=== PATIENT | male | born 1950 | race Caucasian/White ===

== ENCOUNTER 2017-08-25 09:53 | Outpatient (CLI) | payer MEDICARE, SELFPAY | END 2017-08-25 16:29 | disposition home or self-care (01) | LOC: ACC 09:56 | PROVIDERS: Family Provider Emergency Medicine; PCP Emergency Medicine; Visit Provider Emergency Medicine | DX: Z79.01 Long term (current) use of anticoagulants (principal); Z51.81 Encounter for therapeutic drug level monitoring; I48.91 Unspecified atrial fibrillation | CPT/HCPCS: 85610 ==

== ENCOUNTER 2017-09-25 10:46 | Outpatient (CLI) | payer MEDICARE, SELFPAY ==
[2017-09-25 13:14] LABS: PHA INR Fingerstick 2.2 (0.9-1.1)
== END 2017-09-25 13:15 | disposition home or self-care (01) ==
LOC: ACC 10:48
PROVIDERS: PCP Emergency Medicine; Visit Provider Emergency Medicine
DX: Z79.01 Long term (current) use of anticoagulants (principal); Z51.81 Encounter for therapeutic drug level monitoring; I48.91 Unspecified atrial fibrillation
CPT/HCPCS: 85610; 99211; G0463

== ENCOUNTER → 2017-10-22 10:45 | Outpatient (REF) | payer MEDICARE, SELFPAY ==
[2017-10-22 13:36] LABS: Amphetamine/Metha Screen,Urine Negative ng/mL (<1000); Barbiturates Screen,Urine Negative ng/mL (<200); Benzodiazepines Screen,Urine Positive ng/mL (200); Cannabinoid Screen,Urine Positive ng/mL (<50); Cocaine Screen,Urine Negative ng/g (<300); Methadone Screen,Urine Negative ng/mL (<300); Opiate Screen,Urine Positive ng/mL (<300); Phencyclidine Screen,Urine Negative ng/mL (<25)
== END ==
LOC: LAB 10:45
PROVIDERS: Visit Provider Emergency Medicine
DX: Z79.899 Other long term (current) drug therapy (principal)
CPT/HCPCS: 80305

== ENCOUNTER → 2018-01-22 16:14 | Outpatient (REF) | payer MEDICARE, SELFPAY ==
[2018-01-22 19:22] LABS: Amphetamine/Metha Screen,Urine Negative ng/mL (<1000); Barbiturates Screen,Urine Negative ng/mL (<200); Benzodiazepines Screen,Urine Positive ng/mL (<200); Cannabinoid Screen,Urine Positive ng/mL (<50); Cocaine Screen,Urine Negative ng/mL (<300); Methadone Screen,Urine Negative ng/mL (<300); Opiate Screen,Urine Positive ng/mL (<300); Phencyclidine Screen,Urine Negative ng/mL (<25)
== END ==
LOC: LAB 16:14
PROVIDERS: Visit Provider Emergency Medicine
DX: M51.16 Intervertebral disc disorders with radiculopathy, lumbar region (principal)
CPT/HCPCS: 80305

== ENCOUNTER → 2018-02-24 07:43 | Outpatient (REF) | payer MEDICARE, SELFPAY | LOC: LAB 07:43 | PROVIDERS: Visit Provider Emergency Medicine | DX: Z79.899 Other long term (current) drug therapy (principal) ==

== ENCOUNTER → 2018-04-21 07:37 | Outpatient (REF) | payer MEDICARE, SELFPAY ==
[2018-04-21 18:33] LABS: Basophils # 0.1 K/mm3 (0-0.2); Basophils % 0.8 % (0.1-2.0); Eosinophils # 0.8 K/mm3 (0.0-0.4); Eosinophils % 9.7 % (0.1-12.0); Hematocrit 48.3 % (42.0-52.0); Hemoglobin 15.6 g/dL (14.1-18.0); Lymphocytes # 2.9 K/mm3 (0.7-4.5); Lymphocytes % 33.8 K/mm3 (10-50); Mean Corpuscular HGB Conc 32.4 g/dL (31.8-35.4); Mean Corpuscular Hemoglobin 34.3 pg (27.0-31.2); Mean Corpuscular Volume 105.9 fl (80-94); Mean Platelet Volume 10.2 fl (7.4-10.4); Monocytes # 0.5 K/mm3 (0.1-1.0); Monocytes % 5.7 % (1.7-9.3); Neutrophils # 4.2 K/mm3 (1.8-7.8); Neutrophils % 49.9 % (37.0-80.0); Platelet Count 227 K/mm3 (142-424); Red Blood Count 4.56 M/mm3 (4.60-6.20); Red Cell Distribution Width 14.2 % (11.5-17.5); White Blood Count 8.5 K/mm3 (4.8-10.8)
[2018-04-21 18:45] LABS: Alanine Aminotransferase 21 U/L (12-78); Albumin Level 3.2 gm/dL (3.4-5.0); Alkaline Phosphatase 64 U/L (46-116); Anion Gap 11.9 mEq/L (5-15); Aspartate Amino Transferase 17 U/L (15-37); Bilirubin,Total 0.4 mg/dL (0.2-1.0); Blood Urea Nitrogen 4 mg/dL (7-18); Calcium 9.9 mg/dL (8.5-10.1); Carbon Dioxide 30 mmol/L (21.0-32.0); Chloride 101 mmol/L (98-107); Creatinine,Serum 0.81 mg/dL (0.70-1.30); Estimated Glomerular Filt Rate 95 ml/min (>60); Free T4 (Free Thyroxine) 1.12 ng/dl (0.76-1.46); GFR (African American) 115 ML/MIN (>60); Globulin 3.3 gm/dl (1.3-3.2); Glucose 65 mg/dL (74-106); Potassium 3.9 mmoL/L (3.5-5.1); Sodium 139 mmol/L (136-145); Thyroid Stimulating Hormone 1.42 uIU/ml (0.358-3.740); Total Protein,Serum 6.5 gm/dL (6.4-8.2)
[2018-04-23 15:41] LABS: Prostate Specific Ag 4.4 ng/mL (0.0-4.0)
[2018-04-23 15:42] LABS: PSA, Free 1.06 ng/mL
== END ==
LOC: LAB 07:37
PROVIDERS: Visit Provider Emergency Medicine
DX: I10 Essential (primary) hypertension (principal); N40.0 Benign prostatic hyperplasia without lower urinary tract symptoms; R53.83 Other fatigue
CPT/HCPCS: 80053; 84153; 84154; 84439; 84443; 85025

== ENCOUNTER 2018-05-21 12:15 | Outpatient (CLI) | payer MEDICARE, SELFPAY ==
[2018-05-21 14:27] LABS: PHA INR Fingerstick 1.2 (0.9-1.1)
== END 2018-05-21 14:29 | disposition home or self-care (01) ==
LOC: ACC 12:17
PROVIDERS: PCP Emergency Medicine; Visit Provider Emergency Medicine
DX: Z51.81 Encounter for therapeutic drug level monitoring (principal); Z79.01 Long term (current) use of anticoagulants
CPT/HCPCS: 85610; 99211; G0463

== ENCOUNTER 2018-05-29 12:45 | Outpatient (CLI) | payer MEDICARE, SELFPAY ==
[2018-05-29 13:47] LABS: PHA INR Fingerstick 1.3 (0.9-1.1)
== END 2018-05-29 13:57 | disposition home or self-care (01) ==
LOC: ACC 12:47
PROVIDERS: PCP Emergency Medicine; Visit Provider Emergency Medicine
DX: Z51.81 Encounter for therapeutic drug level monitoring (principal); Z79.01 Long term (current) use of anticoagulants; I48.91 Unspecified atrial fibrillation
CPT/HCPCS: 85610; 99211; G0463

== ENCOUNTER 2018-06-05 11:23 | Outpatient (CLI) | payer MEDICARE, SELFPAY ==
[2018-06-05 13:53] LABS: PHA INR Fingerstick 1.3 (0.9-1.1)
== END 2018-06-05 14:15 | disposition home or self-care (01) ==
LOC: ACC 11:24
PROVIDERS: PCP Emergency Medicine; Visit Provider Emergency Medicine
DX: Z51.81 Encounter for therapeutic drug level monitoring (principal); Z79.01 Long term (current) use of anticoagulants
CPT/HCPCS: 85610; 99211; G0463

== ENCOUNTER 2018-06-12 12:29 | Outpatient (CLI) | payer MEDICARE, SELFPAY ==
[2018-06-12 14:28] LABS: PHA INR Fingerstick 2.8 (0.9-1.1)
== END 2018-06-12 14:29 | disposition home or self-care (01) ==
LOC: ACC 12:30
PROVIDERS: PCP Emergency Medicine; Visit Provider Surgery
DX: I48.91 Unspecified atrial fibrillation (principal); Z51.81 Encounter for therapeutic drug level monitoring; Z79.01 Long term (current) use of anticoagulants
CPT/HCPCS: 85610; 99211; G0463

== ENCOUNTER 2018-06-24 13:31 | Outpatient (CLI) | payer MEDICARE, SELFPAY ==
[2018-06-24 14:41] LABS: PHA INR Fingerstick 1.9 (0.9-1.1)
== END 2018-06-24 14:43 | disposition home or self-care (01) ==
LOC: ACC 13:35
PROVIDERS: PCP Emergency Medicine; Visit Provider Emergency Medicine
DX: Z79.01 Long term (current) use of anticoagulants (principal)
CPT/HCPCS: 85610; 99211; G0463

== ENCOUNTER 2018-07-03 12:35 | Outpatient (CLI) | payer MEDICARE, SELFPAY ==
[2018-07-03 14:08] LABS: PHA INR Fingerstick 2.2 (0.9-1.1)
== END 2018-07-03 14:13 | disposition home or self-care (01) ==
LOC: ACC 12:37
PROVIDERS: PCP Emergency Medicine; Visit Provider Emergency Medicine
DX: Z51.81 Encounter for therapeutic drug level monitoring (principal); Z79.01 Long term (current) use of anticoagulants
CPT/HCPCS: 85610; 99211; G0463

== ENCOUNTER → 2018-09-18 14:34 | Outpatient (CLI) | payer MEDICARE, SELFPAY ==
[2018-09-18 18:18] LABS: Amphetamine/Metha Screen,Urine Negative ng/mL (<1000); Barbiturates Screen,Urine Negative ng/mL (<200); Benzodiazepines Screen,Urine Positive ng/mL (<200); Cannabinoid Screen,Urine Positive ng/mL (<50); Cocaine Screen,Urine Negative ng/mL (<300); Methadone Screen,Urine Negative ng/mL (<300); Opiate Screen,Urine Positive ng/mL (<300); Phencyclidine Screen,Urine Negative ng/mL (<25)
== END ==
PROVIDERS: Visit Provider Emergency Medicine
DX: M51.16 Intervertebral disc disorders with radiculopathy, lumbar region (principal)
CPT/HCPCS: 80305

== ENCOUNTER 2018-09-25 12:33 | Outpatient (CLI) | payer MEDICARE, SELFPAY ==
[2018-09-25 14:26] LABS: PHA INR Fingerstick 3.1 (0.9-1.1)
== END 2018-09-25 14:31 | disposition home or self-care (01) ==
LOC: ACC 12:34
PROVIDERS: PCP Emergency Medicine; Visit Provider Emergency Medicine
DX: Z51.81 Encounter for therapeutic drug level monitoring (principal); Z79.01 Long term (current) use of anticoagulants
CPT/HCPCS: 85610; 99211; G0463

== ENCOUNTER → 2018-10-01 08:27 | Outpatient (CLI) | payer MEDICARE, SELFPAY ==
--- NOTE | 2018-10-01 08:30 | US_ITS ---
US gallbladder HISTORY: Right upper quadrant pain ITS.REASON: ruq pain ORDERING PHYSICIAN: [facility] [place] MD PATIENT AGE: 68 years Comparison: None FINDINGS: PANCREAS: Unremarkable. No obvious mass or abnormal fluid collection. No ductal dilatation LIVER: No focal liver lesions demonstrated. Homogeneous echogenicity. No intrahepatic biliary ductal dilatation evident. Appropriate direction of blood flow within the portal vein. Portal vein is slightly prominent at 8 mm. RIGHT KIDNEY: Unremarkable. Normal size and echogenicity. No hydronephrosis. There is a 2.9 cm right renal cyst centrally and an exophytic 1 cm cyst superiorly GALLBLADDER: No gallstones, gallbladder wall thickening, pericholecystic fluid, or biliary dilatation. IMPRESSION: Negative gallbladder/right upper quadrant ultrasound 2.9 cm right renal cyst
== END ==
PROVIDERS: PCP Emergency Medicine; Visit Provider Emergency Medicine
DX: R10.11 Right upper quadrant pain (principal)
CPT/HCPCS: 76705

== ENCOUNTER 2018-10-19 10:54 | Outpatient (CLI) | payer MEDICARE, SELFPAY | END 2018-10-19 13:41 | disposition home or self-care (01) | LOC: ACC 10:57 | PROVIDERS: PCP Emergency Medicine; Visit Provider Emergency Medicine | DX: Z51.81 Encounter for therapeutic drug level monitoring (principal); Z79.01 Long term (current) use of anticoagulants; I48.91 Unspecified atrial fibrillation | CPT/HCPCS: 99211; G0463 ==

== ENCOUNTER 2018-11-18 10:46 | Outpatient (CLI) | payer MEDICARE, SELFPAY ==
[2018-11-18 14:25] LABS: PHA INR Fingerstick 2.8 (0.9-1.1)
== END 2018-11-18 14:27 | disposition home or self-care (01) ==
LOC: ACC 10:48
PROVIDERS: PCP Emergency Medicine; Visit Provider Emergency Medicine
DX: Z51.81 Encounter for therapeutic drug level monitoring (principal); Z79.01 Long term (current) use of anticoagulants; I48.91 Unspecified atrial fibrillation
CPT/HCPCS: 85610; 99211; G0463

== ENCOUNTER 2018-12-02 10:38 | Outpatient (CLI) | payer MEDICARE, SELFPAY ==
[2018-12-02 13:38] LABS: PHA INR Fingerstick 1.3 (0.9-1.1)
== END 2018-12-02 13:50 | disposition home or self-care (01) ==
LOC: ACC 10:40
PROVIDERS: PCP Emergency Medicine; Visit Provider Emergency Medicine
DX: Z51.81 Encounter for therapeutic drug level monitoring (principal); Z79.01 Long term (current) use of anticoagulants; I48.91 Unspecified atrial fibrillation
CPT/HCPCS: 85610; 99211; G0463

== ENCOUNTER 2018-12-09 13:01 | Outpatient (CLI) | payer MEDICARE, SELFPAY ==
[2018-12-09 13:44] LABS: PHA INR Fingerstick 1.9 (0.9-1.1)
== END 2018-12-09 13:53 | disposition home or self-care (01) ==
LOC: ACC 13:02
PROVIDERS: PCP Emergency Medicine; Visit Provider Emergency Medicine
DX: Z51.81 Encounter for therapeutic drug level monitoring (principal); Z79.01 Long term (current) use of anticoagulants; I48.91 Unspecified atrial fibrillation
CPT/HCPCS: 85610; 99211; G0463

== ENCOUNTER 2019-03-19 10:46 | Outpatient (CLI) | payer MEDICARE, SELFPAY ==
[2019-03-19 11:02] LABS: PHA INR Fingerstick 2.1 (0.9-1.1)
== END 2019-03-19 11:08 | disposition home or self-care (01) ==
PROVIDERS: PCP Emergency Medicine; Visit Provider Emergency Medicine
DX: Z79.01 Long term (current) use of anticoagulants (principal)
CPT/HCPCS: 85610; 99211; G0463

== ENCOUNTER → 2019-03-19 14:25 | Outpatient (CLI) | payer MEDICARE, SELFPAY ==
[2019-03-19 16:33] LABS: Amphetamine/Metha Screen,Urine Negative ng/mL (<1000); Barbiturates Screen,Urine Negative ng/mL (<200); Benzodiazepines Screen,Urine Positive ng/mL (<200); Cannabinoid Screen,Urine Positive ng/mL (<50); Cocaine Screen,Urine Negative ng/mL (<300); Methadone Screen,Urine Negative ng/mL (<300); Opiate Screen,Urine Positive ng/mL (<300); Phencyclidine Screen,Urine Negative ng/mL (<25)
== END ==
PROVIDERS: Visit Provider Emergency Medicine
DX: M51.16 Intervertebral disc disorders with radiculopathy, lumbar region (principal); Z51.81 Encounter for therapeutic drug level monitoring; Z79.01 Long term (current) use of anticoagulants; I48.91 Unspecified atrial fibrillation
CPT/HCPCS: 80305; 85610; 99211; G0463

== ENCOUNTER → 2019-03-30 13:27 | Outpatient (CLI) | payer MEDICARE, SELFPAY ==
[2019-03-30 13:32] LABS: MANUAL DIFFERENTIAL MANUAL DIFFERENTIAL (MANUAL DIFF)
[2019-03-30 13:40] LABS: Basophils % 0.5 % (0.1-2.0); Eosinophils # 0.6 K/mm3 (0.0-0.4); Eosinophils % 9.1 % (0.1-12.0); Hematocrit 48.2 % (42.0-52.0); Hemoglobin 15.5 g/dL (14.1-18.0); Mean Corpuscular HGB Conc 32.2 g/dL (31.8-35.4); Mean Corpuscular Hemoglobin 34.2 pg (27.0-31.2); Mean Corpuscular Volume 106.2 fl (80-94); Monocytes # 0.4 K/mm3 (0.1-1.0); Monocytes % 6.2 % (1.7-9.3); Neutrophils # 2.9 K/mm3 (1.8-7.8); Neutrophils % 41.2 % (37.0-80.0); Platelet Count 184 K/mm3 (142-424); Red Blood Count 4.54 M/mm3 (4.60-6.20)
[2019-03-30 14:29] LABS: Alanine Aminotransferase 15 U/L (12-78); Alkaline Phosphatase 44 U/L (46-116); Anion Gap 11.3 mEq/L (5-15); Aspartate Amino Transferase 16 U/L (15-37); Bilirubin,Total 0.5 mg/dL (0.2-1.0); Blood Urea Nitrogen 6 mg/dL (7-18); Calcium 9.3 mg/dL (8.5-10.1); Carbon Dioxide 29 mmol/L (21.0-32.0); Chloride 107 mmol/L (98-107); Chol/HDL Ratio 3.3 (1-3.5); Cholesterol 149 mg/dL (140-200); Creatinine,Serum 0.87 mg/dL (0.70-1.30); Estimated Glomerular Filt Rate 88 ml/min (>60); Free T4 (Free Thyroxine) 1.05 ng/dl (0.76-1.46); GFR (African American) 106 ML/MIN (>60); Glucose 90 mg/dL (74-106); HDL Cholesterol 45 mg/dL (27-67); LDL Cholesterol 83 mg/dL (0-130); Potassium 4.3 mmoL/L (3.5-5.1); Sodium 143 mmol/L (136-145); Thyroid Stimulating Hormone 2.94 uIU/ml (0.358-3.740); Triglycerides 107 mg/dL (30-200); VLDL Cholesterol 21 mg/dL (0-40)
[2019-03-30 16:44] LABS: Eosinophils % 12 % (0-3); Lymphocytes % 42 % (10-50); Monocytes % 8 % (2-9); Neutrophils % 38 % (42-76); Platelet Estimate Normal; RBC Morphology Normal; Total Cells Counted 100
[2019-04-01 06:13] LABS: Vitamin B12 1767 pg/mL (232-1245); Vitamin D 25 Hydroxy 35.7 ng/mL (30.0-100.0)
== END ==
PROVIDERS: Visit Provider Emergency Medicine
DX: R53.83 Other fatigue (principal); I48.91 Unspecified atrial fibrillation; E78.5 Hyperlipidemia, unspecified
CPT/HCPCS: 80053; 80061; 82607; 82652; 84439; 84443; 85007; 85014; 85018; 85048; 85049

== ENCOUNTER 2019-05-13 08:17 | Outpatient (CLI) | payer MEDICARE, SELFPAY ==
[2019-05-13 14:30] LABS: PHA INR Fingerstick 1.7 (0.9-1.1)
== END 2019-05-13 14:32 | disposition home or self-care (01) ==
LOC: ACC 08:18
PROVIDERS: PCP Emergency Medicine; Visit Provider Emergency Medicine
DX: Z51.81 Encounter for therapeutic drug level monitoring (principal); Z79.01 Long term (current) use of anticoagulants; I48.91 Unspecified atrial fibrillation
CPT/HCPCS: 85610; 99211; G0463

== ENCOUNTER 2019-06-03 11:34 | Outpatient (CLI) | payer MEDICARE, SELFPAY ==
[2019-06-04 09:39] LABS: PHA INR Fingerstick 2.4 (0.9-1.1)
== END 2019-06-04 09:43 | disposition home or self-care (01) ==
LOC: ACC 11:35
PROVIDERS: PCP Emergency Medicine; Visit Provider Emergency Medicine
DX: Z51.81 Encounter for therapeutic drug level monitoring (principal); Z79.01 Long term (current) use of anticoagulants; I48.91 Unspecified atrial fibrillation
CPT/HCPCS: 85610; 99211; G0463

== ENCOUNTER → 2019-08-19 14:17 | Outpatient (CLI) | payer MEDICARE, SELFPAY ==
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
--- NOTE | 2019-08-19 14:26 | XR_ITS ---
PROCEDURE: XR FOOT WT BEARING LT 3V CLINICAL INDICATION: pain COMPARISON: FTR3 FOOT-RT-3 VIEWS from 04/22/2013 FINDINGS: No fracture or dislocation. No lytic or blastic change. There is normal mineralization. The joint spaces are well-preserved. No significant degenerative/arthritic changes. No erosive changes evident. Other findings:There are degenerative changes at the ankle joint. IMPRESSION: No acute findings. Dictated by: Anurag Quintanilla MD 08/19/2019 15:10 Electronically signed by Anurag Quintanilla MD in [facility] 08/19/2019 15:10
[2019-08-19 14:36] LABS: Basophils # 0.1 K/mm3 (0-0.2); Basophils % 0.8 % (0.1-2.0); Eosinophils # 0.8 K/mm3 (0.0-0.4); Eosinophils % 10.9 % (0.1-12.0); Hematocrit 49.4 % (42.0-52.0); Hemoglobin 16.3 g/dL (14.1-18.0); Lymphocytes # 3.1 K/mm3 (0.7-4.5); Lymphocytes % 42.5 % (10-50); Mean Corpuscular HGB Conc 32.9 g/dL (31.8-35.4); Mean Corpuscular Hemoglobin 33.6 pg (27.0-31.2); Mean Corpuscular Volume 102.1 fl (80-94); Monocytes # 0.4 K/mm3 (0.1-1.0); Neutrophils % 40.7 % (37.0-80.0); Platelet Count 243 K/mm3 (142-424); Red Blood Count 4.84 M/mm3 (4.60-6.20); Red Cell Distribution Width 13.7 % (11.5-17.5); White Blood Count 7.4 K/mm3 (4.8-10.8)
[2019-08-19 15:11] LABS: Alanine Aminotransferase 24 U/L (12-78); Albumin Level 3.4 gm/dL (3.4-5.0); Albumin/Globulin Ratio 1.1 (1.1-1.8); Alkaline Phosphatase 51 U/L (46-116); Anion Gap 8.4 mEq/L (5-15); Aspartate Amino Transferase 19 U/L (15-37); Bilirubin,Total 0.5 mg/dL (0.2-1.0); Blood Urea Nitrogen 7 mg/dL (7-18); C-Reactive Protein 1.6 mg/dL (0.0-0.9); Calcium 9.8 mg/dL (8.5-10.1); Carbon Dioxide 31 mmol/L (21.0-32.0); Chloride 107 mmol/L (98-107); Creatinine,Serum 0.79 mg/dL (0.70-1.30); Estimated Glomerular Filt Rate 98 ml/min (>60); GFR (African American) 118 ML/MIN (>60); Globulin 3.2 gm/dl (1.3-3.2); Glucose 85 mg/dL (74-106); Potassium 4.4 mmoL/L (3.5-5.1); Sodium 142 mmol/L (136-145); Total Protein,Serum 6.6 gm/dL (6.4-8.2)
[2019-08-19 15:50] LABS: Erythrocyte Sedimentation Rate 17 mm/hr (0-20)
[2019-08-21 15:30] LABS: Vitamin D 25 Hydroxy 39.7 ng/mL (30.0-100.0)
== END ==
PROVIDERS: Visit Provider Podiatrist
DX: M79.672 Pain in left foot (principal); M79.671 Pain in right foot; E11.9 Type 2 diabetes mellitus without complications
CPT/HCPCS: 36415; 73630; 80053; 80323; 82652; 85025; 85651; 86140; 87070; 87077; 87186; 87205

== ENCOUNTER → 2019-08-25 08:17 | Outpatient (CLI) | payer MEDICARE, SELFPAY ==
--- NOTE | 2019-08-25 08:21 | US_ITS ---
APPROVED REPORT Exam Type: Lower Extremity Segmental Pressures Tableau Administrator: Lilia Robledo RVT Indications Rest Pain: Bilaterally PAD Current Smoker History of Smoking Pt has osteomyletitis rt toe,Pt has had bypass surgery on the right leg Pressures/Indices Right Indices Left Indices Brachial 118.00 mmHg Brachial 128.00 mmHg Low Thigh 150.00 mmHg 1.17 Low Thigh 153.00 mmHg 1.20 Calf 151.00 mmHg 1.18 Calf 140.00 mmHg 1.09 Ankle(PT) 140.00 mmHg 1.09 Ankle(PT) 157.00 mmHg 1.23 Ankle(DP) 164.00 mmHg 1.28 Ankle(DP) 148.00 mmHg 1.16 Digit 105.00 mmHg 0.82 Digit 91.00 mmHg 0.71 Findings RT TESSIE:1.09 LT TESSIE:1.23 RT TBI:0.82 LT TBI:1.23 Normal pulses bilateral Normal waveforms bilateral Conclusion No evidence significant arterial disease throughout the right and left lower extremities as evidenced by normal resting PVR waveforms and normal resting indices. Electronically signed by : Anurag Quintanilla MD 08/25/2019 18:23:28
--- NOTE | 2019-08-25 09:19 | MR_ITS ---
PROCEDURE: MR FOOT RT WO/W CON CLINICAL INDICATION: toe pain, wound, OM Wound of the great toe with pain swelling and drainage. Abnormal radiograph COMPARISON: XR FOOT WT BEARING LT 3V from 08/19/2019 XR FOOT WT BEARING RT 3V from 08/19/2019 TECHNIQUE: Routine multiplanar multi echo sequences are performed without and with gadolinium enhancement. FINDINGS: There is a lytic defect involving the proximal and medial aspect of the distal phalanx of the great toe corresponding to the radiographic abnormality. This shows increased T2 signal and demonstrates contrast enhancement. In addition, there is increased T2 signal involving the remaining aspect of the distal phalanx as well as the distal aspect of the proximal phalanx of the great toe. There is some mild enhancement along the distal and lateral aspect of the proximal phalanx of the great toe. There does appear to be a sinus tract from the lytic lesion to the skin surface medially with contrast enhancement along sinus tract and involving the cavity of the lytic lesion. These findings are consistent with osteomyelitis. Incidental note is made of a small amount of fluid in the ankle joint and along the posterior aspect of the distal tibia. Small focus of increased T2 signal involves the talar dome laterally suggesting an area of osteochondrosis. This measures approximately 7 mm. This does show some minimal contrast enhancement.. There is thickening of the nail bed of the great toe with contrast enhancement of the nail bed with cellulitis of the distal phalanx of the great toe. The ATFL is not identified and may be torn. The study was not tailored to the ankle however. IMPRESSION: The findings are compatible with osteomyelitis of the distal phalanx of the great toe with a sinus tract directed medially. There is also bone marrow edema of the distal aspect of the proximal phalanx of the great toe with some mild enhancement distally and laterally also suggesting osteomyelitis. Small area of suspected osteochondrosis of the talar dome laterally Dictated by: Anurag Quintanilla MD 08/26/2019 18:41 Electronically signed by Anurag Quintanilla MD in [facility] 08/26/2019 18:41
== END ==
PROVIDERS: PCP Emergency Medicine; Visit Provider Nurse Practitioner
DX: R09.89 Other specified symptoms and signs involving the circulatory and respiratory systems (principal); M86.9 Osteomyelitis, unspecified
CPT/HCPCS: 73720; 93923; A9576

== ENCOUNTER 2019-09-03 12:08 | Outpatient (CLI) | payer MEDICARE, SELFPAY ==
[2019-09-03 14:58] LABS: PHA INR Fingerstick 3.7 (0.9-1.1)
== END 2019-09-03 15:15 | disposition home or self-care (01) ==
LOC: ACC 12:10
PROVIDERS: PCP Emergency Medicine; Visit Provider Emergency Medicine
DX: Z51.81 Encounter for therapeutic drug level monitoring (principal); Z79.01 Long term (current) use of anticoagulants; I48.91 Unspecified atrial fibrillation
CPT/HCPCS: 85610; 99211; G0463

== ENCOUNTER 2019-09-06 14:03 | Outpatient (CLI) | payer MEDICARE, SELFPAY ==
[2019-09-06 15:46] LABS: PHA INR Fingerstick 1.5 (0.9-1.1)
== END 2019-09-06 15:45 | disposition home or self-care (01) ==
PROVIDERS: PCP Emergency Medicine; Visit Provider Emergency Medicine
DX: Z86.711 Personal history of pulmonary embolism (principal); Z51.81 Encounter for therapeutic drug level monitoring; Z79.01 Long term (current) use of anticoagulants; I48.91 Unspecified atrial fibrillation
CPT/HCPCS: 85610; 99211; G0463

== ENCOUNTER 2019-10-14 11:02 | Outpatient (CLI) | payer MEDICARE, SELFPAY ==
[2019-10-14 12:08] LABS: PHA INR Fingerstick 2.2 (0.9-1.1)
== END 2019-10-14 12:09 | disposition home or self-care (01) ==
LOC: ACC 11:03
PROVIDERS: PCP Emergency Medicine; Visit Provider Emergency Medicine
DX: Z51.81 Encounter for therapeutic drug level monitoring (principal); Z79.01 Long term (current) use of anticoagulants; I48.91 Unspecified atrial fibrillation
CPT/HCPCS: 85610; 99211; G0463

== ENCOUNTER 2019-11-09 13:06 | Outpatient (CLI) | payer MEDICARE, SELFPAY ==
[2019-11-09 15:05] LABS: PHA INR Fingerstick 1.5 (0.9-1.1)
== END 2019-11-09 15:08 | disposition home or self-care (01) ==
LOC: ACC 13:07
PROVIDERS: PCP Emergency Medicine; Visit Provider Emergency Medicine
DX: Z51.81 Encounter for therapeutic drug level monitoring (principal); Z79.01 Long term (current) use of anticoagulants
CPT/HCPCS: 85610; 99211; G0463

== ENCOUNTER → 2019-11-12 16:43 | Outpatient (CLI) | payer MEDICARE, SELFPAY ==
[2019-11-12 18:24] LABS: Amphetamine/Metha Screen,Urine Negative ng/ml (<1000)
[2019-11-12 18:26] LABS: Barbiturates Screen,Urine Negative ng/ml (<200); Benzodiazepines Screen,Urine Negative ng/ml (<200)
[2019-11-12 18:27] LABS: Cannabinoid Screen,Urine Positive ng/ml (<50)
[2019-11-12 18:28] LABS: Cocaine Screen,Urine Negative ng/ml (<300)
[2019-11-12 18:29] LABS: Methadone Screen,Urine Negative ng/ml (<300); Opiate Screen,Urine Positive ng/ml (<300)
[2019-11-12 18:30] LABS: Phencyclidine Screen,Urine Negative ng/ml (<25)
== END ==
PROVIDERS: Visit Provider Emergency Medicine
DX: M51.16 Intervertebral disc disorders with radiculopathy, lumbar region (principal)
CPT/HCPCS: 80305

== ENCOUNTER 2019-11-29 10:50 | Outpatient (CLI) | payer MEDICARE, SELFPAY ==
[2019-11-29 12:52] LABS: INR 5.89 (0.9-1.1); Prothrombin Time 56.3 seconds (9.4-11.8)
[2019-11-29 15:17] LABS: PHA INR Fingerstick 4.8 (0.9-1.1)
== END 2019-11-29 15:23 | disposition home or self-care (01) ==
PROVIDERS: PCP Emergency Medicine; Visit Provider Emergency Medicine
DX: Z51.81 Encounter for therapeutic drug level monitoring (principal); Z79.01 Long term (current) use of anticoagulants; I48.91 Unspecified atrial fibrillation
CPT/HCPCS: 36415; 85610; 99211; G0463

== ENCOUNTER → 2019-12-06 11:42 | Outpatient (CLI) | payer MEDICARE, SELFPAY ==
[2019-12-06 12:10] LABS: INR 1.06 (0.9-1.1)
== END ==
PROVIDERS: Visit Provider Emergency Medicine
DX: Z51.81 Encounter for therapeutic drug level monitoring (principal); Z79.01 Long term (current) use of anticoagulants
CPT/HCPCS: 36415; 85610

== ENCOUNTER 2019-12-13 10:57 | Outpatient (CLI) | payer MEDICARE, SELFPAY ==
[2019-12-13 12:02] LABS: PHA INR Fingerstick 2.9 (0.9-1.1)
== END 2019-12-13 12:03 | disposition home or self-care (01) ==
LOC: ACC 10:57
PROVIDERS: PCP Emergency Medicine; Visit Provider Emergency Medicine
DX: Z51.81 Encounter for therapeutic drug level monitoring (principal); Z79.01 Long term (current) use of anticoagulants; I48.91 Unspecified atrial fibrillation
CPT/HCPCS: 85610; 99211; G0463

== ENCOUNTER 2019-12-23 11:21 | Outpatient (CLI) | payer MEDICARE, SELFPAY ==
[2019-12-23 13:34] LABS: PHA INR Fingerstick 1.8 (0.9-1.1)
== END 2019-12-23 13:37 | disposition home or self-care (01) ==
LOC: ACC 11:23
PROVIDERS: PCP Emergency Medicine; Visit Provider Emergency Medicine
DX: Z51.81 Encounter for therapeutic drug level monitoring (principal); Z79.01 Long term (current) use of anticoagulants; I48.91 Unspecified atrial fibrillation
CPT/HCPCS: 85610; 99211; G0463

== ENCOUNTER 2019-12-30 11:37 | Outpatient (CLI) | payer MEDICARE, SELFPAY ==
[2019-12-30 14:28] LABS: PHA INR Fingerstick 1.7 (0.9-1.1)
== END 2019-12-30 14:30 | disposition home or self-care (01) ==
LOC: ACC 11:38
PROVIDERS: PCP Emergency Medicine; Visit Provider Emergency Medicine
DX: Z51.81 Encounter for therapeutic drug level monitoring (principal); Z79.01 Long term (current) use of anticoagulants; I48.91 Unspecified atrial fibrillation
CPT/HCPCS: 85610; 99211; G0463

== ENCOUNTER 2020-01-12 11:51 | Outpatient (CLI) | payer MEDICARE, SELFPAY | END 2020-01-12 14:39 | disposition home or self-care (01) | LOC: ACC 11:53 | PROVIDERS: PCP Emergency Medicine; Visit Provider Emergency Medicine | DX: Z79.01 Long term (current) use of anticoagulants (principal) | CPT/HCPCS: 85610; 99211; G0463 ==

== ENCOUNTER → 2020-01-12 12:19 | Outpatient (CLI) | payer MEDICARE, SELFPAY ==
[2020-01-13 14:10] LABS: Basophils % 0.4 % (0.1-2.0); Eosinophils # 0.3 K/mm3 (0.0-0.4); Eosinophils % 3.9 % (0.1-12.0); Hematocrit 44.1 % (42.0-52.0); Hemoglobin 14.6 g/dL (14.1-18.0); Lymphocytes # 2.8 K/mm3 (0.7-4.5); Lymphocytes % 42.2 % (10-50); Mean Corpuscular HGB Conc 33.1 g/dL (31.8-35.4); Mean Corpuscular Hemoglobin 35.3 pg (27.0-31.2); Mean Corpuscular Volume 106.6 fl (80-94); Monocytes # 0.4 K/mm3 (0.1-1.0); Monocytes % 6.4 % (1.7-9.3); Neutrophils # 3.1 K/mm3 (1.8-7.8); Neutrophils % 47.1 % (37.0-80.0); Platelet Count 181 K/mm3 (142-424); Red Blood Count 4.14 M/mm3 (4.60-6.20); Red Cell Distribution Width 14.8 % (11.5-17.5); White Blood Count 6.5 K/mm3 (4.8-10.8)
[2020-01-13 14:56] LABS: Chloride 107 mmol/L (98-107); Potassium 4.4 mmoL/L (3.5-5.1); Sodium 136 mmol/L (136-145)
[2020-01-13 14:58] LABS: Alanine Aminotransferase 11 U/L (12-78); Aspartate Amino Transferase 21 U/L (17-59); Blood Urea Nitrogen 6 mg/dl (9-20); Estimated Glomerular Filt Rate 112 ml/min (>60); GFR (African American) 136 ML/MIN (>60)
[2020-01-13 14:59] LABS: Albumin Level 2.9 g/dl (3.5-5.0); Albumin/Globulin Ratio 1.2 (1.1-1.8); Alkaline Phosphatase 45 U/L (38-126); Anion Gap 6.4 mEq/L (5-15); Bilirubin,Total 0.4 mg/dl (0.2-1.3); Calcium 9.3 mg/dl (8.4-10.2); Carbon Dioxide 27 mmol/L (22.0-30.0); Chol/HDL Ratio 4.7 (1-3.5); Cholesterol 154 mg/dl (140-200); Globulin 2.5 g/dL (1.3-3.2); Glucose 79 mg/dl (74-100); HDL Cholesterol 33 mg/dl (40-60); Total Protein,Serum 5.4 g/dl (6.3-8.2); Triglycerides 193 mg/dl (30-150); VLDL Cholesterol 39 mg/dL (0-40)
[2020-01-13 15:10] LABS: Direct LDL Cholesterol 95.45 mg/dL (100-129)
[2020-01-13 15:15] LABS: Free T4 (Free Thyroxine) 1.39 ng/dl (0.78-2.19)
[2020-01-13 15:30] LABS: Thyroid Stimulating Hormone 2.37 uIU/mL (0.465-4.68)
[2020-01-18 16:29] LABS: 1,25 Dihydroxy Vitamin D 38 pg/mL (.); 1,25-Dihydroxy, Vitamin D-2 <10 pg/mL (.); 1,25-Dihydroxy, Vitamin D-3 37 pg/mL (.)
== END ==
PROVIDERS: Visit Provider Emergency Medicine
DX: R53.83 Other fatigue (principal); M54.9 Dorsalgia, unspecified; K59.00 Constipation, unspecified; R20.8 Other disturbances of skin sensation; E03.9 Hypothyroidism, unspecified; Z51.81 Encounter for therapeutic drug level monitoring; Z79.01 Long term (current) use of anticoagulants
CPT/HCPCS: 80053; 80061; 82652; 84439; 84443; 85025; 85610; 99211; G0463

== ENCOUNTER → 2020-01-21 15:39 | Outpatient (CLI) | payer MEDICARE, SELFPAY ==
[2020-01-23 10:48] LABS: Folate 4.8 ng/mL (>3.0); Vitamin B12 >2000 pg/mL (232-1245)
== END ==
PROVIDERS: Physician Assistant; Visit Provider Emergency Medicine
DX: I10 Essential (primary) hypertension (principal)
CPT/HCPCS: 82607; 82746

== ENCOUNTER 2020-04-12 11:17 | Outpatient (CLI) | payer MEDICARE, SELFPAY ==
[2020-04-12 13:46] LABS: PHA INR Fingerstick 2.1 (0.9-1.1)
== END 2020-04-12 13:51 | disposition home or self-care (01) ==
LOC: ACC 11:18
PROVIDERS: PCP Emergency Medicine; Visit Provider Emergency Medicine
DX: Z51.81 Encounter for therapeutic drug level monitoring (principal); Z79.01 Long term (current) use of anticoagulants; I48.91 Unspecified atrial fibrillation
CPT/HCPCS: 85610; 99211; G0463

== ENCOUNTER 2020-06-12 10:52 | Outpatient (CLI) | payer MEDICARE, SELFPAY ==
[2020-06-12 13:19] LABS: PHA INR Fingerstick 2.1 (0.9-1.1)
== END 2020-06-12 13:22 | disposition home or self-care (01) ==
LOC: ACC 10:52
PROVIDERS: PCP Emergency Medicine; Visit Provider Emergency Medicine
DX: Z51.81 Encounter for therapeutic drug level monitoring (principal); Z79.01 Long term (current) use of anticoagulants; I48.91 Unspecified atrial fibrillation
CPT/HCPCS: 85610; 99211; G0463

== ENCOUNTER → 2020-08-10 13:53 | Outpatient (CLI) | payer MEDICARE, SELFPAY ==
[2020-08-10 14:05] LABS: Basophils # 0.1 K/mm3 (0-0.2); Basophils % 0.8 % (0.1-2.0); Eosinophils # 0.8 K/mm3 (0.0-0.4); Eosinophils % 10.7 % (0.1-12.0); Hematocrit 45.8 % (42.0-52.0); Hemoglobin 15.4 g/dL (14.1-18.0); Lymphocytes # 3.6 K/mm3 (0.7-4.5); Lymphocytes % 49.3 % (10-50); Mean Corpuscular HGB Conc 33.5 g/dL (31.8-35.4); Mean Corpuscular Hemoglobin 34.8 pg (27.0-31.2); Mean Corpuscular Volume 103.7 fl (80-94); Mean Platelet Volume 11.1 fl (7.4-10.4); Monocytes # 0.4 K/mm3 (0.1-1.0); Monocytes % 4.9 % (1.7-9.3); Neutrophils # 2.5 K/mm3 (1.8-7.8); Neutrophils % 34.4 % (37.0-80.0); Platelet Count 191 K/mm3 (142-424); Red Blood Count 4.42 M/mm3 (4.60-6.20); Red Cell Distribution Width 13.9 % (11.5-17.5); White Blood Count 7.4 K/mm3 (4.8-10.8)
[2020-08-10 14:09] LABS: Alanine Aminotransferase 12 U/L (12-78); Albumin Level 3.2 g/dl (3.5-5.0); Albumin/Globulin Ratio 1.3 (1.1-1.8); Alkaline Phosphatase 44 U/L (38-126); Anion Gap 8.8 mEq/L (5-15); Aspartate Amino Transferase 23 U/L (17-59); Bilirubin,Total 0.2 mg/dl (0.2-1.3); Blood Urea Nitrogen 6 mg/dl (9-20); Calcium 9.9 mg/dl (8.4-10.2); Carbon Dioxide 26 mmol/L (22.0-30.0); Chloride 108 mmol/L (98-107); Chol/HDL Ratio 4.5 (1-3.5); Cholesterol 153 mg/dl (140-200); Estimated Glomerular Filt Rate 96 ml/min (>60); GFR (African American) 116 ML/MIN (>60); Globulin 2.5 g/dL (1.3-3.2); Glucose 113 mg/dl (74-100); HDL Cholesterol 34 mg/dl (40-60); Potassium 3.8 mmoL/L (3.5-5.1); Sodium 139 mmol/L (136-145); Total Protein,Serum 5.7 g/dl (6.3-8.2); Triglycerides 325 mg/dl (30-150); VLDL Cholesterol 65 mg/dL (0-40)
[2020-08-10 14:19] LABS: Direct LDL Cholesterol 88.56 mg/dL (100-129)
[2020-08-10 14:25] LABS: 25-OH Vitamin D, Total 50.4 ng/mL (30-100)
[2020-08-10 14:28] LABS: T4 (Thyroxine) 8.9 ug/dl (5.53-11.0)
[2020-08-10 14:42] LABS: Prostate Specific Ag Screen 3.6 ng/ml (0.0-4.0)
== END ==
PROVIDERS: Visit Provider Emergency Medicine
DX: E78.5 Hyperlipidemia, unspecified (principal); R20.8 Other disturbances of skin sensation; E55.9 Vitamin D deficiency, unspecified; R53.83 Other fatigue; I10 Essential (primary) hypertension; Z12.5 Encounter for screening for malignant neoplasm of prostate
CPT/HCPCS: 80053; 80061; 82306; 84436; 84443; 85025; G0103

== ENCOUNTER 2020-08-11 11:12 | Outpatient (CLI) | payer MEDICARE, SELFPAY ==
[2020-08-11 16:16] LABS: PHA INR Fingerstick 1.9 (0.9-1.1)
== END 2020-08-11 16:24 | disposition home or self-care (01) ==
LOC: ACC 11:14
PROVIDERS: PCP Emergency Medicine; Visit Provider Emergency Medicine
DX: Z51.81 Encounter for therapeutic drug level monitoring (principal); Z79.01 Long term (current) use of anticoagulants; I48.91 Unspecified atrial fibrillation
CPT/HCPCS: 85610; 99211; G0463

== ENCOUNTER 2020-09-08 11:13 | Outpatient (CLI) | payer MEDICARE, SELFPAY ==
[2020-09-08 12:34] LABS: PHA INR Fingerstick 2.2 (0.9-1.1)
== END 2020-09-08 12:36 | disposition home or self-care (01) ==
LOC: ACC 11:17
PROVIDERS: PCP Emergency Medicine; Visit Provider Emergency Medicine
DX: Z51.81 Encounter for therapeutic drug level monitoring (principal); Z79.01 Long term (current) use of anticoagulants; I48.91 Unspecified atrial fibrillation
CPT/HCPCS: 85610; 99211; G0463

== ENCOUNTER → 2020-09-22 14:01 | Outpatient (CLI) | payer MEDICARE, SELFPAY ==
[2020-09-22 15:25] LABS: Coronavirus 19 IgG Antibody Negative (Negative); Coronavirus 19 IgM Antibody Negative (Negative)
== END ==
PROVIDERS: Visit Provider Emergency Medicine
DX: R05 Cough (principal); Z20.822 Contact with and (suspected) exposure to COVID-19
CPT/HCPCS: 86328

== ENCOUNTER → 2020-10-06 14:08 | Outpatient (CLI) | payer MEDICARE, SELFPAY ==
[2020-10-06 14:40] LABS: Amphetamine/Metha Screen,Urine Negative ng/ml (<1000); Benzodiazepines Screen,Urine Positive ng/ml (<200)
[2020-10-06 14:41] LABS: Barbiturates Screen,Urine Negative ng/ml (<200)
[2020-10-06 14:42] LABS: Cannabinoid Screen,Urine Positive ng/ml (<50); Cocaine Screen,Urine Negative ng/ml (<300)
[2020-10-06 14:43] LABS: Methadone Screen,Urine Negative ng/ml (<300)
[2020-10-06 14:44] LABS: Opiate Screen,Urine Positive ng/ml (<300); Phencyclidine Screen,Urine Negative ng/ml (<25)
== END ==
PROVIDERS: Visit Provider Emergency Medicine
DX: M51.16 Intervertebral disc disorders with radiculopathy, lumbar region
CPT/HCPCS: 80305

== ENCOUNTER 2020-10-20 10:39 | Outpatient (CLI) | payer MEDICARE, SELFPAY ==
[2020-10-20 11:36] LABS: PHA INR Fingerstick 2.4 (0.9-1.1)
== END 2020-10-20 11:46 | disposition home or self-care (01) ==
LOC: ACC 10:40
PROVIDERS: PCP Emergency Medicine; Visit Provider Emergency Medicine
DX: Z51.81 Encounter for therapeutic drug level monitoring (principal); Z79.01 Long term (current) use of anticoagulants; I48.91 Unspecified atrial fibrillation
CPT/HCPCS: 85610; 99211; G0463

== ENCOUNTER → 2020-10-23 11:15 | Outpatient (CLI) | payer MEDICARE, SELFPAY ==
--- NOTE | 2020-10-23 11:18 | XR_ITS ---
PROCEDURE: XR CHEST 2V CLINICAL HISTORY: cough Smoker COMPARISON: CR CXR1 CHEST-PORTABLE from 11/10/2012 CT CTAC CTA-CHEST from 11/10/2012 CR CXR CHEST(2 VIEWS-NOT PORTABLE) from 04/25/2015 CR CXR CHEST(2 VIEWS-NOT PORTABLE) from 01/16/2017 FINDINGS: The cardiomediastinal silhouette and pulmonary vascularity are within normal limits. COPD changes. Some linear area fibrotic changes noted in the right midlung. In the left perihilar region there are increased markings which may be related to an area of atelectasis and or infiltrate. Minimal nodularity noted in the right lower lung zone at the 6th rib anteriorly possibly due to nipple shadow. Follow-up may confirm. Degenerative changes thoracic spine IMPRESSION: COPD with left perihilar atelectasis and or infiltrate. Nonspecific nodular opacity right lower lung zone possibly due to nipple shadow and may be confirmed with follow-up to exclude developing nodule Dictated by: Anurag Quintanilla MD 10/23/2020 11:46 Anurag Quintanilla MD in [place] 10/23/2020 11:46
== END ==
PROVIDERS: PCP Emergency Medicine; Visit Provider Emergency Medicine
DX: R05 Cough (principal)
CPT/HCPCS: 71046

== ENCOUNTER → 2020-11-07 10:24 | Outpatient (CLI) | payer MEDICARE, SELFPAY ==
--- NOTE | 2020-11-07 10:35 | CT_ITS ---
PROCEDURE: CT CHEST WO CON CLINICAL INDICATION: abn cxr Follow-up pneumonia, injury with pain, right lower anterior rib pain COMPARISON: CT CTAC CTA-CHEST from 11/10/2012 CR XR CHEST 2V from 10/23/2020 TECHNIQUE: Axial images obtained with sagittal and coronal reformats. All CT scans at the facility use one or more dose reduction, viz: automated exposure control, ma/kV adjustment per patient size (including targeted exams where dose is matched to indication, i.e. head), or iterative reconstruction technique. FINDINGS: HEART AND MEDIASTINAL STRUCTURES: No mediastinal or hilar mass or adenopathy. Coronary artery calcifications. There is mild dilatation of the ascending aorta measuring up 4.1 cm. Previously the aorta measures 3.7 cm in AP dimension. LUNGS AND PLEURAL SPACES: COPD changes with scattered areas of scarring there is a nodule in the right apex measuring 12 by mm. There is evidence of old granulomatous disease. Patchy atelectasis or infiltrate is present in the right lower lobe and in the right upper lobe posteriorly as well as right upper lobe anteriorly. There is some honeycombing in the right and left upper lobe anteriorly in the subpleural region. 9 x 5 mm opacity is present in the left upper lobe associated with some atelectatic or fibrotic changes. Atelectasis or fibrosis is noted in the left upper lobe. Minimal atelectatic or fibrotic change left lower lobe. 5 mm nodular opacity right lower lobe. 4 mm nodule right lower lobe image 54 BONY STRUCTURES: Minimal cortical irregularity is noted involving the right 4th and 5th ribs anterior laterally and may be due to nondisplaced fractures. This is not readily apparent on the previous exam. UPPER ABDOMEN: There is a 2 cm hypodensity in the left hepatic dome suggesting a cyst. Multiple bilateral renal cysts are noted. ADDITIONAL FINDINGS: Gynecomastia IMPRESSION: 1. Nondisplaced fractures of the right 4th and 5th ribs. 2. COPD changes. Bilateral areas of atelectasis and/or fibrotic change noted with nodular opacities in the right upper and left upper lobe and right lower lobe which are nonspecific. Neoplasm is not excluded. Suggest 3 month follow-up to confirm short term stability. 3. Mild dilatation of the ascending aorta at 4 cm. Dictated by: Anurag Quintanilla MD 11/08/2020 07:25 Anurag Quintanilla MD in [place] 11/08/2020 07:25
== END ==
PROVIDERS: PCP Emergency Medicine; Visit Provider Emergency Medicine
DX: J44.9 Chronic obstructive pulmonary disease, unspecified (principal); R93.89 Abnormal findings on diagnostic imaging of other specified body structures
CPT/HCPCS: 71250

== ENCOUNTER 2020-12-06 11:06 | Outpatient (CLI) | payer MEDICARE, SELFPAY ==
[2020-12-06 12:05] LABS: PHA INR Fingerstick 3.8 (0.9-1.1)
== END 2020-12-06 12:07 | disposition home or self-care (01) ==
LOC: ACC 11:07
PROVIDERS: PCP Emergency Medicine; Visit Provider Emergency Medicine
DX: I48.91 Unspecified atrial fibrillation (principal); Z79.01 Long term (current) use of anticoagulants
CPT/HCPCS: 85610; 99211; G0463

== ENCOUNTER 2020-12-20 13:09 | Outpatient (CLI) | payer MEDICARE, SELFPAY ==
[2020-12-20 15:27] LABS: PHA INR Fingerstick 1.4 (0.9-1.1)
== END 2020-12-20 15:28 | disposition home or self-care (01) ==
LOC: ACC 13:10
PROVIDERS: PCP Emergency Medicine; Visit Provider Emergency Medicine
DX: Z51.81 Encounter for therapeutic drug level monitoring (principal); Z79.01 Long term (current) use of anticoagulants
CPT/HCPCS: 85610; 99211; G0463

== ENCOUNTER 2021-02-06 13:03 | Outpatient (CLI) | payer MEDICARE, SELFPAY ==
[2021-02-06 16:42] LABS: PHA INR Fingerstick 4.2 (0.9-1.1)
== END 2021-02-06 16:44 | disposition home or self-care (01) ==
LOC: ACC 13:04
PROVIDERS: PCP Emergency Medicine; Visit Provider Emergency Medicine
DX: Z79.01 Long term (current) use of anticoagulants (principal)
CPT/HCPCS: 85610; 99211; G0463

== ENCOUNTER → 2021-02-06 13:33 | Outpatient (CLI) | payer MEDICARE, SELFPAY ==
[2021-02-06 14:22] LABS: INR 4.96 (0.9-1.1)
== END ==
PROVIDERS: Visit Provider Emergency Medicine
DX: Z51.81 Encounter for therapeutic drug level monitoring (principal); Z79.01 Long term (current) use of anticoagulants
CPT/HCPCS: 36415; 85610; 99211; G0463

== ENCOUNTER 2021-02-14 13:01 | Outpatient (CLI) | payer MEDICARE, SELFPAY | END 2021-02-14 15:30 | disposition home or self-care (01) | LOC: ACC 13:03 | PROVIDERS: PCP Emergency Medicine; Visit Provider Emergency Medicine | DX: Z51.81 Encounter for therapeutic drug level monitoring (principal); Z79.01 Long term (current) use of anticoagulants; I48.91 Unspecified atrial fibrillation | CPT/HCPCS: 85610; 99211; G0463 ==

== ENCOUNTER → 2021-02-28 10:28 | Outpatient (CLI) | payer MEDICARE, SELFPAY ==
[2021-02-28 11:03] LABS: Prothrombin Time 11.1 seconds (10.1-12.5)
[2021-02-28 11:10] LABS: INR 0.94 (0.9-1.1)
== END ==
PROVIDERS: Visit Provider Emergency Medicine
DX: I48.91 Unspecified atrial fibrillation (principal); Z51.81 Encounter for therapeutic drug level monitoring; Z79.01 Long term (current) use of anticoagulants
CPT/HCPCS: 36415; 85610

== ENCOUNTER → 2021-04-16 10:54 | Outpatient (CLI) | payer MEDICARE, SELFPAY | PROVIDERS: PCP Emergency Medicine; Visit Provider Nurse Practitioner | DX: Z20.822 Contact with and (suspected) exposure to COVID-19 (principal) | CPT/HCPCS: C9803; U0003; U0005 ==

== ENCOUNTER → 2021-05-02 10:53 | Outpatient (CLI) | payer MEDICARE, SELFPAY ==
--- NOTE | 2021-05-02 10:53 | CT_ITS ---
PROCEDURE: CT CHEST WO CON CLINICAL INDICATION: 3 month f/u for Abnormal CT in October Follow-up pulmonary nodules COMPARISON: CT CT CHEST WO CON from 11/07/2020 TECHNIQUE: Axial images obtained with sagittal and coronal reformats. All CT scans at the facility use one or more dose reduction, viz: automated exposure control, ma/kV adjustment per patient size (including targeted exams where dose is matched to indication, i.e. head), or iterative reconstruction technique. FINDINGS: HEART AND MEDIASTINAL STRUCTURES: There are coronary artery calcifications. No mediastinal or hilar mass or adenopathy. LUNGS AND PLEURAL SPACES: COPD changes with scattered areas of scarring. Nodular opacities are once again noted in the apical segment of the right upper lobe. A 12 mm nodule previously described is not significantly changed. There are however new nodular opacities in the right upper lobe apical segment anteriorly with the largest nodule measuring 10 mm. In the anterior segment of the right upper lobe there are small nodular opacities with a tree-in-bud pattern not significantly changed. Scarring is present in the right upper lobe laterally. There are mild atelectatic changes along the right minor fissure. Small cluster of nodules are now present along the minor fissure medially in the inferior aspect of the right upper lobe measuring approximately 12 x 12 mm calcified nodules present in the right lower lobe. Increasing parenchymal opacification is present in the right lower lobe laterally. Multiple small nodules are present in the left upper lobe anteriorly some of which are slightly more prominent. Atelectatic changes are present in this region as well. No effusions. BONY STRUCTURES: There is a healing fracture involving the left 10th rib laterally. There is also a healing fracture involving the right 10th rib and right 9th rib laterally. UPPER ABDOMEN: There is a cystic lesion in the left hepatic dome and there is mild enlargement of both adrenal glands consistent with adenomatous involvement. Incompletely imaged right renal cysts. Suspected small lipoma in the proximal jejunum incompletely imaged series 3, image 95 at 13 mm. ADDITIONAL FINDINGS: No other significant abnormalities. IMPRESSION: There are numerous small bilateral pulmonary nodules some of which are more prominent and some of which are new compared to the previous exam as detailed above. There are also scattered areas of atelectatic change. Some of the nodules are in a tree in bud type pattern. These could be infectious or inflammatory. One cannot exclude the possibility of metastatic disease. Is there a known primary? PET CT may provide further evaluation for the larger nodules. Other nonacute findings as described above. Dictated by: Anurag Quintanilla MD 05/03/2021 10:59 Anurag Quintanilla MD in [place] 05/03/2021 10:59
== END ==
PROVIDERS: PCP Emergency Medicine; Visit Provider Emergency Medicine
DX: J44.9 Chronic obstructive pulmonary disease, unspecified (principal); R91.1 Solitary pulmonary nodule; R93.89 Abnormal findings on diagnostic imaging of other specified body structures
CPT/HCPCS: 71250

== ENCOUNTER → 2021-07-10 13:06 | Outpatient (CLI) | payer MEDICARE, SELFPAY ==
--- NOTE | 2021-07-10 13:06 | US_ITS ---
APPROVED REPORT Exam Type: Lower Extremity Segmental Pressures Rectifying Operator: Lilia Robledo RVT Indications Claudication: Rest Pain: Current Smoker PAIN LT THIGH,HX PRIOR FEM/POP BYPASS,RT GREAT TOE TURNS PURPLE AT TIMES Risk Factors Hypertension Hyperlipidemia Current Smoker Surgery/Intervention Bypass Graft 1 : Pressures/Indices Right Indices Left Indices Brachial 156.00 mmHg Brachial 157.00 mmHg Low Thigh 166.00 mmHg 1.06 Low Thigh 161.00 mmHg 1.03 Calf 171.00 mmHg 1.09 Calf 152.00 mmHg 0.97 Ankle(PT) 173.00 mmHg 1.10 Ankle(PT) 177.00 mmHg 1.13 Ankle(DP) 174.00 mmHg 1.11 Ankle(DP) 144.00 mmHg 0.92 Digit 61.00 mmHg 0.39 Digit 115.00 mmHg 0.73 Findings RT TESSIE:1.11 LT TESSIE:1.13 RT TBI:0.39 LT TBI:0.73 DAMPANED WAVEFORMS BILATERAL NORMAL PULSES BIALTERAL Conclusion RT TESSIE:1.11 LT TESSIE:1.13 RT TBI:0.39 LT TBI:0.73 DAMPANED WAVEFORMS BILATERAL NORMAL PULSES BIALTERAL Low right TBI suggesting small vessel disease Electronically signed by : Anurag Quintanilla MD 07/10/2021 16:10:13
== END ==
PROVIDERS: PCP Emergency Medicine; Visit Provider Emergency Medicine
DX: R09.89 Other specified symptoms and signs involving the circulatory and respiratory systems (principal)
CPT/HCPCS: 93923

== ENCOUNTER → 2021-10-08 10:14 | Outpatient (CLI) | payer MEDICARE, SELFPAY ==
--- NOTE | 2021-10-08 10:15 | MR_ITS ---
FINAL REPORT CLINICAL HISTORY: Back Pain. LT SIDED LBP AND GROIN PAIN. PAIN RADIATES DOWN TO LT KNEE [id number]. PRIOR HX BACK SURGERY X10YRS AGO. NO INJURY OR TRAUMA. NO PRIOR. FINDINGS: Multiplanar MR imaging of the lumbar spine was performed without contrast. There has been fusion at L5-S1. On the sagittal T2-weighted images, disc degeneration is seen at multiple levels. There are endplate changes at several levels. There is mild retrolisthesis of L4 on L5. A hemangioma is seen in the L2. There is no evidence of fracture. The conus has an unremarkable appearance. T12-L1: There is no significant canal stenosis or neuroforaminal narrowing. L1-2: There is an annular bulge present. There is facet arthropathy. There are vertebral osteophytes. There is no significant canal stenosis. There is mild right neuroforaminal narrowing. L2-3: There is an annular bulge present. There is facet arthropathy. There are vertebral osteophytes. There is a right foraminal disc protrusion. There is no significant canal stenosis. There is moderate right and mild left neuroforaminal narrowing. L3-4: There is an annular bulge present. There is facet arthropathy. There are vertebral osteophytes. There are bilateral foraminal disc protrusions. There is mild central canal stenosis with an AP diameter of the thecal sac of 7 mm. There is moderate right and severe left neuroforaminal narrowing. L4-5: There is an annular bulge present. There is facet arthropathy. There are vertebral osteophytes. There is mild central canal stenosis with an AP diameter of the thecal sac of 8 mm. There is severe bilateral neuroforaminal narrowing. L5-S1: There is fusion at this level. There is no significant canal stenosis. There is moderate bilateral neuroforaminal narrowing. IMPRESSION: Multilevel degenerative disc disease with areas of neuroforaminal narrowing and central canal stenosis. Disc protrusions at L2-3 and L3-4. Postoperative change at L5-S1. Reviewed, Interpreted and Dictated by Haris Jones III, MD Transcribed by Liz Dumas Authenticated by Haris Jones III, MD on 10/08/2021 12:10:35 PM [facility]
== END ==
PROVIDERS: PCP Emergency Medicine; Visit Provider Emergency Medicine
DX: M25.552 Pain in left hip (principal); M54.9 Dorsalgia, unspecified; M54.50 Low back pain, unspecified
CPT/HCPCS: 72148; 76376

== ENCOUNTER → 2022-03-15 18:17 | Outpatient (CLI) | payer MEDICARE, SELFPAY ==
[2022-03-15 17:54] LABS: Basophils # 0.1 K/mm3 (0-0.2); Basophils % 0.7 % (0.1-2.0); Eosinophils # 0.6 K/mm3 (0.0-0.4); Eosinophils % 8.4 % (0.1-12.0); Hematocrit 49.8 % (42.0-52.0); Hemoglobin 15.1 g/dL (14.1-18.0); Lymphocytes % 40.9 % (10-50); Mean Corpuscular HGB Conc 30.3 g/dL (31.8-35.4); Mean Platelet Volume 12.4 fl (7.4-10.4); Monocytes # 0.5 K/mm3 (0.1-1.0); Monocytes % 6.9 % (1.7-9.3); Neutrophils # 3.2 K/mm3 (1.8-7.8); Neutrophils % 43.1 % (37.0-80.0); Platelet Count 197 K/mm3 (142-424); Red Blood Count 4.45 M/mm3 (4.60-6.20); White Blood Count 7.3 K/mm3 (4.8-10.8)
[2022-03-15 19:19] LABS: Alanine Aminotransferase 16 U/L (12-78); Albumin Level 2.8 g/dl (3.5-5.0); Albumin/Globulin Ratio 1.2 (1.1-1.8); Alkaline Phosphatase 54 U/L (38-126); Anion Gap 4.8 mEq/L (5-15); Aspartate Amino Transferase 23 U/L (17-59); Bilirubin,Total 0.5 mg/dl (0.2-1.3); Blood Urea Nitrogen 8 mg/dl (9-20); Calcium 9.4 mg/dl (8.4-10.2); Carbon Dioxide 27 mmol/L (22.0-30.0); Chloride 110 mmol/L (98-107); Chol/HDL Ratio 3.3 (1-3.5); Cholesterol 119 mg/dl (140-200); Estimated Glomerular Filt Rate 111 ml/min (>60); GFR (African American) 135 ML/MIN (>60); Globulin 2.4 g/dL (1.3-3.2); Glucose 92 mg/dl (74-100); HDL Cholesterol 36 mg/dl (40-60); Potassium 3.8 mmoL/L (3.5-5.1); Sodium 138 mmol/L (136-145); Total Protein,Serum 5.2 g/dl (6.3-8.2); Triglycerides 107 mg/dl (30-150); VLDL Cholesterol 21 mg/dL (0-40)
[2022-03-15 19:37] LABS: Free T4 (Free Thyroxine) 1.58 ng/dl (0.78-2.19)
[2022-03-15 19:38] LABS: 25-OH Vitamin D, Total 38.6 ng/mL (30-100)
[2022-03-15 19:50] LABS: Prostate Specific Ag Screen 3.6 ng/ml (0.0-4.0); Thyroid Stimulating Hormone 2.92 uIU/mL (0.465-4.68)
[2022-03-20 19:00] LABS: Direct LDL Cholesterol 62 mg/dL (100-129)
== END ==
PROVIDERS: PCP Emergency Medicine; Visit Provider Emergency Medicine
DX: E55.9 Vitamin D deficiency, unspecified (principal); I10 Essential (primary) hypertension; R53.83 Other fatigue; K59.00 Constipation, unspecified; E03.9 Hypothyroidism, unspecified; Z12.5 Encounter for screening for malignant neoplasm of prostate
CPT/HCPCS: 80053; 80061; 82306; 84439; 84443; 85025; G0103

== ENCOUNTER → 2022-09-04 11:24 | Outpatient (CLI) | payer MEDICARE, SELFPAY ==
--- NOTE | 2022-09-04 11:31 | XR_ITS ---
FINAL REPORT CLINICAL HISTORY: C/o coughing w congestion & sniffles x 1 wk. Hx COPD. Smoker. COMPARISON: 10/23/2020 FINDINGS: Two views of the chest were obtained. The heart size and pulmonary vascularity are within normal limits. The mediastinum is normal. There is left mid lung opacities consistent with pneumonia. There is a 27 mm spiculated nodular opacity in the right lung base which is worrisome for neoplasm There is no pneumothorax. The bony thorax is intact. IMPRESSION: Left mid lung pneumonia. Spiculated nodular opacity in the right lung base, worrisome for neoplasm. Recommend chest CT with contrast. Reviewed, Interpreted and Dictated by Haris Jones III, MD Transcribed by Lili Blackburn Authenticated and . [facility]
== END ==
PROVIDERS: PCP Emergency Medicine; Visit Provider Emergency Medicine
DX: R05.9 Cough, unspecified (principal); R09.89 Other specified symptoms and signs involving the circulatory and respiratory systems
CPT/HCPCS: 71046

== ENCOUNTER 2022-11-18 00:27 | Emergency (ER) | payer MEDICARE, SELFPAY ==
[2022-11-18 00:29] VITALS: PULSE 63; RESP 16; TEMP 37; O2SAT 98; BMI 28.0
--- NOTE | 2022-11-18 00:35 | HMH.EDALLER ---
Discharge Plan Disposition Patient Disposition: Home, Self-Care Condition: Fair Prescriptions Prescriptions: New doxycycline monohydrate 100 mg capsule 100 mg PO BID 7 Days Qty: 14 0RF No Action sildenafil (pulm.hypertension) 20 mg tablet See Rx Instructions .ROUTE .COMPLEX Qty: 30 2RF Dose Instruction: TAKE ONE TABLET BY MOUTH daily DIRECTED Rx Instructions: TAKE ONE TABLET BY MOUTH daily DIRECTED Debrox 6.5 % drops 5 drp otic (ear) DAILY 4 Days Qty: 15 0RF alprazolam 1 mg tablet 1 mg PO BID Qty: 60 1RF gabapentin 400 mg capsule 400 mg PO TID Qty: 90 1RF hydrocodone-acetaminophen 7.5-325 mg tablet 1 tab PO QID PRN (Reason: pain) 30 Days Qty: 120 0RF cholecalciferol (vitamin D3) 2,000 unit capsule 2,000 unit PO DAILY metoprolol tartrate 25 mg tablet 25 mg PO DAILY Qty: 30 1RF Rx Instructions: Patient is to take 1 tablet for onset of A-fib and then every 8 hrs up to 24 hours or until heart converts to normal rhythm. sennosides-docusate sodium 8.6-50 mg capsule 1 tab-cap PO BID PRN (Reason: constipation) 90 Days Qty: 120 2RF simvastatin 40 mg tablet See Rx Instructions .ROUTE .COMPLEX Qty: 90 0RF Dose Instruction: TAKE 1 TABLET EVERY DAY Rx Instructions: TAKE 1 TABLET EVERY DAY lisinopril 20 mg tablet See Rx Instructions .ROUTE .COMPLEX Qty: 90 0RF Dose Instruction: TAKE 1 TABLET EVERY DAY Rx Instructions: TAKE 1 TABLET EVERY DAY Xarelto 20 mg tablet 20 mg PO DAILY Qty: 30 0RF Rx Instructions: must administer with evening meal sotalol 120 mg tablet 120 mg PO Q12H 90 Days Qty: 180 3RF Referrals Follow up/Referrals: [facility] [place] MD [Primary Care Provider] - See instructions Charles Mendez MD [Physician] - 7-14 days Clinical Impressions Clinical Impression: Incidental lung nodule, Allergic reaction caused by a drug Instructions Patient Instructions: Needle Biopsy of the Lung and Pleura, DI for Adverse Drug Reaction -- Allergic Discharge ED Provider: Dusty Colindres Allergic React/Insect Bite HPI General Chief complaint: Allergic Reaction Stated complaint: Possible allergic reaction,itching all over,vomiti Time Seen by Provider: 11/18/22 00:35 History of Present Illness HPI narrative: rash MD complaint: allergic reaction Onset (ago): hour(s) (2) Symptoms: facial swelling and tongue swelling Treatment prior to arrival: benadryl Allergies Allergy/AdvReac Type Severity Reaction Status Date / Time Penicillins Allergy Unknown Verified 09/10/22 09:07 Severity: mild Related Data Home Medications Medication Instructions Recorded Confirmed cholecalciferol (vitamin D3) 50 2,000 unit PO DAILY Supplement 12/22/17 09/10/22 mcg (2,000 unit) capsule Previous Rx's Medication Instructions Recorded sennosides 8.6 mg-docusate sodium 1 tab-cap PO BID PRN constipation 09/06/21 50 mg capsule 90 days #120 caps sildenafil (pulm.hypertension) 20 See Rx Instructions .Route 09/21/21 mg tablet .COMPLEX #30 tabs metoprolol tartrate 25 mg tablet 25 mg PO DAILY #30 tabs 03/22/22 lisinopril 20 mg tablet See Rx Instructions .Route 05/17/22 .COMPLEX #90 tabs simvastatin 40 mg tablet See Rx Instructions .Route 05/17/22 .COMPLEX #90 tabs carbamide peroxide 6.5 % ear drops 5 drp otic (ear) DAILY 4 days #15 07/22/22 (Debrox) mL rivaroxaban 20 mg tablet (Xarelto) 20 mg PO DAILY afib #30 tabs 08/01/22 sotalol 120 mg tablet 120 mg PO Q12H 90 days #180 tabs 08/30/22 alprazolam 1 mg tablet 1 mg PO BID nerves #60 tabs 09/10/22 gabapentin 400 mg capsule 400 mg PO TID #90 caps 09/10/22 hydrocodone 7.5 mg-acetaminophen 1 tab PO QID PRN pain 30 days #120 09/10/22 325 mg tablet tabs doxycycline monohydrate 100 mg 100 mg PO BID 7 days #14 caps 11/18/22 capsule PFSH PFS Disclaimer: The information contained in this section may have been updated after the patient was seen, as this
--- NOTE | 2022-11-18 00:41 | XR_ITS ---
PROCEDURE INFORMATION: Exam: XR Chest Exam date and time: 11/18/2022 12:48 AM Age: 72 years old Clinical indication: Cough and dyspnea; Additional info: Dyspnea, cough TECHNIQUE: Imaging protocol: Radiologic exam of the chest. Views: 2 views. COMPARISON: CR XR CHEST 2V 09/04/2022 11:45 AM FINDINGS: Lungs: Unchanged 2.7 cm spiculated nodule at the right lung base. No acute infiltrate or pulmonary edema. Pleural spaces: Unremarkable. No pleural effusion. No pneumothorax. Heart/Mediastinum: Unremarkable. No cardiomegaly. Bones/joints: No acute osseous abnormality. IMPRESSION: 1. No acute findings. 2. Unchanged 2.7 cm spiculated nodule at the right lung base.
--- NOTE | 2022-11-18 01:07 | CT_ITS ---
PROCEDURE INFORMATION: Exam: CTA Chest With Contrast Exam date and time: 11/18/2022 1:49 AM Age: 72 years old Clinical indication: Dyspnea TECHNIQUE: Imaging protocol: Computed tomographic angiography of the chest with contrast. 3D rendering (Not supervised by radiologist): MIP and/or 3D reconstructed images were created by the technologist. Radiation optimization: All CT scans at this facility use at least one of these dose optimization techniques: automated exposure control; mA and/or kV adjustment per patient size (includes targeted exams where dose is matched to clinical indication); or iterative reconstruction. Contrast material: ISOVUE; Contrast volume: 70 ml; Contrast route: INTRAVENOUS (IV); REPORTING DATA: Count of CT and Cardiac NM exams in prior 12 months: This patient has received 0 known CTs and 0 known cardiac nuclear medicine studies in the 12 months prior to the current study. COMPARISON: 1. CT CHEST WO CON 05/02/2021 10:59 AM 2. CR XR CHEST 2V 11/18/2022 12:48 AM 3. CR XR CHEST 2V 09/04/2022 11:45 AM FINDINGS: Pulmonary arteries: No pulmonary emboli are identified. Aorta: No aortic aneurysm or dissection. Lungs: A 2.5 x 3.6 cm irregular opacity in the right lower lobe, corresponding to the spiculated density seen on chest x-ray. Patchy areas of tree-in-bud inflammatory changes in both lungs, particularly the upper lobes. A few stable calcified granulomas, with largest measuring about 7 mm in the superior segment of the right lower lobe. Pleural spaces: Unremarkable. No pneumothorax. No pleural effusion. Heart: No cardiomegaly. No pericardial effusion. Coronary arteries: Moderate coronary artery calcifications. Lymph nodes: Mild subcarinal adenopathy, with a branch customer service representative node measuring up to 1.3 cm in short axis diameter. Kidneys and ureters: Multiple cysts in the right kidney, incompletely imaged; no routine follow-up recommended. Bones/joints: No acute osseous abnormality or evidence of osseous metastatic disease. Soft tissues: Unremarkable. IMPRESSION: 1. No pulmonary emboli are identified. 2. Mild subcarinal adenopathy, with a branch customer service representative node measuring up to 1.3 cm in short axis diameter. 3. A 2.5 x 3.6 cm irregular opacity in the right lower lobe, corresponding to the spiculated density seen on chest x-ray. There was some linear irregular opacity in this area back in 2020, but not the solid-appearing consolidation seen today. Primary diagnostic considerations include neoplasm versus infectious/inflammatory process. Recommend correlation with any outside workup, as this was reported on the prior chest radiograph from 09/04/2022. Consider three-month follow-up; consider PET scan and/or biopsy as clinically warranted. 4. Patchy areas of tree-in-bud inflammatory changes in both lungs, particularly the upper lobes. This is slightly increased from 2020. 5. A few stable calcified granulomas, with largest measuring about 7 mm in the superior segment of the right lower lobe. REFERENCES: Eugenio H, et al. Guidelines for Management of Incidental Pulmonary Nodules Detected on CT Images: From the Fleischner Society 2017. Radiology. 2017;284(1):228-243.
--- NOTE | 2022-11-18 01:07 | CT_ITS ---
PROCEDURE INFORMATION: Exam: CT Abdomen And Pelvis With Contrast Exam date and time: 11/18/2022 1:49 AM Age: 72 years old Clinical indication: Other: Malaise TECHNIQUE: Imaging protocol: Computed tomography of the abdomen and pelvis with contrast. Radiation optimization: All CT scans at this facility use at least one of these dose optimization techniques: automated exposure control; mA and/or kV adjustment per patient size (includes targeted exams where dose is matched to clinical indication); or iterative reconstruction. Contrast material: ISOVUE; Contrast volume: 70 ml; Contrast route: IV; REPORTING DATA: Count of CT and Cardiac NM exams in prior 12 months: This patient has received 0 known CTs and 0 known cardiac nuclear medicine studies in the 12 months prior to the current study. COMPARISON: 1. CT CHEST WO CON 05/02/2021 10:[address] ANGIO CHEST PE PROTOCOL 11/18/2022 1:49 AM FINDINGS: Liver: Stable 2 cm left hepatic cyst; no routine follow-up needed. Liver is otherwise unremarkable. Gallbladder and bile ducts: Normal gallbladder. No calcified stones. No ductal dilation. Pancreas: Normal pancreas. No ductal dilation. Spleen: Normal spleen. No splenomegaly. 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 Kidneys and ureters: No hydronephrosis or calculus. Multiple bilateral renal cysts; no routine follow-up recommended. Stomach and bowel: No acute bowel abnormality. No obstruction. No mucosal thickening. Appendix: Normal appendix. Intraperitoneal space: No free fluid or free air. Vasculature: Bilateral common iliac artery stents. No abdominal aortic aneurysm or dissection. Lymph nodes: No adenopathy. Urinary bladder: Normal urinary bladder. Reproductive: Enlarged prostate gland. Bones/joints: No acute osseous abnormality or evidence of osseous metastatic disease. Status post L5-S1 fusion. Soft tissues: Unremarkable. IMPRESSION: 1. No acute findings. 2. 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 3. Enlarged prostate gland.
[2022-11-18 01:20] LABS: Basophils % 0.1 % (0.1-2.0); Eosinophils # 0.2 K/mm3 (0.0-0.4); Eosinophils % 1.5 % (0.1-12.0); Hematocrit 52.6 % (42.0-52.0); Hemoglobin 17.5 g/dL (14.1-18.0); Lymphocytes # 2.5 K/mm3 (0.7-4.5); Lymphocytes % 23.4 % (10-50); Mean Corpuscular HGB Conc 33.2 g/dL (31.8-35.4); Mean Corpuscular Hemoglobin 33.6 pg (27.0-31.2); Mean Corpuscular Volume 101.3 fl (80-94); Monocytes # 0.2 K/mm3 (0.1-1.0); Monocytes % 2.1 % (1.7-9.3); Neutrophils # 7.8 K/mm3 (1.8-7.8); Neutrophils % 72.9 % (37.0-80.0); Platelet Count 215 K/mm3 (142-424); Red Cell Distribution Width 14.5 % (11.5-17.5); White Blood Count 10.6 K/mm3 (4.8-10.8)
[2022-11-18 01:24] LABS: Chloride 100 mmol/L (98-107)
[2022-11-18 01:25] LABS: Potassium 3.9 mmoL/L (3.5-5.1); Sodium 136 mmol/L (136-145)
[2022-11-18 01:28] LABS: Anion Gap 13.9 mEq/L (5-15); Blood Urea Nitrogen 8 mg/dl (9-20); Calcium 9.7 mg/dl (8.4-10.2); Carbon Dioxide 26 mmol/L (22.0-30.0); Creatinine Clearance Estimated 100 mL/min (50-200); Estimated Glomerular Filt Rate 95 ml/min (>60); GFR (African American) 115 ML/MIN (>60); Glucose 109 mg/dl (74-100)
[2022-11-18 03:19] VITALS: BP 126/70; PULSE 63; RESP 16; TEMP 36.6; O2SAT 98
== END 2022-11-18 03:24 | disposition home or self-care (01) ==
PROVIDERS: Emergency Provider Emergency Medicine; PCP Emergency Medicine
DX: L29.9 Pruritus, unspecified (principal); R11.10 Vomiting, unspecified; R22.0 Localized swelling, mass and lump, head; T88.7XXA Unspecified adverse effect of drug or medicament, initial encounter; F17.210 Nicotine dependence, cigarettes, uncomplicated
CPT/HCPCS: 71046; 71275; 74177; 80048; 85025; 96374; 96375; 99285; Q9967

== ENCOUNTER → 2022-11-20 08:20 | Outpatient (CLI) | payer MEDICARE, SELFPAY ==
[2022-11-20 15:30] LABS: Chol/HDL Ratio 3.7 (1-3.5); Cholesterol 142 mg/dl (140-200); HDL Cholesterol 38 mg/dl (40-60); Triglycerides 150 mg/dl (30-150); VLDL Cholesterol 30 mg/dL (0-40)
[2022-11-20 15:41] LABS: Direct LDL Cholesterol 85.21 mg/dL (100-129)
[2022-11-20 15:46] LABS: 25-OH Vitamin D, Total 43.4 ng/mL (30-100)
[2022-11-20 15:48] LABS: Free T4 (Free Thyroxine) 1.28 ng/dl (0.78-2.19)
[2022-11-20 16:01] LABS: Thyroid Stimulating Hormone 3.91 uIU/mL (0.465-4.68)
[2022-11-20 16:20] LABS: Vitamin B12 190 pg/mL (239-931)
== END ==
PROVIDERS: PCP Emergency Medicine; Visit Provider Emergency Medicine
DX: E55.9 Vitamin D deficiency, unspecified (principal); R53.83 Other fatigue; K59.00 Constipation, unspecified; E03.9 Hypothyroidism, unspecified
CPT/HCPCS: 80061; 82306; 82607; 84439; 84443

== ENCOUNTER → 2022-11-28 16:18 | Outpatient (CLI) | payer MEDICARE, SELFPAY ==
[2022-11-28 18:25] LABS: C-Reactive Protein 2.2 mg/L (0-4)
[2022-12-05 21:59] LABS: Aspergillus flavus Negative (Neg:<1:1); Aspergillus fumigatus Negative (Neg:<1:1); Aspergillus niger Negative (Neg:<1:1); Blastomyces Antibody Negative (Neg:<1:1)
== END ==
PROVIDERS: PCP Emergency Medicine; Visit Provider Internal Medicine Pulmonary Disease
DX: R06.09 Other forms of dyspnea (principal); J84.10 Pulmonary fibrosis, unspecified
CPT/HCPCS: 36415; 86140; 86480; 86606; 86612; 87070; 87116; 87186; 87205; 87206

== ENCOUNTER → 2022-11-29 07:45 | Outpatient (CLI) | payer MEDICARE, SELFPAY | PROVIDERS: Visit Provider Internal Medicine Pulmonary Disease | DX: J18.9 Pneumonia, unspecified organism (principal) | CPT/HCPCS: 87220 ==

== ENCOUNTER 2022-12-02 09:41 | Day surgery (SDC) | payer MEDICARE, SELFPAY ==
[2022-12-02] VITALS (10 sets, daily range): BP systolic 127–182; BP diastolic 52–92; PULSE 48–63; RESP 16–18; TEMP 36.2–43; O2SAT 94–99; BMI 29.0
--- NOTE | 2022-12-02 10:02 | ECG_ITS ---
APPROVED REPORT Exam: Resting ECG HR:49 bpm ECG Measurements Heart Rate 49 AXES WA 173 P 41 QRSd 130 QRS -52 QT 479 T 35 QTc 450 Conclusion SINUS BRADYCARDIA POSSIBLE RIGHT VENTRICULAR CONDUCTION DELAY [RSR (QR) IN V1/V2] LEFT ANTERIOR FASCICULAR BLOCK [QRS AXIS <= -45, QR IN I, RS IN II] SEPTAL MYOCARDIAL INFARCTION , PROBABLY OLD [40+ ms Q WAVE IN V1/V2] PROBABLE LATERAL MYOCARDIAL INFARCTION , OF INDETERMINATE AGE [35 ms Q WAVE IN I/aVL/V5/V6] ABNORMAL ECG UNCONFIRMED REPORT Electronically signed by : Colby Werner MD 12/03/2022 21:22:54
--- NOTE | 2022-12-02 11:23 | SUR.PREOP ---
Gulshan Gallego FLOOR ASSOCIATE at bedside, evaluated Abnorm EKG. Dr. Gardner came to bedside to eval as well. okay to proceed with Bronchoscopy today.
--- NOTE | 2022-12-02 11:33 | EXP.ANES.CKL ---
[facility] Disclaimer: The information contained in this section may have been updated after the patient was seen, as this information can be updated by other users. Medical History A-fib Atypical pneumonia Back pain with history of spinal surgery History of peripheral vascular disease History of pulmonary embolus (PE) HLD (hyperlipidemia) HTN (hypertension) Mediastinal lymphadenopathy Multiple lung nodules on CT Nodule of right lung Smoking greater than 30 pack years Surgical History (Updated 12/02/22 @ 10:25 by Jose Guadalupe Sierra RN) History of back surgery History of cardiac cath History of colonoscopy S/P peripheral artery angioplasty with stent placement Family History (Updated 12/02/22 @ 10:26 by Jose Guadalupe Sierra RN) Other Asthma COPD (chronic obstructive pulmonary disease) Family history of atrial fibrillation Hypertension Social History (Updated 12/02/22 @ 10:27 by Jose Guadalupe Sierra RN) Smoking Status: Current every day smoker tobacco type: cigarettes packs per day: 1 alcohol intake: never substance use type: denies use, marijuana and prescription drug current occupational status: retired Travel in the last 8 weeks: None household members: spouse housing: house caffeine: Yes [facility] Anesthesia Checklist Patient Identification Patient Identification: Arm Band Structural Data Admitted From: Home Planned Operative Procedure/s: Bronchoscopy with transbronchial bx, EBUS Consent for Planned Operative Procedure(s) Verified: Yes Verified Documents: Surgical Consent and History and Physical NPO Status Verified Time NPO: 00:00 Additional verifications Anesthesia Reactions: No Hx Blood Transfusions: No Blood Transfusion Reaction: No Airway Assessment C-Spine Mobility Assessed: Yes TMJ Mobility Assessed: Yes Dentition: Edentulous Neurological Assessment Level of Consciousness: Awake and Alert Anesthesia Plan Anesthesia Risk discussed: Yes Anesthesia Plan: Verified ASA Class: III Anesthesia Type: General Preoperative Comments Pre-Operative Comments: Dr. Gardner to preop to review abnormal EKG, assess pt. Pt cleared for procedure by Dr. Gardner, wants pt to follow up in cardiology clinic in the next 2-4 weeks.
--- NOTE | 2022-12-02 13:17 | XR_ITS ---
FINAL REPORT CLINICAL HISTORY: RIGHT BRONCH, 1:46 fluoro time FINDINGS: Fluoroscopic guidance was provided for the operating services. A single spot film was provided. One minute 46 seconds of fluoroscopy time was utilized. IMPRESSION: 1 minute 46 seconds of fluoroscopy time. 37.86 mGy. Reviewed, Interpreted and Dictated by Haris Jones III, MD Transcribed by Librado Guerra Authenticated and [facility]
--- NOTE | 2022-12-02 13:30 | P.PNANES_ITS ---
[facility] Anesthesia Record Part I Anesthesia Record I Intake, IV Amount: 1,000 Estimated blood loss (mL): 0 Urine output (mL): 0 Blood Pressure: 182/61 SaO2: 95 Pulse Rate: 59 Respiratory Rate: 16 Temperature: 97.1 F Patient is:: Drowsy and Stable Stable to PACU at:: 13:30
--- NOTE | 2022-12-02 13:42 | XR_ITS ---
FINAL REPORT CLINICAL HISTORY: s/p bronchoscopy COMPARISON: November 18, 2022 FINDINGS: The heart size is normal. The mediastinum is within normal limits. A right base nodule is again seen. There is mild right base opacity. There is no pleural effusion. There is no pneumothorax. The bony thorax is intact. IMPRESSION: Mild right base opacity could represent atelectasis or pneumonia. Reviewed, Interpreted and Dictated by Haris Jones III, MD Transcribed by Librado Guerra Authenticated and [facility]
--- NOTE | 2022-12-02 14:07 | EXP.BRONCH.N ---
Procedure: Date: 12/02/22 Patient Date of :: 1950 Procedure Performed:: Bronchoscopy with endobronchial ultrasound-guided fine-needle aspiration, airway examination, bronchoalveolar lavage and transbronchial lung biopsy Indications:: Lung nodule and lymphadenopathy Performing Provider:: Charles Mendez MD Referring Provider:: Dr:Mt Coppola MD Sedation:: General anesthesia Procedure:: Bronchoscopy with endobronchial ultrasound-guided fine-needle aspiration, airway examination, bronchoalveolar lavage and transbronchial lung biopsy: A clean EBUS bronchoscopy was advanced to the ET tube and lymph node surveillance was performed. Patient noted to have lymphadenopathy at stations 10, 7 and 10 R. 7 passes were performed at each lymph node station. FNA samples from 5 passes from each lymph node station were sent in CytoLyt for cytopathologic examination. Remaining 2 samples were sent in thyoglycolatebroth and a normal saline separately for cultures. Discussed with the lab regarding the expiry date on the thio glycol light medium sample and lab stated that they are in backorder and to continue send the specimens and the thyroglycolate medium. Pathology at bedside, confirmed lymphoid tissue. No preliminary evidence of malignancy noted EBUS bronchoscopy was retracted and clean DIAGNOSTIC bronchoscopy was advanced through the ET tube and airways were examined up to subsegmental bronchi. Airways appeared grossly normal, no evidence of mucoid secretions, mucous plugging active bleeding/old blood clots noted. Bronchoalveolar lavage was performed in the RIGHT LOWER LOBE with instillation of 60 cc normal saline with return of 30 cc back. BAL fluid was sent for cell count and differential along with bacterial fungal and AFB stain and cultures. Transbronchial biopsy was performed in the RIGHT LOWER LOBE with a total of 7 biopsies performed, 5 biopsy specimens were sent in formalin for cytopathologic examination. The other 2 biopsy samples, were sent one each in two separate normal saline specimen cups for bacterial fungal and AFB stain cultures. Special request was also made for the pathologist to evaluate for AFB and fungal organisms on the cytopathologic examination. Patient tolerated the procedure with no immediate acute complications. We will follow the patient in pulmonary clinic in 7 to 10 days. Findings:: Please see the procedure note Recommendations:: Please see the procedure note. Postoperative bronchoscopy instructions Follow in clinic Complications:: No acute immediate complication Estimated blood obtained (mL): 10
--- NOTE | 2022-12-02 14:43 | SUR.PHASEII ---
Dr. Mendez at bedside speaking to pt and .
--- NOTE | 2022-12-03 07:26 | P.PNANES_ITS ---
[facility] Anesthesia Record Part II Anesthesia Record Part II Discharge Time: 14:00 Destination: Surgical Day Care (OP Surgery) PACU nurse assessment reviewed?: Yes Patient Condition:: Good Anesthesia Complications:: None Swallowing reflex intact?: Yes Cyanosis?: No Blood Pressure: 133/52 Pulse Rate: 48 Temperature: 97.9 F Mental Status: Alert & Oriented Pain level:: 0 Nausea and/or vomitting:: None Intake, IV Amount: 0
[2022-12-03 07:27] VITALS: BP 133/52; PULSE 48; TEMP 36.6
== END 2022-12-02 14:50 | disposition home or self-care (01) ==
PROVIDERS: PCP Emergency Medicine; Visit Provider Internal Medicine Pulmonary Disease
PROC: (CPT 31624; principal; 2022-12-02 11:15)
DX: J18.9 Pneumonia, unspecified organism (principal); I10 Essential (primary) hypertension; Z79.899 Other long term (current) drug therapy; F17.210 Nicotine dependence, cigarettes, uncomplicated; R93.89 Abnormal findings on diagnostic imaging of other specified body structures; R91.8 Other nonspecific abnormal finding of lung field; R59.0 Localized enlarged lymph nodes
CPT/HCPCS: 31624; 31628; 31653; 71045; 76000; 87070; 87077; 87102; 87116; 87186; 87205; 87206; 88112; 88172; 88173; 88305; 88312; 89051; 93005; J2405

== ENCOUNTER → 2022-12-05 12:59 | Outpatient (CLI) | payer MEDICARE, SELFPAY ==
[2022-12-11 13:14] LABS: QuantiFERON-TB Gold Plus Positive (Negative)
== END ==
PROVIDERS: PCP Emergency Medicine; Visit Provider Internal Medicine Pulmonary Disease
DX: Z51.81 Encounter for therapeutic drug level monitoring (principal); Z79.01 Long term (current) use of anticoagulants; I48.91 Unspecified atrial fibrillation
CPT/HCPCS: 86480

== ENCOUNTER → 2023-02-19 12:27 | Outpatient (CLI) | payer MEDICARE, SELFPAY | PROVIDERS: PCP Emergency Medicine; Visit Provider Internal Medicine | DX: R07.9 Chest pain, unspecified (principal); I48.0 Paroxysmal atrial fibrillation; R00.1 Bradycardia, unspecified | CPT/HCPCS: 93225 ==

== ENCOUNTER → 2023-02-27 10:58 | Outpatient (CLI) | payer MEDICARE, SELFPAY ==
--- NOTE | 2023-02-27 11:07 | NM_ITS ---
APPROVED REPORT Exam: Nuclear Stress Test Indication: chest pain..palpitations..fatigue..a-fib Patient Location: Outpatient Stress Tech: Melanie Lei IN Tech:Vicki Talavera ARRT RT(R)(N) Ht: 6 ft 5 in Wt: 240 lbs HR: 62 bpm BP: 183/78 mmHg BSA: 2.42 m2 Rhythm: NSR TID: 1.06 BMI: 28.4 History: chest pain..palpitations..fatigue..a-fib Procedure: Patient received 0.4 mg of intravenous Lexiscan, resting heart rate 62 bpm, resting blood pressure 183/78 mmHg, with Lexiscan maximum heart rate achieved was 73 bpm which is 85 % of the maximum predicted heart rate and blood pressure was 183/78 mmHg. With Lexiscan, patient denied any complaint of chest pain. Cardiac Stress and Resting SPECT Images: Cardiac Stress and Resting SPECT images were obtained using technetium 99m Myoview 32.2 mCi stress and 10.46 mCi at rest. Resting and stress imaging in both supine and prone positions demonstrate a medium sized, moderate, partially reversible perfusion defect in the basal to mid inferior LV wall. Gated imaging demonstrates normal global LV systolic function. There is mild hypokinesis in the basal inferior LV wall. LVEF is calculated at 55%. Conclusion: Medium sized, moderate, partially reversible perfusion defect in the basal to mid inferior LV wall. Findings are suggestive of partial reversible ischemia. Gated imaging demonstrates normal global LV systolic function. There is mild hypokinesis in the basal inferior LV wall. LVEF is calculated at 55%. Electronically signed by : Katelyn Ruvalcaba, 03/02/2023 19:18:21
--- NOTE | 2023-02-27 11:07 | CA_ITS ---
APPROVED REPORT Exam: Pharmacologic Technologist: Melanie Christy, Ht: 6 ft 3 in Wt: 231 lbs BSA: 2.33 m2 HR: 50 bpm BP: 183/78 mmHg Rhythm: NSR Indications: Afib, fatigue, CP Medical History Medications: Lisinopril,,,,, Alprazolam,,,,, Simvastatin,,,,, Gabapentin,,,,, Sotalol,,,,, XaRELTO,,,,, Vit D3,,,,, Hydrocodone-Acetaminophen,,,,, SeNnosides docusate,,,,, Metorprolol,,,,, Stress Test Details Test: LEXISCAN Reason for pharmacologic stress test: physical limitation. HR Resting HR: 62 bpm Max Heart Rate (APMHR): 149 bpm Max HR Achieved: 73 bpm Target HR (85% APMHR): 127 bpm % of APMHR: 49 Recovery HR: 61 bpm BP Resting BP: 183.0/78.0 mmHg Max BP: 183.0/78.0 mmHg Recovery BP: 161.0/83.0 mmHg ECG Resting ECG: sinus bradycardia, IVCD, LAFB Stress ECG: No change Arrhythmia: None Clinical Exercise duration: 04:00 min Highest Stage Achieved: Exercise capacity: 1.0 METs Stress ECG Conclusion Symptoms: Mild chest pressure, mild heart & stomach discomfort. Arrhythmias/Ectopy: None. ST-T Changes: No significant ST changes. Conclusion: Unremarkable Lexiscan stess. Myoview images reported sepatately. Test Summary REST . . . . . . . Resting REST 07:48 . . 62 . 183/ 78 . . Stage 1 01:00 . . 67 . . . . Stage 2 01:00 . . 70 . . . . Stage 3 01:00 . . 66 . 174/ 88 . . Stage 4 01:00 . . 66 . 165/ 79 . Stop exercise at 04:00 RECOVERY 01:00 . . 63 . . . . RECOVERY 02:00 . . 65 . 149/ 82 . . RECOVERY 03:00 . . 62 . 149/ 82 . . RECOVERY 03:23 . . 62 . 161/ 83 . . Electronically signed by : Katelyn Ruvalcaba, 03/02/2023 19:15:19
== END ==
LOC: RAD 10:59
PROVIDERS: PCP Emergency Medicine; Visit Provider Internal Medicine
DX: E78.5 Hyperlipidemia, unspecified (principal); I10 Essential (primary) hypertension; I25.10 Atherosclerotic heart disease of native coronary artery without angina pectoris; I48.0 Paroxysmal atrial fibrillation; R00.1 Bradycardia, unspecified; R07.9 Chest pain, unspecified
CPT/HCPCS: 78452; 93017; A9502; J2785

== ENCOUNTER 2023-03-06 08:28 | Day surgery (SDC) | payer MEDICARE, SELFPAY ==
[2023-03-06] VITALS (13 sets, daily range): BP systolic 139–191; BP diastolic 69–100; PULSE 49–61; RESP 17–20; TEMP 36.9; O2SAT 95–99; BMI 28.8
--- NOTE | 2023-03-06 07:04 | IR_ITS ---
APPROVED REPORT Patient Location: Outpatient PROCEDURES Left heart catheterization Left ventriculogram Selective coronary angiogram Drug-eluting stent deployment to the proximal LAD INDICATION Coronary artery disease, Angina pectoris, Abnormal Myoview, Informed consent was obtained prior to the procedure. COMPLICATIONS NONE Estimated Blood Loss: LESS THAN 10 ML TECHNIQUE One percent lidocaine used to anesthetize the right anterior aspect of the wrist. The right radial artery was accessed via the Seldinger technique. A 6 Monegasque sheath was placed in the right radial artery. 2.5 mg of Verapamil, 800 mcg of nitroglycerin, 1mg Lidocaine and 5000 U Heparin were given through the arterial sheath. The papa catheter was also used to perform left heart catheterization, left ventriculogram and selective coronary angiogram. At the end the diagnostic angiogram therapeutic heparin was administered giving a therapeutic ACT and the guide catheter was placed in left main artery followed by Choice PT extra-support wire down the LAD. A 3.5 x 34 mm [place] frontier stent was deployed at 14 bobbi reducing the stenosis. An additional 3.5 x 12 mm noncompliant balloon was deployed at 20 and 24 bobbi in the mid and proximal portion of the stent. Following this a 4 mm x 12 mm noncompliant balloon was deployed at 20 bobbi in the proximal and midportion of further post dilate. Excellent angiographic results were obtained with DERIAN-3 flow being present before and after the procedure. In the procedure the apparatus was removed the sheath was removed and hemostasis was achieved using TR banding patient was transferred to the postop putting in stable condition ANGIOGRAPHIC RESULTS The left main artery Normal The left anterior descending artery Has a proximal concentric 90% stenosis followed by 40% stenosis The circumflex artery Large nondominant and normal The right coronary artery Is dominant and has proximal and mid vessel 20 to 30% stenosis The MELTON ventriculogram reveals Preserved at 55% with mild left ventricular dilatation The left ventricular end-diastolic pressure 10 mmHg IMPRESSION Severe proximal LAD disease Accessible stenting the proximal LAD severe disease reduced to 0% with 1 drug-eluting stent Preserved left ventricular function with mild left ventricular dilatation Normal left ventricular end-diastolic pressure PLAN 1. Effient 10 mg daily plus aspirin 81 mg daily 2. LDL less than 55 to be achieved with high intensity statin 3. Avoidance of tobacco products 4. Risk factor modification 5. Cardiac rehabilitation Electronically signed by : Michael Gardner MD 03/06/2023 11:11:44
[2023-03-06 09:00] LABS: Basophils # 0.1 K/mm3 (0-0.2); Basophils % 0.6 % (0.1-2.0); Eosinophils # 0.6 K/mm3 (0.0-0.4); Eosinophils % 7.3 % (0.1-12.0); Hematocrit 52.1 % (42.0-52.0); Hemoglobin 16.4 g/dL (14.1-18.0); Lymphocytes # 2.1 K/mm3 (0.7-4.5); Lymphocytes % 24.7 % (10-50); Mean Corpuscular HGB Conc 31.5 g/dL (31.8-35.4); Mean Corpuscular Hemoglobin 33.9 pg (27.0-31.2); Mean Corpuscular Volume 107.4 fl (80-94); Mean Platelet Volume 9.2 fl (7.4-10.4); Monocytes # 0.5 K/mm3 (0.1-1.0); Monocytes % 5.5 % (1.7-9.3); Neutrophils # 5.2 K/mm3 (1.8-7.8); Neutrophils % 61.8 % (37.0-80.0); Platelet Count 204 K/mm3 (142-424); Red Blood Count 4.86 M/mm3 (4.60-6.20); Red Cell Distribution Width 13.5 % (11.5-17.5); White Blood Count 8.5 K/mm3 (4.8-10.8)
[2023-03-06 09:08] LABS: Chloride 106 mmol/L (98-107); Sodium 139 mmol/L (136-145)
[2023-03-06 09:11] LABS: Blood Urea Nitrogen 8 mg/dl (9-20); Carbon Dioxide 31 mmol/L (22.0-30.0); Creatinine Clearance Estimated 100 mL/min (50-200); Estimated Glomerular Filt Rate 95 ml/min (>60); GFR (African American) 115 ML/MIN (>60)
[2023-03-06 09:12] LABS: Calcium 9.9 mg/dl (8.4-10.2); Glucose 105 mg/dl (74-100)
--- NOTE | 2023-03-06 15:15 | P.CONPHA_ITS ---
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
[2023-03-06 15:22] LABS: CATHL Activated Clotting Time > 400 SEC (74-125)
== END 2023-03-06 15:19 | disposition home or self-care (01) ==
PROVIDERS: Internal Medicine; PCP Emergency Medicine; Visit Provider Internal Medicine
DX: R94.39 Abnormal result of other cardiovascular function study (principal); Z79.899 Other long term (current) drug therapy; I48.0 Paroxysmal atrial fibrillation; I10 Essential (primary) hypertension; Z79.01 Long term (current) use of anticoagulants; I25.118 Atherosclerotic heart disease of native coronary artery with other forms of angina pectoris; F17.210 Nicotine dependence, cigarettes, uncomplicated; E78.5 Hyperlipidemia, unspecified
CPT/HCPCS: 80048; 85025; 85347; 92928; 93458; 99152; C1725; C1769; C1876; C9600; J1644; Q9967

== ENCOUNTER → 2023-03-20 10:00 | Outpatient (CLI) | payer MEDICARE, SELFPAY ==
[2023-03-20 10:30] LABS: Basophils # 0.1 K/mm3 (0-0.2); Basophils % 0.6 % (0.1-2.0); Eosinophils # 0.8 K/mm3 (0.0-0.4); Eosinophils % 9.3 % (0.1-12.0); Hematocrit 50.6 % (42.0-52.0); Hemoglobin 15.9 g/dL (14.1-18.0); Lymphocytes # 2.4 K/mm3 (0.7-4.5); Lymphocytes % 27.1 % (10-50); Mean Corpuscular HGB Conc 31.4 g/dL (31.8-35.4); Mean Corpuscular Hemoglobin 33.7 pg (27.0-31.2); Mean Corpuscular Volume 107.3 fl (80-94); Mean Platelet Volume 8.7 fl (7.4-10.4); Monocytes # 0.5 K/mm3 (0.1-1.0); Monocytes % 5.4 % (1.7-9.3); Neutrophils # 5.1 K/mm3 (1.8-7.8); Neutrophils % 57.6 % (37.0-80.0); Platelet Count 226 K/mm3 (142-424); Red Blood Count 4.71 M/mm3 (4.60-6.20); Red Cell Distribution Width 13.4 % (11.5-17.5); White Blood Count 8.9 K/mm3 (4.8-10.8)
[2023-03-20 10:45] LABS: Chloride 107 mmol/L (98-107); Sodium 143 mmol/L (136-145)
[2023-03-20 10:48] LABS: Blood Urea Nitrogen 7 mg/dl (9-20); Carbon Dioxide 30 mmol/L (22.0-30.0); Estimated Glomerular Filt Rate 83 ml/min (>60); GFR (African American) 101 ML/MIN (>60)
[2023-03-20 10:49] LABS: Calcium 10.3 mg/dl (8.4-10.2); Glucose 107 mg/dl (74-100)
== END ==
PROVIDERS: PCP Emergency Medicine; Visit Provider Internal Medicine Medical Oncology
DX: I25.10 Atherosclerotic heart disease of native coronary artery without angina pectoris (principal); Z95.5 Presence of coronary angioplasty implant and graft
CPT/HCPCS: 36415; 80048; 85025

== ENCOUNTER → 2023-06-26 08:41 | Outpatient (CLI) | payer MEDICARE, SELFPAY ==
--- NOTE | 2023-06-26 08:42 | CA_ITS ---
FINAL REPORT CLINICAL HISTORY: HTN,HLD,SMOKER COMPARISON: None FINDINGS: Aorta velocity: 87 cm/sec Right kidney: 12.5 cm. No evidence of hydronephrosis. Multiple cysts are present, the largest measuring 3.7 cm in size. Right intrarenal RI: 0.7 Right renal artery velocity: 127 cm/sec. Right RAR (Renal artery-Aortic Ratio): 1.45 Left Kidney: 12.8 cm. No evidence of hydronephrosis, with multiple cysts, the largest measuring 2.8 cm in diameter. Left intrarenal RI: 0.85 Left renal artery velocity: 151 cm/sec. Left RAR (Renal Artery-Aortic Ratio): 1.7 IMPRESSION: No evidence of significant renal artery stenosis. Multiple cysts are present in the kidneys bilaterally. CT angiogram or postcontrast MR angiogram would be more sensitive for evaluation of possible renal artery stenosis. Reviewed, Interpreted and Dictated by Markus Britt MD Transcribed by Emeli Madison Authenticated and [facility]
== END ==
PROVIDERS: PCP Nurse Practitioner Family; Visit Provider Physician Assistant
DX: I10 Essential (primary) hypertension (principal); Z72.0 Tobacco use
CPT/HCPCS: 93976

== ENCOUNTER 2023-07-17 09:36 | Outpatient (CLI) | payer MEDICARE, SELFPAY ==
[2023-07-18 03:56] LABS: Amphetamine/Metha Screen,Urine Negative ng/ml (<1000); Barbiturates Screen,Urine Negative ng/ml (<200); Benzodiazepines Screen,Urine Positive ng/ml (<200); Cannabinoid Screen,Urine Positive ng/ml (<50); Cocaine Screen,Urine Negative ng/ml (<300); Methadone Screen,Urine Negative ng/ml (<300); Opiate Screen,Urine Positive ng/ml (<300); Phencyclidine Screen,Urine Negative ng/ml (<25)
== END 2023-07-18 23:59 | disposition home or self-care (01) ==
PROVIDERS: PCP Nurse Practitioner Family; Visit Provider Nurse Practitioner Family
DX: Z79.899 Other long term (current) drug therapy (principal)
CPT/HCPCS: 80307

== ENCOUNTER 2023-08-12 11:33 | Outpatient (CLI) | payer MEDICARE, SELFPAY ==
--- NOTE | 2023-08-12 11:37 | XR_ITS ---
FINAL REPORT CLINICAL HISTORY: fall slipped on ice , hit left side of ribs on truck COMPARISON: Chest x-ray dated December 02, 2022 FINDINGS: 4 views of the left ribs were obtained. There is no acute fracture. The vague densities in the left perihilar region and right lung base. No pneumothorax is identified. IMPRESSION: No acute rib fracture. Bilateral pulmonary opacities. CT chest with contrast is recommended. Reviewed, Interpreted and Dictated by Kathryn Davis MD Transcribed by Librado Guerra Authenticated and . [facility]
== END 2023-08-12 23:59 ==
LOC: RAD 11:35
PROVIDERS: PCP Nurse Practitioner Family; Visit Provider Nurse Practitioner Family
DX: W19.XXXA Unspecified fall, initial encounter (principal); R07.81 Pleurodynia
CPT/HCPCS: 71101

== ENCOUNTER 2023-11-14 18:58 | Outpatient (CLI) | payer MEDICARE, SELFPAY ==
[2023-11-14 19:06] LABS: Microscopic, Urine URINE MICROSCOPIC (MICROSCOPIC)
[2023-11-14 19:25] LABS: Albumin Level 2.7 g/dl (3.5-5.0); Anion Gap 3.7 mEq/L (5-15); Blood Urea Nitrogen 5 mg/dl (9-20); Calcium 9.5 mg/dl (8.4-10.2); Carbon Dioxide 27 mmol/L (22.0-30.0); Chloride 111 mmol/L (98-107); Estimated Glomerular Filt Rate 111 ml/min (>60); GFR (African American) 134 ML/MIN (>60); Glucose 102 mg/dl (74-100); Phosphorous 3.6 mg/dl (2.5-4.5); Potassium 3.7 mmoL/L (3.5-5.1); Sodium 138 mmol/L (136-145)
[2023-11-14 19:26] LABS: Basophils # 0.1 K/mm3 (0-0.2); Basophils % 0.8 % (0.1-2.0); Eosinophils # 0.9 K/mm3 (0.0-0.4); Eosinophils % 12.7 % (0.1-12.0); Hematocrit 45.3 % (42.0-52.0); Hemoglobin 14.2 g/dL (14.1-18.0); Lymphocytes # 2.8 K/mm3 (0.7-4.5); Lymphocytes % 41.5 % (10-50); Mean Corpuscular HGB Conc 31.3 g/dL (31.8-35.4); Mean Corpuscular Hemoglobin 32.4 pg (27.0-31.2); Mean Corpuscular Volume 103.4 fl (80-94); Mean Platelet Volume 11.1 fl (7.4-10.4); Monocytes # 0.4 K/mm3 (0.1-1.0); Monocytes % 5.1 % (1.7-9.3); Neutrophils # 2.7 K/mm3 (1.8-7.8); Neutrophils % 39.9 % (37.0-80.0); Platelet Count 166 K/mm3 (142-424); Red Blood Count 4.38 M/mm3 (4.60-6.20); Red Cell Distribution Width 14.8 % (11.5-17.5); White Blood Count 6.8 K/mm3 (4.8-10.8)
[2023-11-14 19:27] LABS: Appearance,Urine CLEAR (Clear); Bilirubin,Urine Negative (Negative); Blood, Urine Negative (Negative); Color,Urine YELLOW (Yellow); Glucose,Urine (UA) Negative (Negative); Ketones,Urine Negative (Negative); Leukocyte Esterase,Urine Negative (Negative); Nitrate,Urine Negative (Negative); PH,Urine 5.5 (5.0-8.5); Protein,Urine Negative (Negative); Urobilinogen,Urine 0.2 EU/dl (0.2)
[2023-11-14 19:39] LABS: Bacteria,Urine Trace /lpf; Mucus,Urine Trace /lpf; Squamous Epithelial Cell,Urine Occasional #/hpf (0-5); WBC,Urine Occasional #/hpf (0-3); Yeast,Urine Occasional /lpf
[2023-11-14 19:44] LABS: 25-OH Vitamin D, Total 35.8 ng/mL (30-100)
[2023-11-18 15:10] LABS: Albumin, U 34.3 % (.); Alpha-1-Globulin, U 2.5 % (.); Alpha-2-Globulin, U 9.4 % (.); Gamma Globulin, U 22.8 % (.); M-Spike, % Not Observed % (Not Observed); Protein,Total,Urine 4.7 mg/dL (Not Estab.)
[2023-11-20 15:58] LABS: PDF: SCANNED IMAGE
== END 2023-11-14 23:59 | disposition home or self-care (01) ==
LOC: LAB.DROPOF 18:59
PROVIDERS: PCP Nurse Practitioner Family; Visit Provider Nurse Practitioner
DX: E55.9 Vitamin D deficiency, unspecified (principal); R53.83 Other fatigue; N28.1 Cyst of kidney, acquired; Z68.29 Body mass index [BMI] 29.0-29.9, adult
CPT/HCPCS: 80069; 81001; 82306; 84156; 84166; 85025

== ENCOUNTER 2023-11-17 09:39 | Outpatient (POV) | payer MEDICARE, SELFPAY | END 2023-11-17 23:59 | disposition home or self-care (01) | LOC: SC 09:39 | PROVIDERS: Visit Provider Nurse Practitioner | DX: Z00.00 Encounter for general adult medical examination without abnormal findings (principal) ==

== ENCOUNTER 2024-02-05 19:31 | Outpatient (CLI) | payer MEDICARE, SELFPAY ==
[2024-02-05 20:06] LABS: Basophils # 0.1 K/mm3 (0-0.2); Basophils % 0.9 % (0.1-2.0); Eosinophils # 0.8 K/mm3 (0.0-0.4); Eosinophils % 10.2 % (0.1-12.0); Hematocrit 48.2 % (42.0-52.0); Hemoglobin 15.2 g/dL (14.1-18.0); Lymphocytes # 2.5 K/mm3 (0.7-4.5); Lymphocytes % 33.7 % (10-50); Mean Corpuscular HGB Conc 31.5 g/dL (31.8-35.4); Mean Corpuscular Hemoglobin 33.9 pg (27.0-31.2); Mean Corpuscular Volume 107.4 fl (80-94); Mean Platelet Volume 12.1 fl (7.4-10.4); Monocytes # 0.5 K/mm3 (0.1-1.0); Neutrophils # 3.6 K/mm3 (1.8-7.8); Neutrophils % 49.2 % (37.0-80.0); Platelet Count 189 K/mm3 (142-424); Red Blood Count 4.49 M/mm3 (4.60-6.20); Red Cell Distribution Width 14.9 % (11.5-17.5); White Blood Count 7.4 K/mm3 (4.8-10.8)
[2024-02-05 20:33] LABS: Chol/HDL Ratio 3.4 (1-3.5); Cholesterol 121 mg/dl (140-200); HDL Cholesterol 36 mg/dl (40-60); Triglycerides 102 mg/dl (30-150); VLDL Cholesterol 20 mg/dL (0-40)
[2024-02-05 20:35] LABS: Alanine Aminotransferase 14 U/L (12-78); Albumin Level 2.8 g/dl (3.5-5.0); Alkaline Phosphatase 49 U/L (38-126); Anion Gap 5.7 mEq/L (5-15); Aspartate Amino Transferase 19 U/L (17-59); Bilirubin,Total 0.5 mg/dl (0.2-1.3); Blood Urea Nitrogen 8 mg/dl (9-20); Calcium 9.7 mg/dl (8.4-10.2); Carbon Dioxide 27 mmol/L (22.0-30.0); Chloride 110 mmol/L (98-107); Estimated Glomerular Filt Rate 111 ml/min (>60); GFR (African American) 134 ML/MIN (>60); Globulin 2.7 g/dL (1.3-3.2); Glucose 91 mg/dl (74-100); Potassium 3.7 mmoL/L (3.5-5.1); Sodium 139 mmol/L (136-145); Total Protein,Serum 5.5 g/dl (6.3-8.2)
[2024-02-05 20:45] LABS: Direct LDL Cholesterol 65.76 mg/dL (100-129)
[2024-02-05 20:50] LABS: Free T4 (Free Thyroxine) 1.72 ng/dl (0.78-2.19)
[2024-02-05 20:52] LABS: 25-OH Vitamin D, Total 47.9 ng/mL (30-100)
[2024-02-05 21:05] LABS: Prostate Specific Ag Screen 4.1 ng/ml (0.0-4.0); Thyroid Stimulating Hormone 2.44 uIU/mL (0.465-4.68)
[2024-02-12 10:40] LABS: Free Testosterone (Direct) 5.1 pg/mL (6.6-18.1); Testosterone, Total, LC/MS 542.2 ng/dL (264.0-916.0)
== END 2024-02-05 23:59 | disposition home or self-care (01) ==
LOC: LAB 19:36
PROVIDERS: Physician Assistant; PCP Nurse Practitioner Family; Visit Provider Nurse Practitioner Family
DX: E55.9 Vitamin D deficiency, unspecified (principal); R53.83 Other fatigue; I10 Essential (primary) hypertension; K59.00 Constipation, unspecified; Z12.5 Encounter for screening for malignant neoplasm of prostate; E78.5 Hyperlipidemia, unspecified; F17.210 Nicotine dependence, cigarettes, uncomplicated
CPT/HCPCS: 80050; 80053; 80061; 82306; 84439; 84443; 85025; G0103

== ENCOUNTER 2024-03-26 11:38 | Outpatient (POV) | payer MEDICARE, SELFPAY | END 2024-03-26 23:59 | disposition home or self-care (01) | LOC: SC 11:38 | PROVIDERS: Visit Provider Nurse Practitioner | DX: Z00.00 Encounter for general adult medical examination without abnormal findings (principal) ==

== ENCOUNTER 2024-04-18 12:30 | Emergency (ER) | payer MEDICARE, SELFPAY ==
--- NOTE | 2024-04-18 12:27 | ECG_ITS ---
APPROVED REPORT Exam: Resting ECG HR:100 bpm ECG Measurements Heart Rate 100 AXES QRSd 118 QRS -70 QT 361 T 68 QTc 418 Conclusion ATRIAL FIBRILLATION WITH RAPID VENTRICULAR RESPONSE INCOMPLETE RIGHT BUNDLE BRANCH BLOCK [90+ ms QRS DURATION, TERMINAL R IN V1/V2, 40+ ms S IN I/aVL/V4/V5/V6] LEFT ANTERIOR FASCICULAR BLOCK [QRS AXIS <= -45, QR IN I, RS IN II] POSSIBLE LATERAL MYOCARDIAL INFARCTION , OF INDETERMINATE AGE [30 ms Q WAVE IN I/aVL/V5/V6] ABNORMAL ECG Electronically signed by : DIMA PARRISH, 04/18/2024 16:29:23
[2024-04-18 12:31] VITALS: BP 155/112; PULSE 72; RESP 20; TEMP 36.8; O2SAT 95; BMI 27.8
--- NOTE | 2024-04-18 13:20 | XR_ITS ---
PROCEDURE INFORMATION: Exam: XR Chest Exam date and time: 04/18/2024 1:29 PM Age: 73 years old Clinical indication: Other: A-fib; Additional info: Chest pain TECHNIQUE: Imaging protocol: Radiologic exam of the chest. Views: 1 view. COMPARISON: CR XR RIBS LT MIN 3V W CXR1V 08/12/2023 11:43 AM FINDINGS: Lungs: Bilateral multilobar airspace disease. Pleural spaces: Unremarkable. No pleural effusion. No pneumothorax. Heart/Mediastinum: Unremarkable. No cardiomegaly. Bones/joints: Unremarkable. IMPRESSION: Bilateral multilobar airspace disease, concerning for pneumonia.
--- NOTE | 2024-04-18 13:23 | ED_ITS ---
Discharge Plan Disposition Chief Complaint: Arrhythmia/Palpitations Prescriptions Prescriptions: No Action alprazolam 1 mg tablet 1 mg PO BID Qty: 45 2RF Rx Instructions: Monthly gabapentin 400 mg capsule 400 mg PO TID Qty: 90 2RF cholecalciferol (vitamin D3) 2,000 unit capsule 2,000 unit PO DAILY lisinopril 20 mg tablet 20 mg PO BID Qty: 180 3RF pantoprazole [Protonix] 40 mg tablet,delayed release (DR/EC) 40 mg PO DAILY Qty: 90 3RF Xarelto 20 mg tablet 20 mg PO DAILY Qty: 90 3RF Rx Instructions: must administer with evening meal sotalol 120 mg tablet 120 mg PO Q12H Qty: 180 2RF sennosides-docusate sodium 8.6-50 mg capsule 1 tab-cap PO BID PRN (Reason: constipation) 90 Days Qty: 120 3RF ascorbic acid (vitamin C) 500 mg capsule, extended release 500 mg PO DAILY metoprolol tartrate 25 mg tablet 25 mg PO .prn Qty: 20 0RF Rx Instructions: pt is to take only on onset of atrial Fib and q8hs for 24 hours hydrocodone-acetaminophen 7.5-325 mg tablet 1 tab PO Q6H PRN (Reason: pain) 30 Days Qty: 120 0RF simvastatin 40 mg tablet See Rx Instructions .ROUTE .COMPLEX Qty: 90 3RF Dose Instruction: TAKE 1 TABLET EVERY DAY FOR CHOLESTEROL Rx Instructions: TAKE 1 TABLET EVERY DAY FOR CHOLESTEROL aspirin [Children's Aspirin] 81 mg Tablet,Chewable 81 mg PO DAILY Qty: 30 3RF Referrals Follow up/Referrals: Tone Cuenca APRN [Primary Care Provider] - See instructions Michael Gardner MD [Staff Physician] - See instructions Activity Restrictions/Add. Instructions Additional Instructions/Restrictions: You were evaluated in the emergency department today. Please follow-up closely with your primary care provider as well as with your vp software support. Continue taking your medications at home as prescribed. Return to the emergency department for new or worsening symptoms. Clinical Impressions Clinical Impression: PAF (paroxysmal atrial fibrillation), CHF (congestive heart failure) Instructions Patient Instructions: DI for Heart Failure, DI for Atrial Fibrillation, DI for Moderate Sedation, Moderate Sedation Print Language Print Language: Danish Discharge ED Provider: Kelly Anderson General Adult HPI <Kelly Anderson DO - Last Filed: 04/18/24 15:21> General Chief complaint: Arrhythmia/Palpitations Stated complaint: Chest Pain Time Seen by Provider: 04/18/24 12:34 Mode of Arrival: Ambulatory Source of Information: Patient Limitations: No Limitations Description of Symptoms (Recalled from ER Triage Doc. by RN): pt came in today for afib after taking 3 doses of metoprolol, pt takes xarelto daily and sees dr gardner for cardiology, pt is alox3 and is soa from afib History of Present Illness HPI narrative: This patient is a 73-year-old male with a history of atrial fibrillation on metoprolol and Xarelto, prior PE, hypertension, hyperlipidemia, and smoking history presenting to the emergency department for evaluation with concern for palpitations. Patient states that he woke up yesterday morning Nevan that his A-fib was bothering him, as it typically wakes him up from sleep. He states that is having some midsternal chest pain and palpitations. He tried taking his metoprolol at home x 3 with no improvement. He states that he is required cardioversion in the past for this, the last time was about 3 years ago at [facility]. No other recent concerns. Related Data Home Medications ?Medication ?Instructions ?Recorded ?Confirmed cholecalciferol (vitamin D3) 50 2,000 unit PO DAILY Supplement 12/22/17 01/19/24 mcg (2,000 unit) capsule ascorbic acid (vitamin C) 500 mg 500 mg PO DAILY 11/17/23 01/19/24 capsule,extended release Previous Rx's ?Medication ?Instructions ?Recorded aspirin 81 mg chewable tablet 81 mg PO DAILY #30 tabs 03/06/23 (Children's Aspirin) lisinopril 20 mg tablet 20 mg PO BID bp #180 tabs 06/19/23 pantoprazole 40 mg tablet,delayed 40 mg PO DAILY #90 tabs 06/19/23 release (Protonix) rivaroxaban 20 mg tablet (Xarelto) 20 mg PO DAILY afib #90 tabs 08/18/23 sotalol 120 mg tablet 120 mg PO Q12H atrial fib #180 tabs 08/25/23 sennosides 8.6 mg-docusate sodium 1 tab-cap PO BID PRN constipation 09/15/23 50 mg capsule 90 days #120 caps metoprolol tartrate 25 mg tablet 25 mg PO .prn atrial fib #20 tabs 12/01/23 alprazolam 1 mg tablet 1 mg PO BID nerves #45 tabs 01/14/24 gabapentin 400 mg capsule 400 mg PO TID Pain #90 caps 01/14/24 hydrocodone 7.5 mg-acetaminophen 1 tab PO Q6H PRN pain 30 days #120 03/17/24 325 mg tablet tabs simvastatin 40 mg tablet See Rx Instructions .Route 04/05/24 .COMPLEX #90 tabs Allergies Allergy/AdvReac Type Severity Reaction Status Date / Time amoxicillin Allergy Intermediate rash Verified 01/19/24 09:15 Penicillins Allergy Intermediate Hives Verified 01/19/24 09:15 prasugrel [From Effient] AdvReac Intermediate Dizziness Verified 01/19/24 09:15 and burning in chest clopidogrel [From Plavix] AdvReac burning in Verified 01/19/24 09:15 chest PFSH <Kelly Anderson DO - Last Filed: 04/18/24 15:21> [facility] Disclaimer: The information contained in this section may have been updated after the patient was seen, as this information can be updated by other users. Medical History Renal cyst Paroxysmal atrial fibrillation Bradycardia Chest pain History of peripheral vascular disease History of pulmonary embolus (PE) A-fib HLD (hyperlipidemia) HTN (hypertension) Smoking greater than 30 pack years Mediastinal lymphadenopathy Multiple lung nodules on CT Nodule of right lung Atypical pneumonia Back pain with history of spinal surgery Surgical History History of lung biopsy S/P peripheral artery angioplasty with stent placement History of cardiac cath History of back surgery History of colonoscopy Family History Other Asthma COPD (chronic obstructive pulmonary disease) Family history of atrial fibrillation Hypertension Social History Smoking Status: Current every day smoker tobacco type: cigarettes packs per day: 1 alcohol intake: never substance use type: denies use, marijuana and prescription drug current occupational status: retired Travel in the last 8 weeks: None household members: spouse housing: house caffeine: Yes Other Medical History Have you received the Flu Vaccine for this season: No Have you received the Pneumonia Vaccine: Yes <Kelly Anderson - Last Filed: 04/18/24 15:21> ROS Obtained: Yes All systems reviewed & no additional complaints except as documented Physical Exam <Kelly Anderson DO - Last Filed: 04/18/24 15:21> General General appearance: alert and in no apparent distress Head Head exam: atraumatic and normocephalic Eye Eye exam: Present normal appearance, PERRL and EOMI ENT ENT exam: Present normal exam, normal oropharynx, mucous membranes moist and normal external ear exam Neck Neck exam: Present normal inspection, full ROM and trachea midline; Absent tenderness Chest Chest inspection: Present normal inspection and symmetric chest wall rise; Absent tenderness Respiratory Respiratory exam: Present normal lung sounds bilaterally; Absent respiratory distress, wheezes, stridor or accessory muscle use Cardiovascular Cardiovascular exam: Present tachycardia and irregular rhythm Abdominal Exam Abdominal exam: Present soft; Absent distention, tenderness or guarding Extremities Exam Extremities exam: Present normal inspection, full ROM and normal capillary refill; Absent tenderness or edema Back Exam Back exam: Present normal inspection and full ROM; Absent tenderness Neurological Exam Neurological exam: Present alert, oriented X3, CN II-XII intact and normal gait; Absent motor sensory deficit Psychiatric Psychiatric exam: Present normal affect and normal mood Skin Skin exam: Present warm and dry Medical Decision Making <Kelly AndersonDO - Last Filed: 04/18/24 15:21> Medical Records Medical records reviewed: Yes I reviewed the patient's medical records. Screening: Per USPSTF and CDC recommendations, given the prevalence of disease in our region, it is our hospital?s policy to screen for HIV and viral Hepatitis for all patients aged 18 and over and those with ongoing risk factors. Jaya Inquiry Pt receiving controlled substance: No Vital Signs: 04/18/24 12:31 Temperature 98.2 F Temperature Source Oral Pulse Rate [Right Radial] 72 Respiratory Rate 20 Blood Pressure [Right Arm] 155/112 H Blood Pressure Mean [Right Arm] 126 02 Sat by Pulse Oximetry 95 Oxygen Delivery Method Room Air Lab Data Lab results reviewed: Yes I reviewed the patient's lab results. Lab Results 04/18/24 12:27: WBC 8.8, RBC 5.16, Hgb 17.5, Hct 53.0 H, MCV 102.8 H, MCH 33.9 H , MCHC 33.0, RDW 13.9, Plt Count 241, MPV 9.8, Neut % (Auto) 51.4, Lymph % (Auto) 29.9, Zavala % (Auto) 7.2, Eos % (Auto) 10.4, Baso % (Auto) 1.0, Neut # (Auto) 4.5, Lymph # (Auto) 2.6, Zavala # (Auto) 0.6, Eos # (Auto) 0.9 H, Baso # (Auto) 0.1, PT 11.2, INR 1.00, APTT 33.0 H, D-Dimer 0.48, Sodium 139, Potassium 4.2, Chloride 103, Carbon Dioxide 32 H, Anion Gap 8.2, BUN 6 L, Creatinine 0.90, Estimated Creat Clear 101, Estimated GFR 83, Est GFR ( Amer) 100, Glucose 121 H, Calcium 10.5 H, Phosphorus 2.1 L, Magnesium 1.8, Total Bilirubin 0.9, AST 29, ALT 19, Alkaline Phosphatase 48, Troponin I < 0.01, NT-Pro-B Natriuret Pep 3290 H, Total Protein 7.0 D, Albumin 3.6, Globulin 3.4 H, Albumin/Globulin Ratio 1.1, TSH 2.20, Thyroxine (T4) 9.8 04/18/24 12:27 04/18/24 12:27 Orders (Tests/Meds): ED MEDICATIONS Discontinued Medications Generic Name Dose Route Start Last Admin Trade Name Freq PRN Reason Stop Dose Admin Diltiazem HCl 15 mg 04/18/24 13:33 04/18/24 13:54 Diltiazem 25mg/5ml Vial IV 04/18/24 13:34 15 mg ONCE ONE Administration Etomidate 10 mg 04/18/24 14:36 04/18/24 14:44 Etomidate 40mg/20ml Vial IV 04/18/24 14:37 10 mg ONCE ONE Administration Diltiazem HCl 100 mg/ Sodium 100 mls @ 10 mls/hr 04/18/24 14:19 Chloride IV 05/18/24 14:18 .Q10H ZEYAD Protocol 10 MG/HR ORDERS Category Date Time Status CXR --portable [XR chest portable] Stat Exams 04/18/24 13:20 Completed POCUS Point of Care (ER Only) Stat Exams 04/18/24 15:12 Ordered BNP [NT Pro Brain Natriuretic Pep.] Stat Lab 04/18/24 12:27 Completed CBC w/Auto Diff [Complete Blood Count Auto Diff] Stat Lab 04/18/24 12:27 Completed CMP [Comprehensive Metabolic Panel] Stat Lab 04/18/24 12:27 Completed D-Dimer Stat Lab 04/18/24 12:27 Completed Magnesium Stat Lab 04/18/24 12:27 Completed PT INR [Prothrombin Time INR] Stat Lab 04/18/24 12:27 Completed PTT [Activated Partial Thrombo Time] Stat Lab 04/18/24 12:27 Completed Phosphorous Stat Lab 04/18/24 12:27 Completed T4 (Thyroxine) Stat Lab 04/18/24 12:27 Completed TSH [Thyroid Stimulating Hormone] Stat Lab 04/18/24 12:27 Completed Trop I [Troponin I] Stat Lab 04/18/24 12:27 Completed Troponin I Q3H Lab 04/18/24 16:30 Ordered Troponin I Q3H Lab 04/18/24 19:30 Ordered ECG Data Tracing #1: I reviewed this ECG and interpreted as documented below: Atrial fibrillation with rapid ventricular response with a ventricular rate of 100 bpm. Incomplete right bundle branch block noted. No acute ST changes concerning for ischemia. ECG initial impression date: 04/18/24 ECG initial impression time: 12:29 Tracing #2: I reviewed this ECG and interpreted as documented below: Post cardioversion. Sinus bradycardia with a ventricular rate of 53 bpm. Left anterior fascicular block noted. No acute ischemic changes ECG initial impression date: 04/18/24 ECG initial impression time: 14:52 Medical Decision Narrative: In summary, this patient is a 73-year-old male presenting to the Emergency Department for evaluation of palpitations and chest pain. Differential diagnoses considered include but are not limited to A-fib with RVR, dysrhythmia, ACS, electrolyte derangements, PE, costochondritis. Ruling out the most morbid conditions drove assessment. It should be noted patient's history includes atrial fibrillation which is not at goal therapy. This complicates all aspects of care by increasing patient's risk for morbidity. I reviewed patient's past medical records and noted evaluations for atrial fibrillation in the past by cardiology. It looks like on most recent EKG there in January he was in normal sinus rhythm. On exam, the patient is lying in bed in no acute distress. He is tachycardic with irregularly irregular rhythm. Initial heart rate in the 120s to 130s. He is already appropriately anticoagulated with Xarelto. He is on metoprolol at home. Workup included CBC, CMP, troponin, BNP, D-dimer, magnesium, phosphorus, coags, chest x-ray, EKG. I independently interpreted chest x-ray prior to the radiologist read and noted multifocal airspace opacity. Please see their read for final interpretation. Clinically, he does not have pneumonia. Labs were obtained that demonstrated elevated BNP, mild hypophosphatemia. No other acutely concerning abnormality. Elevated BNP and CXR concern me for heart failure. Patient was given IV diltiazem push with some improvement in his heart rate, however he remains in atrial fibrillation with a rate bouncing between the 80s to low 100s. After shared decision-making with the patient I advised that since he is not all the way he is in atrial fibrillation and typically requires cardioversion back to normal sinus rhythm, we could proceed with attempted synchronized cardioversion at this time. He states that this is what has worked for him in the past. After risk versus benefit was explained, he elects to proceed with this on a nonemergent basis in the setting of hemodynamic stability. Informed consent was signed. Patient underwent procedural sedation for cardioversion, which he tolerated very well. He returned to sinus bradycardia with a ventricular rate in the 50s, which states is baseline for him. He remained hemodynamically stable with no complications. Please see procedure notes for further documentation. Patient is undergoing continued monitoring at this time and will ensure he returns to his preprocedure baseline. Patient care signed out to the oncoming provider, Dr. Dias, who is performing bedside echo to see if patient's EF is around his most recent baseline after cardioversion. <Francisca Dias MD - Last Filed: 04/18/24 15:28> Vital Signs: 04/18/24 12:31 Temperature 98.2 F Temperature Source Oral Pulse Rate [Right Radial] 72 Respiratory Rate 20 Blood Pressure [Right Arm] 155/112 H Blood Pressure Mean [Right Arm] 126 02 Sat by Pulse Oximetry 95 Oxygen Delivery Method Room Air Lab Data Lab Results 04/18/24 12:27: WBC 8.8, RBC 5.16, Hgb 17.5, Hct 53.0 H, MCV 102.8 H, MCH 33.9 H , MCHC 33.0, RDW 13.9, Plt Count 241, MPV 9.8, Neut % (Auto) 51.4, Lymph % (Auto) 29.9, Zavala % (Auto) 7.2, Eos % (Auto) 10.4, Baso % (Auto) 1.0, Neut # (Auto) 4.5, Lymph # (Auto) 2.6, Zavala # (Auto) 0.6, Eos # (Auto) 0.9 H, Baso # (Auto) 0.1, PT 11.2, INR 1.00, APTT 33.0 H, D-Dimer 0.48, Sodium 139, Potassium 4.2, Chloride 103, Carbon Dioxide 32 H, Anion Gap 8.2, BUN 6 L, Creatinine 0.90, Estimated Creat Clear 101, Estimated GFR 83, Est GFR ( Amer) 100, Glucose 121 H, Calcium 10.5 H, Phosphorus 2.1 L, Magnesium 1.8, Total Bilirubin 0.9, AST 29, ALT 19, Alkaline Phosphatase 48, Troponin I < 0.01, NT-Pro-B Natriuret Pep 3290 H, Total Protein 7.0 D, Albumin 3.6, Globulin 3.4 H, Albumin/Globulin Ratio 1.1, TSH 2.20, Thyroxine (T4) 9.8 Orders (Tests/Meds): ED MEDICATIONS Discontinued Medications Generic Name Dose Route Start Last Admin Trade Name Freq PRN Reason Stop Dose Admin Diltiazem HCl 15 mg 04/18/24 13:33 04/18/24 13:54 Diltiazem 25mg/5ml Vial IV 04/18/24 13:34 15 mg ONCE ONE Administration Etomidate 10 mg 04/18/24 14:36 04/18/24 14:44 Etomidate 40mg/20ml Vial IV 04/18/24 14:37 10 mg ONCE ONE Administration Diltiazem HCl 100 mg/ Sodium 100 mls @ 10 mls/hr 04/18/24 14:19 Chloride IV 05/18/24 14:18 .Q10H ZEYAD Protocol 10 MG/HR ORDERS Category Date Time Status CXR --portable [XR chest portable] Stat Exams 04/18/24 13:20 Completed POCUS Point of Care (ER Only) Stat Exams 04/18/24 15:12 Ordered BNP [NT Pro Brain Natriuretic Pep.] Stat Lab 04/18/24 12:27 Completed CBC w/Auto Diff [Complete Blood Count Auto Diff] Stat Lab 04/18/24 12:27 Completed CMP [Comprehensive Metabolic Panel] Stat Lab 04/18/24 12:27 Completed D-Dimer Stat Lab 04/18/24 12:27 Completed Magnesium Stat Lab 04/18/24 12:27 Completed PT INR [Prothrombin Time INR] Stat Lab 04/18/24 12:27 Completed PTT [Activated Partial Thrombo Time] Stat Lab 04/18/24 12:27 Completed Phosphorous Stat Lab 04/18/24 12:27 Completed T4 (Thyroxine) Stat Lab 04/18/24 12:27 Completed TSH [Thyroid Stimulating Hormone] Stat Lab 04/18/24 12:27 Completed Trop I [Troponin I] Stat Lab 04/18/24 12:27 Completed Troponin I Q3H Lab 04/18/24 16:30 Ordered Troponin I Q3H Lab 04/18/24 19:30 Ordered Medical Decision Narrative: In summary, this patient is a 73-year-old male presenting to the Emergency Department for evaluation of palpitations and chest pain. Differential diagnoses considered include but are not limited to A-fib with RVR, dysrhythmia, ACS, electrolyte derangements, PE, costochondritis. Ruling out the most morbid conditions drove assessment. It should be noted patient's history includes atrial fibrillation which is not at goal therapy. This complicates all aspects of care by increasing patient's risk for morbidity. I reviewed patient's past medical records and noted evaluations for atrial fibrillation in the past by cardiology. It looks like on most recent EKG there in January he was in normal sinus rhythm. On exam, the patient is lying in bed in no acute distress. He is tachycardic with irregularly irregular rhythm. Initial heart rate in the 120s to 130s. He is already appropriately anticoagulated with Xarelto. He is on metoprolol at home. Workup included CBC, CMP, troponin, BNP, D-dimer, magnesium, phosphorus, coags, chest x-ray, EKG. I independently interpreted chest x-ray prior to the radiologist read and noted multifocal airspace opacity. Please see their read for final interpretation. Clinically, he does not have pneumonia. Labs were obtained that demonstrated elevated BNP, mild hypophosphatemia. No other acutely concerning abnormality. Elevated BNP and CXR concern me for heart failure. Patient was given IV diltiazem push with some improvement in his heart rate, however he remains in atrial fibrillation with a rate bouncing between the 80s to low 100s. After shared decision-making with the patient I advised that since he is not all the way he is in atrial fibrillation and typically requires cardioversion back to normal sinus rhythm, we could proceed with attempted synchronized cardioversion at this time. He states that this is what has worked for him in the past. After risk versus benefit was explained, he elects to proceed with this on a nonemergent basis in the setting of hemodynamic stability. Informed consent was signed. Patient underwent procedural sedation for cardioversion, which he tolerated very well. He returned to sinus bradycardia with a ventricular rate in the 50s, which states is baseline for him. He remained hemodynamically stable with no complications. Please see procedure notes for further documentation. Patient is undergoing continued monitoring at this time and will ensure he returns to his preprocedure baseline. Patient care signed out to the oncoming provider, Dr. Dias, who is performing bedside echo to see if patient's EF is around his most recent baseline after cardioversion. This is Dr. Dias I took over from Dr. Anderson at 3:00 PM I personally evaluated the patient and looked at her chest x-ray with Dr. Anderson there are multifocal infiltrates but patient has no signs or symptoms or clinical evidence of pneumonia most likely this is secondary to heart failure I did a bedside echo and lung ultrasound which demonstrated mild to moderately depressed EF with some septal hypokinesis and some scant B-lines I wanted to do a CT scan to further differentiate this however the patient refused to stay I am comfortable at this point not treating him as if he has pneumonia he has told me that he would closely follow-up with cardiology outpatient and he was discharged in stable condition. Procedures <Kelly Anderson, DO - Last Filed: 04/18/24 15:21> Risk/Benefits of Procedure(s) Were Explained: Yes Procedural Sedation Presedation Evaluation: Lying in bed in no acute distress. Atrial fibrillation with a ventricular rate of 80-110 bpm on assessment but hemodynamically stable with pressure 128/89 on assessment. A heart and lung assessment was performed on this patient at: 14:34 Mallampati Score:: Class II Indication: other (Synchronized cardioversion for atrial fibrillation with rapid ventricular response) ASA Class: II Preparation: secured entrance monitor applied, pulse oximeter, capnometry used, supplemental O2 applied, reversal agents at bedside, suction/airway equipment at bedside and IV secured IV Etomidate dose (mg): 10 Patient Tolerated Procedure: well and no complications Complications: none Miscellaneous Procedure Procedure Performed: Cardioversion: Consent for operation or procedure: Risks and benefits discussed with patient and consent obtained Anesthesia: etomidate The appropriate time-out procedure was performed including proper identification of the patient, physician, procedure, documentation, and there were no safety issues identified. The patient participated actively in this. After sedation was achieved, the patient was placed in the supine position and hands free patches were placed on his chest in the AP position. 1 shock was provided at, 150 Joules with successful resumption of normal sinus rhythm. This was confirmed on EKG. Repeat EKG confirms return to sinus rhythm. Complications: The patient tolerated the procedure well without complications. <Francisca Dias MD - Last Filed: 04/18/24 15:28> Miscellaneous Procedure Procedure Performed: Cardioversion: Consent for operation or procedure: Risks and benefits discussed with patient and consent obtained Anesthesia: etomidate The appropriate time-out procedure was performed including proper identification of the patient, physician, procedure, documentation, and there were no safety issues identified. The patient participated actively in this. After sedation was achieved, the patient was placed in the supine position and hands free patches were placed on his chest in the AP position. 1 shock was provided at, 150 Joules with successful resumption of normal sinus rhythm. This was confirmed on EKG. Repeat EKG confirms return to sinus rhythm. Complications: The patient tolerated the procedure well without complications. Limited cardiac ultrasound Indication: Dyspnea Identified structures: The heart was visualized in the parasternal long axis, parastenal short axis, apical four chamber and subxyphiod views. The IVC was visualized in the short axis and long axis at its entry into the right atrium. Findings: Septal hypokinesis mild to moderate depression and EF no evidence of severe right heart strain or pericardial effusion IVC is less than 2 cm with normal respiratory variation Impression: Septal hypokinesis and mild to moderate depression and EF Images were saved to permanent archive The study was technically adequate CPT: 13708-62 This study was performed by me, and I personally interpreted all images/videos. Based on my clinical judgement, these images were adequate and did not necessitate further imaging. Limited lung ultrasound A focused ultrasound exam of the pleural spaces was performed to evaluate for pneumothorax, pulmonary edema, pleural effusion and/or consolidation. The ultrasound was performed with the following indications, as noted in the H&P: Dyspnea and follow-up from abnormal chest x-ray Identified structures: Right and left thoracic cavities were examined. Findings: Bilateral lung sliding was present there was some scant B-lines throughout but nothing significant no pleural effusions or evidence of pneumothorax Impression: Essentially unremarkable bilateral limited lung ultrasound Images were saved to permanent archive The study was technically adequate CPT 31623-29 This study was performed by me, and I personally interpreted all images/videos. Based on my clinical judgement, these images were adequate and did not necessitate further imaging. Critical Care <Kelly Anderson, DO - Last Filed: 04/18/24 15:21> Critical Care Time Critical Care Time: Yes Attestation: On 04/18/24, the high probability of a clinically significant, sudden or life threatening deterioration of the following system(s) required my full and direct attention, intervention and personal management. The time I documented below is in addition to time spent performing reported procedures but includes the following listed in this critical care notation. Total Time Total Critical Care Time: 40
[2024-04-18 13:33] LABS: Albumin Level 3.6 g/dl (3.5-5.0); Basophils # 0.1 K/mm3 (0-0.2); Chloride 103 mmol/L (98-107); Eosinophils # 0.9 K/mm3 (0.0-0.4); Eosinophils % 10.4 % (0.1-12.0); Hemoglobin 17.5 g/dL (14.1-18.0); Lymphocytes # 2.6 K/mm3 (0.7-4.5); Lymphocytes % 29.9 % (10-50); Mean Corpuscular Hemoglobin 33.9 pg (27.0-31.2); Mean Corpuscular Volume 102.8 fl (80-94); Mean Platelet Volume 9.8 fl (7.4-10.4); Monocytes # 0.6 K/mm3 (0.1-1.0); Monocytes % 7.2 % (1.7-9.3); Neutrophils # 4.5 K/mm3 (1.8-7.8); Neutrophils % 51.4 % (37.0-80.0); Platelet Count 241 K/mm3 (142-424); Potassium 4.2 mmoL/L (3.5-5.1); Red Blood Count 5.16 M/mm3 (4.60-6.20); Red Cell Distribution Width 13.9 % (11.5-17.5); Sodium 139 mmol/L (136-145); White Blood Count 8.8 K/mm3 (4.8-10.8)
[2024-04-18 13:36] LABS: Alanine Aminotransferase 19 U/L (12-78); Albumin/Globulin Ratio 1.1 (1.1-1.8); Alkaline Phosphatase 48 U/L (38-126); Anion Gap 8.2 mEq/L (5-15); Aspartate Amino Transferase 29 U/L (17-59); Bilirubin,Total 0.9 mg/dl (0.2-1.3); Blood Urea Nitrogen 6 mg/dl (9-20); Carbon Dioxide 32 mmol/L (22.0-30.0); Creatinine Clearance Estimated 101 mL/min (50-200); Estimated Glomerular Filt Rate 83 ml/min (>60); GFR (African American) 100 ML/MIN (>60); Globulin 3.4 g/dL (1.3-3.2); Magnesium 1.8 mg/dl (1.6-2.3); Phosphorous 2.1 mg/dl (2.5-4.5)
[2024-04-18 13:37] LABS: Calcium 10.5 mg/dl (8.4-10.2); Glucose 121 mg/dl (74-100)
[2024-04-18 13:40] LABS: Prothrombin Time 11.2 seconds (10.1-12.5)
[2024-04-18 13:46] LABS: NT Pro Brain Natriuretic Pep. 3290 pg/mL (0-125)
[2024-04-18 13:51] LABS: D-Dimer 0.48 ug/mL (0.0-0.5)
[2024-04-18 13:53] LABS: T4 (Thyroxine) 9.8 ug/dl (5.53-11.0); Troponin I < 0.01 ng/ml (0.00-0.034)
[2024-04-18] MEDS: dilTIAZem 25MG/5ML VIAL 15 MG IV (13:54)
--- NOTE | 2024-04-18 14:20 | PC.NURSE ---
DR PARRISH AT BEDSIDE
[2024-04-18 14:44] VITALS: BP 142/85; PULSE 77; RESP 18; O2SAT 97
[2024-04-18] MEDS: ETOMIDATE 40MG/20ML VIAL 10 MG IV (14:44)
[2024-04-18 14:47] VITALS: BP 163/125; PULSE 59; RESP 16; O2SAT 95
[2024-04-18 14:51] VITALS: BP 159/105; PULSE 54; RESP 18; O2SAT 98
--- NOTE | 2024-04-18 14:51 | ECG_ITS ---
APPROVED REPORT Exam: Resting ECG HR:53 bpm ECG Measurements Heart Rate 53 AXES OH 160 P 55 QRSd 118 QRS -68 QT 434 T 56 QTc 417 Conclusion SINUS BRADYCARDIA LEFT ANTERIOR FASCICULAR BLOCK [QRS AXIS <= -45, QR IN I, RS IN II] ABNORMAL ECG Electronically signed by : DIMA PARRISH, 04/18/2024 16:28:26
[2024-04-18 15:40] VITALS: BP 142/85; PULSE 77; RESP 18; TEMP 36.7; O2SAT 97
== END 2024-04-18 15:41 | disposition home or self-care (01) ==
PROVIDERS: Emergency Provider Emergency Medicine; PCP Nurse Practitioner Family
DX: R00.2 Palpitations (principal); R07.9 Chest pain, unspecified; I50.9 Heart failure, unspecified; I48.0 Paroxysmal atrial fibrillation
CPT/HCPCS: 71045; 80053; 83735; 83880; 84100; 84436; 84443; 84484; 85025; 85378; 85610; 85730; 93005; 99285

== ENCOUNTER 2024-09-17 13:51 | Outpatient (CLI) | payer MEDICARE, SELFPAY ==
--- NOTE | 2024-09-17 13:58 | XR_ITS ---
FINAL REPORT CLINICAL HISTORY: pain FINDINGS: SPINE LUMBOSACRAL INCL BENDING VIEWS Five views of the lumbar spine were obtained. There is moderate diffuse degenerative disc disease. There is fusion of L5-S1. Mild wedge compression deformity is seen involving L1, new since prior MRI dated 2021. There is no malalignment. IMPRESSION: Age-indeterminate L1 compression fracture. Moderate to severe degenerative disc disease. Reviewed, Interpreted and Dictated by Kathryn Davis MD Transcribed by Alejandra Montes Authenticated and [facility]
== END 2024-09-17 23:59 | disposition home or self-care (01) ==
LOC: RAD 13:51
PROVIDERS: PCP Nurse Practitioner Family; Visit Provider Nurse Practitioner Family
DX: R52 Pain, unspecified (principal)
CPT/HCPCS: 72110

== ENCOUNTER 2024-09-21 11:52 | Outpatient (CLI) | payer MEDICARE, SELFPAY ==
--- NOTE | 2024-09-21 11:52 | NM_ITS ---
APPROVED REPORT Exam: Nuclear Stress Test Indication: palpiatations..syncope..fatigue Patient Location: Outpatient Stress Tech: Kellie Del Valle NM Tech:Gin Nance, ARRT, RT (R)(N) Ht: 6 ft 5 in Wt: 240 lbs HR: 44 bpm BP: 139/70 mmHg BSA: 2.42 m2 TID: 1.25 BMI: 28.4 History: palpiatations..syncope..fatigue Procedure: Patient received 0.4 mg of intravenous Lexiscan, resting heart rate 44 bpm, resting blood pressure 139/70 mmHg, with Lexiscan maximum heart rate achieved was 63 bpm which is 85 % of the maximum predicted heart rate and blood pressure was 157/88 mmHg. With Lexiscan, patient denied any complaint of chest pain. The patient was not able to lay on his abdomen for prone images Cardiac Stress and Resting SPECT Images: Cardiac Stress and Resting SPECT images were obtained using technetium 99m Myoview 30.3 mCi stress and 10.52 mCi at rest. The patient is unable to lie on his abdomen. Therefore, prone stress imaging could not be performed. This may affect the diagnostic interpretation of the study findings. Resting and stress imaging in supine positions demonstrate a medium sized, moderate, reversible perfusion defect in the basal to mid inferior LV stokes. There is increase in transient ischemic dilatation ratio (TID 1.25), suggestive of possible multivessel disease or balanced ischemia. Gated imaging demonstrates low-normal global LV systolic function. LVEF is calculated at 53%. Of note, the right ventricle appears dilated. Correlation with new or recent TTE is suggested. Conclusion: Medium sized, moderate, reversible perfusion defect in the basal to mid inferior LV stokes. Findings are suggestive of reversible ischemia. There is increase in transient ischemic dilatation ratio (TID 1.25), suggestive of possible multivessel disease or balanced ischemia. Gated imaging demonstrates low-normal global LV systolic function. LVEF is calculated at 53%. Of note, the right ventricle appears dilated. Correlation with new or recent TTE is suggested. Electronically signed by : Katelyn Ruvalcaba MD 09/22/2024 12:52:02
[2024-09-21] MEDS: SODIUM CHLORIDE 0.9% 10ML SYR (RAD ONLY) 10 ML IV ×2 (13:44)
[2024-09-21] MEDS: REGADENOSON 0.4MG/5ML SYRINGE 0.4 MG IV (13:44)
[2024-09-21] MEDS: ISOTOPE MYOVIEW (PER STUDY) 1 DOSE IV (13:44)
== END 2024-09-21 23:59 | disposition home or self-care (01) ==
LOC: RAD 11:52
PROVIDERS: PCP Nurse Practitioner Family; Visit Provider Physician Assistant
DX: I25.10 Atherosclerotic heart disease of native coronary artery without angina pectoris (principal); I48.0 Paroxysmal atrial fibrillation; Z95.5 Presence of coronary angioplasty implant and graft; R00.1 Bradycardia, unspecified; I10 Essential (primary) hypertension; E78.5 Hyperlipidemia, unspecified; R09.89 Other specified symptoms and signs involving the circulatory and respiratory systems
CPT/HCPCS: 78452; 93017; 93018; 93306; A9502; J2785

== ENCOUNTER 2024-09-30 11:33 | Outpatient (CLI) | payer MEDICARE, SELFPAY ==
[2024-09-30 12:08] LABS: Basophils % 0.1 % (0.1-2.0); Eosinophils # 0.2 K/mm3 (0.0-0.4); Eosinophils % 1.4 % (0.1-12.0); Hematocrit 47.3 % (42.0-52.0); Hemoglobin 16.3 g/dL (14.1-18.0); Lymphocytes # 4.2 K/mm3 (0.7-4.5); Lymphocytes % 36.5 % (10-50); Mean Corpuscular HGB Conc 34.5 g/dL (31.8-35.4); Mean Corpuscular Hemoglobin 34.1 pg (27.0-31.2); Mean Platelet Volume 10.8 fl (7.4-10.4); Neutrophils % 52.6 % (37.0-80.0); Platelet Count 236 K/mm3 (142-424); Red Blood Count 4.78 M/mm3 (4.60-6.20); Red Cell Distribution Width 14.1 % (11.5-17.5); White Blood Count 11.4 K/mm3 (4.8-10.8)
[2024-09-30 12:34] LABS: Albumin Level 3.9 g/dl (3.5-5.0); Chloride 105 mmol/L (98-107); Sodium 138 mmol/L (136-145)
[2024-09-30 12:35] LABS: Potassium 4.4 mmoL/L (3.5-5.1)
[2024-09-30 12:37] LABS: Alanine Aminotransferase 24 U/L (12-78); Alkaline Phosphatase 70 U/L (38-126); Anion Gap 7.4 mEq/L (5-15); Aspartate Amino Transferase 25 U/L (17-59); Bilirubin,Direct 0.3 mg/dl (0.0-0.4); Bilirubin,Indirect 0.3 mg/dL (0.0-0.9); Bilirubin,Total 0.6 mg/dl (0.2-1.3); Bilirubin,Unconjugated 0.3 mg/dL (0.0-1.1); Blood Urea Nitrogen 11 mg/dl (9-20); Carbon Dioxide 30 mmol/L (22.0-30.0); Cholesterol 171 mg/dl (140-200); Estimated Glomerular Filt Rate 95 ml/min (>60); GFR (African American) 115 ML/MIN (>60); Total Protein,Serum 6.1 g/dl (6.3-8.2); Triglycerides 129 mg/dl (30-150); VLDL Cholesterol 26 mg/dL (0-40)
[2024-09-30 12:38] LABS: Calcium 10.4 mg/dl (8.4-10.2); Chol/HDL Ratio 2.8 (1-3.5); Glucose 89 mg/dl (74-100); HDL Cholesterol 62 mg/dl (40-60)
[2024-09-30 12:48] LABS: Direct LDL Cholesterol 87.98 mg/dL (100-129)
[2024-09-30 12:53] LABS: Free T4 (Free Thyroxine) 1.24 ng/dl (0.78-2.19)
== END 2024-09-30 23:59 | disposition home or self-care (01) ==
LOC: LAB 11:34
PROVIDERS: PCP Nurse Practitioner Family; Visit Provider Physician Assistant
DX: I25.10 Atherosclerotic heart disease of native coronary artery without angina pectoris (principal); I10 Essential (primary) hypertension; E78.5 Hyperlipidemia, unspecified; E66.9 Obesity, unspecified; Z72.0 Tobacco use
CPT/HCPCS: 36415; 80048; 80061; 80076; 84439; 84443; 85025

== ENCOUNTER 2024-10-04 11:24 | Day surgery (SDC) | payer MEDICARE, SELFPAY ==
[2024-10-04] VITALS (9 sets, daily range): BP systolic 123–167; BP diastolic 69–86; PULSE 48–54; RESP 18–22; O2SAT 90–98; BMI 28.9
--- NOTE | 2024-10-04 07:16 | IR_ITS ---
APPROVED REPORT Patient Location: Outpatient PROCEDURES Left heart catheterization Left ventriculogram Selective coronary angiogram INDICATION Angina pectoris, Known coronary artery disease, Abnormal Myoview Informed consent was obtained prior to the procedure. COMPLICATIONS NONE Estimated Blood Loss: LESS THAN 10 ML TECHNIQUE One percent lidocaine used to anesthetize the right anterior aspect of the wrist. The right radial artery was accessed via the Seldinger technique. A 6 [place]uv[place] sheath was placed in the right radial artery. 2.5 mg of Verapamil, 800 mcg of nitroglycerin, 1mg Lidocaine and 5000 U Heparin were given through the arterial sheath. The papa catheter was also used to perform left heart catheterization, left ventriculogram and selective coronary angiogram. At the end of the procedure the sheath was removed good hemostasis was achieved using Traclet band, patient was transferred to the postop holding area in stable condition. ANGIOGRAPHIC RESULTS The left main artery Has a smooth ostial 30% stenosis The left anterior descending artery Has a stent in the proximal segment which is widely patent free of in-stent restenosis with excellent proximal distal transitioning The circumflex artery Nondominant with mild 10% luminal irregularities The right coronary artery Dominant with proximal 10 to 20% luminal regularities The MELTON ventriculogram reveals Slightly dilated with an ejection fraction of 50% The left ventricular end-diastolic pressure 20 to 25 mmHg IMPRESSION Coronary disease as described above Dilated ventricle with ejection fraction of 50% accompanied by elevated LVEDP PLAN 1. Medical management 2. Recommend sleep study Electronically signed by : Michael Gardner MD 10/04/2024 14:12:18
[2024-10-04] MEDS: VERAPAMIL 2.5MG/ML 2ML VIAL 2.5 MG IV (13:44)
[2024-10-04] MEDS: FENTANYL 100MCG/2ML VIAL 50 MCG IV (13:44)
[2024-10-04] MEDS: MIDAZOLAM HCL 1MG/ML 5ML VIAL 1 MG IV (13:44)
[2024-10-04] MEDS: diphenhydrAMINE 50MG/ML VIAL 50 MG IV (13:45)
[2024-10-04] MEDS: HEPARIN 1,000 UNITS/500ML NS (CATH LAB) 3000 UNIT IV (13:45)
[2024-10-04] MEDS: NITROGLYCERIN 800MCG/8ML SYR (CATH LAB) 800 MCG IA (13:47)
[2024-10-04] MEDS: HEPARIN 1,000 UNITS/ML 10ML VIAL (CATH LAB) 10000 UNIT IV (13:47)
[2024-10-04] MEDS: LIDOCAINE 1% 10ML MDV 20 ML IJ (13:47)
[2024-10-04] MEDS: 0.9 % SODIUM CHLORIDE 500 ML 25 ML IV (13:47)
[2024-10-04] MEDS: IOPAMIDOL-370 (76%);100ML BOTTLE 90 ML IV (15:14)
== END 2024-10-04 16:06 | disposition home or self-care (01) ==
PROVIDERS: PCP Nurse Practitioner Family; Visit Provider Internal Medicine
DX: I25.118 Atherosclerotic heart disease of native coronary artery with other forms of angina pectoris (principal); R94.39 Abnormal result of other cardiovascular function study; I48.0 Paroxysmal atrial fibrillation; Z79.01 Long term (current) use of anticoagulants; I10 Essential (primary) hypertension; E78.5 Hyperlipidemia, unspecified; Z95.5 Presence of coronary angioplasty implant and graft; F17.210 Nicotine dependence, cigarettes, uncomplicated; F10.90 Alcohol use, unspecified, uncomplicated; R29.6 Repeated falls
CPT/HCPCS: 93458; 99152; C1725; C1769; J1200; J1644; J3010; Q9967

== ENCOUNTER 2024-10-12 11:08 | Outpatient (CLI) | payer MEDICARE, SELFPAY | END 2024-10-12 23:59 | disposition home or self-care (01) | LOC: LAB.DROPOF 10-13 12:40 | PROVIDERS: PCP Nurse Practitioner Family; Visit Provider Nurse Practitioner Family | DX: R30.0 Dysuria (principal) | CPT/HCPCS: 87086 ==

== ENCOUNTER 2024-12-27 06:08 | Day surgery (SDC) | payer MEDICARE, SELFPAY ==
[2024-12-24 09:48] VITALS: BMI 27.5
[2024-12-27 07:04] VITALS: BP 130/76; PULSE 51; RESP 16; TEMP 36.1; O2SAT 97; BMI 27.5
--- NOTE | 2024-12-27 07:12 | EXP.HP ---
History of Present Illness *Admission Date: 12/27/24 *Reason for visit:: Personal history of adenomatous colon polyps *History of present illness: Mr. Felix is a 74-year-old gentleman who is here for surveillance colonoscopy secondary to a personal history of adenomatous colon polyps. The examination is deemed medically necessary for surveillance/screening colonoscopy. The patient has been seen, interviewed and examined prior to the procedure by both myself and the anesthesia provider. [facility] Disclaimer: The information contained in this section may have been updated after the patient was seen, as this information can be updated by other users. Medical History (Updated 12/27/24 @ 07:13 by Chris Riggs II, MD) Burning with urination Abnormal cardiovascular stress test Fall Renal cyst Paroxysmal atrial fibrillation Bradycardia Chest pain History of peripheral vascular disease History of pulmonary embolus (PE) A-fib HLD (hyperlipidemia) HTN (hypertension) Smoking greater than 30 pack years Mediastinal lymphadenopathy Multiple lung nodules on CT Nodule of right lung Atypical pneumonia Back pain with history of spinal surgery Surgical History History of lung biopsy S/P peripheral artery angioplasty with stent placement History of cardiac cath History of back surgery History of colonoscopy Family History Other Asthma COPD (chronic obstructive pulmonary disease) Family history of atrial fibrillation Hypertension Social History (Updated 12/27/24 @ 07:05 by Kathrin Morris RN) Smoking Status: Current every day smoker tobacco type: cigarettes packs per day: 1 quit status: not considering quitting alcohol intake: current alcohol intake frequency: a few times a week substance use type: denies use, marijuana and prescription drug current occupational status: retired Travel in the last 8 weeks?: None household members: spouse housing: house marital status: service: Yes senior living: No pets and animals: Yes Hx Recent Travel: No caffeine: No Have you lived/traveled outside US in past 30 days?: No Contact w/someone who lives/traveled outside US past 30 days?: No Exposure to someone with infectious disease in past 14 days?: No Do you have a fever (greater than 100.4 F or 38 C)?: No Have you tested positive for COVID-19?: No Exposed to someone with COVID-19 in past 14 days?: No Do you have a sore throat?: No Do you have a cough?: No Do you have any weakness?: No Are you experiencing any nausea/vomitting?: No Do you have any diarrhea?: No Are you experiencing any unusual bleeding?: No Do you have any muscle aches/pain?: No Do you have any abdominal pain?: No Are you experiencing loss of taste or smell?: No Other Medical History Have you received the Flu Vaccine for this season: No Have you received the Pneumonia Vaccine: Yes Review of Systems Review of Systems Review of systems (narrative): Negative *Cardiovascular Comments: Negative *Gastrointestinal Comments: Negative *Genitourinary Comments: Negative *Musculoskeletal Comments: Negative *Neurologic Comments: Negative Meds Home Medications and Allergies Home Medications ?Medication ?Instructions ?Recorded ?Confirmed ?Type cholecalciferol (vitamin D3) 50 2,000 unit PO DAILY Supplement 12/22/17 12/27/24 History mcg (2,000 unit) capsule aspirin 81 mg chewable tablet 81 mg PO DAILY #30 tabs 03/06/23 12/27/24 Rx (Children's Aspirin) sennosides 8.6 mg-docusate sodium 1 tab-cap PO BID PRN constipation 09/15/23 12/27/24 Rx 50 mg capsule 90 days #120 caps ascorbic acid (vitamin C) 500 mg 500 mg PO DAILY 11/17/23 12/27/24 History capsule,extended release simvastatin 40 mg tablet See Rx Instructions .Route 04/05/24 12/27/24 Rx .COMPLEX #90 tabs lisinopril 20 mg tablet 20 mg PO BID bp #180 tabs 06/14/24 12/27/24 Rx rivaroxaban 20 mg tablet (Xarelto) See Rx Instructions .Route 08/09/24 12/27/24 Rx .COMPLEX #90 tabs metoprolol tartrate 25 mg tablet 25 mg PO .prn atrial fib #30 tabs 08/30/24 12/27/24 Rx sotalol 160 mg tablet 160 mg PO BID #180 tabs 09/02/24 12/27/24 Rx cyclobenzaprine 10 mg tablet 10 mg PO TID PRN muscle spasm #60 09/22/24 12/27/24 Rx tabs prednisone 20 mg tablet 20 mg PO BID 5 days #10 tabs 09/22/24 12/27/24 Rx tamsulosin 0.4 mg capsule (Flomax) 0.4 mg PO DAILY #30 caps 10/12/24 12/27/24 Rx alprazolam 1 mg tablet 1 mg PO BID nerves #45 tabs 12/05/24 12/27/24 Rx gabapentin 400 mg capsule 400 mg PO TID Pain #90 caps 12/05/24 12/27/24 Rx hydrocodone 7.5 mg-acetaminophen 1 tab PO Q6H PRN pain 30 days #120 12/05/24 12/27/24 Rx 325 mg tablet tabs sodium,potassium,mag sulfates 17.5 See Rx Instructions PO .COMPLEX 12/22/24 12/27/24 Rx gram-3.13 gram-1.6 gram oral soln #354 mL (Suprep Bowel Prep Kit) New Prescriptions to Start Prescriptions: Allergies Allergy/AdvReac Type Severity Reaction Status Date / Time amoxicillin Allergy Intermediate rash Verified 12/24/24 09:27 Penicillins Allergy Intermediate Hives Verified 12/24/24 09:27 prasugrel (From Effient) AdvReac Intermediate Dizziness Verified 12/24/24 09:27 and burning in chest clopidogrel (From Plavix) AdvReac burning in Verified 12/24/24 09:27 chest Exam Data for Last 24 hours I & O for Last 24 hours: Intake & Output 12/24/24 12/25/24 12/26/24 12/27/24 23:59 23:59 23:59 23:59 Weight 232 lb *Routine HEENT Exam Head: Present normocephalic Eye: Present EOMI and PERRL ENT: Present mucous membranes moist *Routine Neck Exam Neck: Present supple *Routine Respiratory Exam Respiratory: Present CTA bilaterally *Routine Cardiovascular Exam Cardiovascular: Present RRR *Routine Abdominal Exam Abdominal: Present soft and normoactive bowel sounds; Absent tenderness *Routine Rectal Exam Rectal:: deferred *Routine Genitalia Exam Genitalia:: deferred *Routine Extremities Exam Extremities: Absent cyanosis, clubbing or edema *Routine Skin Exam Skin: Present warm; Absent rash *Routine Neurological Exam Neurological: Present alert and oriented X3 Assessment and Plan *Assessment and plan (1) Personal history of adenomatous and serrated colon polyps: Status: Acute Category: Medical Code(s): Z86.0101 - Personal history of adenomatous and serrated colon polyps Plan A/P: 1. Personal history of adenomatous colon polyps is the preprocedural diagnosis. The patient will be anesthetized/sedated using MAC sedation. The patient has been seen and examined. Cardiac and lung assessment prior to the examination is stable. Proceed with planned surveillance colonoscopy.
[2024-12-27] MEDS: LACTATED RINGERS 1000ML 1,000 ML 25 ML IV (07:15)
--- NOTE | 2024-12-27 07:17 | P.PCN_ITS ---
[facility] Procedure Note Date: 12/27/24 Time: 07:45 Procedure Note:: Colonoscopy Procedure Report: Colonoscopy Endoscopist: Chris Riggs II, MD Referring physician: TAMIA Burns Date of Procedure: December 27, 2024 Equipment: Olympus 190 variable stiffness pediatric colonoscope Sedation: MAC sedation Indication: Mr. Felix is a 74-year-old gentleman who is here for follow-up screening/surveillance colonoscopy. The patient did have a colonoscopy in November 2018 (Chandrakant Lux M.D.) and had multiple adenomatous colon polyps (tubular adenomas x 4) which were removed. The patient reports no abdominal pain, weight loss, change in his bowel habits or rectal bleeding. He reports no family h istory of colon cancer. He does have some opioid-induced constipation and is on hydrocodone. Procedure: Prior to the procedure, a history and physical exam was performed, and patient's medications and allergies were reviewed. The risks, benefits and alternatives of the sedation and procedure were discussed with the patient. All questions were answered and informed consent was obtained. The patient was brought to the procedure room. Patient identification and proposed procedure were verified by the physician and the nurse. The patient was placed in a left lateral decubitus position and the scope was passed under direct vision. Throughout the procedure, the patient's blood pressure, pulse, and oxygen saturations were monitored continuously. The colonoscopy was accomplished without difficulty. The patient tolerated the procedure well. Findings: On digital rectal examination there was normal rectal tone. There were no external hemorrhoids. The prostate was firm with asymmetry and moderate fullness along the left lateral margin of the prostate. The colonoscope was introduced through the anal canal to the rectum and advanced to the cecum. The ileocecal valve and appendiceal orifice were identified. The scope was advanced a short distance into the ileum which appeared grossly normal. The scope was then withdrawn into the colon. The cecum, ascending, transverse, descending, sigmoid and rectum were grossly normal. There was mild melanosis coli. There was some spot ink tattoo in the transverse colon from prior colonoscopy. There were no other mucosal abnormalities identified. Upon retroflexion within the rectum there were grade 2 internal hemorrhoids. The preparation was excellent throughout with [place] Preparation Score of 9. The cecal time was 12 minutes. Impression: 1. Normal colonoscopy with intubation of the terminal ileum 2. Mild melanosis coli and spot ink tattoo from prior colonoscopy in transverse colon 3. Grade 2 internal hemorrhoids 4. Left sided prostate fullness/firmness Plan: Based upon the patient's age, I am not convinced that he will require any further preventive/surveillance colonoscopy. I am going to recommend PSA testing today and referral to urology because of prostate firm irregularity left lateral margin. The patient's PSA in January 2024 was mildly increased at 4.1.
[2024-12-27 07:52] VITALS: BP 95/55; PULSE 51; RESP 16; TEMP 36.5; O2SAT 96
--- NOTE | 2024-12-27 07:57 | EXP.ANES.CKL ---
[facility] Disclaimer: The information contained in this section may have been updated after the patient was seen, as this information can be updated by other users. Medical History (Updated 12/27/24 @ 07:51 by Chris Riggs II, MD) Burning with urination Abnormal cardiovascular stress test Fall Renal cyst Paroxysmal atrial fibrillation Bradycardia Chest pain History of peripheral vascular disease History of pulmonary embolus (PE) A-fib HLD (hyperlipidemia) HTN (hypertension) Smoking greater than 30 pack years Mediastinal lymphadenopathy Multiple lung nodules on CT Nodule of right lung Atypical pneumonia Back pain with history of spinal surgery Surgical History History of lung biopsy S/P peripheral artery angioplasty with stent placement History of cardiac cath History of back surgery History of colonoscopy Family History Other Asthma COPD (chronic obstructive pulmonary disease) Family history of atrial fibrillation Hypertension Social History (Updated 12/27/24 @ 07:05 by Kathrin Morris RN) Smoking Status: Current every day smoker tobacco type: cigarettes packs per day: 1 quit status: not considering quitting alcohol intake: current alcohol intake frequency: a few times a week substance use type: denies use, marijuana and prescription drug current occupational status: retired Travel in the last 8 weeks?: None household members: spouse housing: house marital status: service: Yes residential: No pets and animals: Yes Hx Recent Travel: No caffeine: No Have you lived/traveled outside US in past 30 days?: No Contact w/someone who lives/traveled outside US past 30 days?: No Exposure to someone with infectious disease in past 14 days?: No Do you have a fever (greater than 100.4 F or 38 C)?: No Have you tested positive for COVID-19?: No Exposed to someone with COVID-19 in past 14 days?: No Do you have a sore throat?: No Do you have a cough?: No Do you have any weakness?: No Are you experiencing any nausea/vomitting?: No Do you have any diarrhea?: No Are you experiencing any unusual bleeding?: No Do you have any muscle aches/pain?: No Do you have any abdominal pain?: No Are you experiencing loss of taste or smell?: No [facility] Anesthesia Checklist Patient Identification Patient Identification: Verbal (Name & ) Structural Data Admitted From: Home Planned Operative Procedure/s: colonoscopy Consent for Planned Operative Procedure(s) Verified: Yes NPO Status Verified Time NPO: 00:00 Additional verifications Anesthesia Reactions: No Hx Blood Transfusions: No Blood Transfusion Reaction: No Airway Assessment Mallampati Score:: Class II C-Spine Mobility Assessed: Yes TMJ Mobility Assessed: Yes Dentition: Good Dentition Neurological Assessment Level of Consciousness: Awake, Alert and Appropriate Anesthesia Plan Anesthesia Risk discussed: Yes Anesthesia Plan: Verified ASA Class: III Anesthesia Type: MAC
[2024-12-27 08:02] VITALS: BP 101/63; PULSE 52; RESP 16; O2SAT 98
[2024-12-27 08:12] VITALS: BP 100/65; PULSE 51; RESP 16; O2SAT 98
[2024-12-27 08:22] VITALS: BP 103/67; PULSE 49; RESP 16; O2SAT 98
== END 2024-12-27 08:25 | disposition home or self-care (01) ==
PROVIDERS: PCP Nurse Practitioner Family; Visit Provider Internal Medicine Gastroenterology
PROC: 0DJD8ZZ Inspection of Lower Intestinal Tract, Via Natural or Artificial Opening Endoscopic (ICD-10-PCS; CPT 45378; principal; 2024-12-27 07:30)
DX: Z12.11 Encounter for screening for malignant neoplasm of colon (principal); Z86.0101 Personal history of adenomatous and serrated colon polyps; K64.1 Second degree hemorrhoids; K63.89 Other specified diseases of intestine; N42.89 Other specified disorders of prostate; K59.03 Drug induced constipation; T40.2X5A Adverse effect of other opioids, initial encounter; I48.0 Paroxysmal atrial fibrillation; E78.5 Hyperlipidemia, unspecified; I10 Essential (primary) hypertension; F17.210 Nicotine dependence, cigarettes, uncomplicated; I73.9 Peripheral vascular disease, unspecified; R97.20 Elevated prostate specific antigen [PSA]; Z95.820 Peripheral vascular angioplasty status with implants and grafts; Z86.711 Personal history of pulmonary embolism; Z79.899 Other long term (current) drug therapy; Z79.82 Long term (current) use of aspirin; Z79.01 Long term (current) use of anticoagulants; Z79.52 Long term (current) use of systemic steroids; Z88.0 Allergy status to penicillin; Z88.8 Allergy status to other drugs, medicaments and biological substances
CPT/HCPCS: G0121; J2003; J2704; J7120

== ENCOUNTER 2025-05-09 12:52 | Outpatient (CLI) | payer MEDICARE, SELFPAY ==
--- NOTE | 2025-05-09 13:00 | CT_ITS ---
FINAL REPORT CLINICAL HISTORY: lung cancer screening. smoker 1ppd for 21 years. COMPARISON: 11/18/2022 FINDINGS: CTDI vol (mGy): 2.90 DLP: 1-1.[address] images of the chest were obtained using the low-dose protocol for screening. There are dense coronary artery calcifications. There is no evidence of mediastinal or hilar mass or adenopathy. No axillary mass or adenopathy is identified. Benign-appearing right renal cysts are present. There is coarse linear density in the upper lobes with more localized opacity at the right lung base, similar to prior exam and favored to be related to multifocal scarring and postinflammatory reaction. There is new density in the posterior left upper lobe measuring 11 mm on image 121 of series 2 with a second adjacent focus measuring 9 mm on image 132 of series 2. IMPRESSION: Extensive areas of scarring and parenchymal opacity favored to be postinflammatory. Noncalcified nodular density in the left upper lobe measuring 11 mm which may be infectious or neoplastic. Lung RADS category 4B. Recommend 1 month follow-up CT or PET/CT. Due to size and location of this density tissue sampling may be challenging. Reviewed, Interpreted and Dictated by Markus Britt MD Transcribed by Natalie Pichardo Authenticated and [facility]
--- OUTSIDE RECORDS SUMMARY | 2025-05-09 13:00 | XMS_ITS | Clinical Summary ---
Author Organization Healthcare Address [address] [place] [address] Care Team Providers Care Ic [employer]er [employer] Name Role Phone Tone Cuenca Yessi SALAZAR Primary Care Provider [phone] Allergies Active Allergy Reactions Criticality Noted Date Comments Amoxicillin Rash Low 11/12/2023 Clopidogrel Other - please docum ent in the comment field Low 11/12/2023 Burning in chest Penicillin G Hives,Shortness of breath,Swelling,Rash High 06/10/2006 Prasugrel Dizziness Low 11/12/2023 Medications cholecalciferol (Vitamin D-3) 50 MCG (1999) capsule Take 1 capsule (2,000 Units) by mouth 1 (one) time each day. Active gabapentin (Neurontin) 400 MG capsule Take 1 capsule (400 mg) by mouth 3 (three) times a day. Active HYDROcodone-safia taminophen ([place]) 7.5-325 MG tablet Active lisinopril 20 MG tablet Take 1 tablet (20 mg) by mouth 2 (two) times a day. Active metoprolol tartrate (Lopressor) 25 MG tablet Take 1 tablet (25 mg) by mouth 1 (one) time each day if needed. Active pantoprazole (Protonix) 40 MG EC tablet Take 1 tablet (40 mg) by mouth 1 (one) time each day. Do not crush, chew, or split. Active rivaroxaban (Xarelto) 20 MG tablet Take 1 tablet (20 mg) by mouth 1 (one) time each day with dinner. Take with food. Active senna-docusate (Ibis-Colace) 8.6-50 MG tablet Take 1 tablet by mouth 1 (one) time each day. Active sotalol (Betapace) 120 MG tablet Take 1 tablet (120 mg) by mouth 2 (two) times a day. Active ticagrelor (Brilinta) 90 MG tablet Take 1 tablet (90 mg) by mouth 1 (one) time each day. Active aspirin 81 MG EC tablet Take 1 tablet (81 mg) by mouth 1 (one) time each day. Active simvastatin (Zocor) 40 MG tablet 11/16/2023 Active ALPRAZolam (Xanax) 1 MG tablet TAKE ONE TABLET BY MOUTH TWICE DAILY FOR nerves 10/16/2023 Active Immunizations Immunization Administration Dates Next Due Pneumococcal Conjugate PCV 13 04/13/2016 Pneumococcal Polysaccharide PPV23 2017 Family History Medical History Relation Name Comments Kidney disease Brother Osteoporosis Father Diabetes Mother Heart attack Mother Hyperlipidemia Mother Hypertension Mother Osteopetrosis Mother Relation Name Status Comments Brother Father Mother Social History Tobacco Use Types Packs/Day Years Used Date Smoking Tobacco: Every Day Cigarettes Smokeless Tobacco: Never Alcohol Use Standard Drinks/Week Comments Never 0 (1 standard drink = 0.6 oz pur e alcohol) PHQ-2 Answer Date Recorded Patient Health Questionnaire-2 Score 0 11/17/2023 Sex and Gender Information Value Date Recorded Sex Assigned at Not on file Legal Sex Male 8:50 PM EDT Gender Identity Not on file Sexual Orientation Not on file Last Filed Vital Signs Vital Sign Reading Time Taken Comments Blood Pressure 151/82 11/17/2023 9:42 AM EDT Pulse 53 11/17/2023 9:42 AM EDT Temperature - - Respiratory Rate 18 11/17/2023 9:42 AM EDT Oxygen Saturation 99% 11/17/2023 9:42 AM EDT Inhaled Oxygen Concentration - - Weight 109 kg (239 lb 3.2 oz) 11/17/2023 9:42 AM EDT Height 195.6 cm (6' 5 ) 11/17/2023 9:42 AM EDT Body Mass Index 28.36 11/17/2023 9:42 AM EDT Plan of Treatment Health Maintenance Due Date Last Done Comments [facility]-Hepatitis C Screening 1950 [facility]Medic[facility] Annual Wellness (AWV) 1950 [facility]-Infant/Child/Adol SDOH Screenings 1950 [facility]- SDOH Screenings 1969 [facility]-Adult SDOH Screenings 1969 [facility]-DTaP,Tdap,and Td Vaccine s (1 - Tdap) 1970 CT Colonography 1996 Colonoscopy 1996 FIT-DNA 1996 FIT 1996 FOBT 1996 Sigmoidoscopy 1996 [facility]-Colorectal Cancer Screening 1996 [facility]-Zoster Vaccines (1 of 2) 2001 [facility]-Depression Screening 11/16/2024 11/17/2023 [id number] Vaccine (3 - season) 2025 07/02/2021, 10/14/2020 [facility]-Influenza Vaccine (#1) 2025 [facility]-RSV Vaccine: 60+ Years o r (1 - 1-dose 75+ series) 2026 [facility]-Pneumococcal Vaccine: 50 + Years Completed 2017, 04/13/2016 [facility]-Obesity Intervention Completed 11/17/2023 HPV Vaccines Aged Out No longer eligi ble based on patient's age to complete this topic [facility]-HIB Vaccines Aged Out No longer e ligible based on patient's age to complete this topic [facility]-Hepatitis A Vaccines Aged Out No longer eligible based on patient's age to complete this topic [facility]-IPV Vaccines Aged Out No longer e ligible based on patient's age to complete this topic [facility]-Rotavirus Vaccines Aged Out No lo nger eligible based on patient's age to complete this topic Insurance [facility] MEDICARE Care Teams Ic [employer]er [employer] Relationship Specialty Start Date End Date Tone Cuenca APRN 9 [facility] GEOVANNY Villalba [phone] PCP - General 11/17/23
--- OUTSIDE RECORDS SUMMARY | 2025-05-09 13:00 | XMS_ITS | Clinical Summary ---
Author Organization [facility] Address [address] [place] [address] Care Team Providers Care Quality Manager Name Role Phone Mt Colorado MD Primary Care Provider [phone] Allergies Active Allergy Reactions Criticality Noted Date Comments Penicillins 04/04/2015 Medications sotalol (BETAPACE) 120 MG tablet Take 120 mg by mouth 2 (two) times a day. 12/31/2015 Active warfarin (COUMADIN) 10 MG tablet Sliding scale 12/18/2015 Activ e simvastatin (ZOCOR) 40 MG tablet Take 40 mg by mouth every night. 12/31/2015 Active lisinopril (PRINIVIL,ZESTR IL) 20 MG tablet Take 20 mg by mouth daily. 12/31/2015 Active HYDROcodone-safia taminophen (NORCO) 7.5-325 MG per tablet every 6 (six) hours as needed. 02/07/2016 Active aspirin 81 MG tablet Take 81 mg by mouth Daily. Active Red Yeast Rice Extract (RED YEAST RICE PO) Take 600 mg by mouth daily. Active Coenzyme Q10 (COQ10) 200 MG capsule Take 200 mg by mouth daily. Active ALPRAZolam (XANAX) 1 MG tablet Take 1 mg by mouth 2 (Two) Times a Day As Needed for anxiety. Active metoprolol tartrate (LOPRESSOR) 25 MG tablet Take 25 mg by mouth Every 8 (Eight) Hours As Needed (when in atrial fib). Active TURMERIC CURCUMIN PO Take by mouth. Active nicotine (NICODERM CQ) 21 MG/24HR patch Place 1 patch on the skin as directed by provider Daily. 28 patch 12/26/2018 Active gabapentin (NEURONTIN) 300 MG capsule Take 1 capsule by mouth 3 (Three) Times a Day With Meals. 11/08/2019 Active sildenafil (REVATIO) 20 MG tablet Take 20 mg by mouth Daily. 10/27/2019 Active Active Problems Problem Noted Date Diagnosed Date Coronary artery disease 04/04/2015 Overview (02/28/2016): a. June 2014, MPS at [facility] within normal limits. Coronary artery disease, nonobstructive prior, acceptable MPS, asymptomatic. Continue medical prescriptions. Valvular heart disease 04/04/2015 Overview (02/28/2016): Valvular heart disease, remote TE, small PFO with left to right shunting, mild AI, MR, and TR. PVD (peripheral vascular disease) 04/04/2015 Overview (02/28/2016): a. 2002, bilateral iliac stenting; runoffs 2003, widely patent. 1. Peripheral vascular disease, stable with no claudication symptoms. Continue surveillance monitoring. Would like an echocardiogram with historical valvular heart disease. Nicotine addiction 04/04/2015 Overview (02/28/2016): Ongoing. Dyslipidemia 04/04/2015 Overview (02/28/2016): Dyslipidemia, on statin therapy.a. October 2013, total 190, HDL 30, LDL not performed secondary to triglycerides 466 with normal TSH. Paroxysmal atrial fibrillation 04/04/2015 Overview (02/28/2016): CHADS 2. 1. . CHADS = 3 on sotalol and Warfarin. Acceptable QT at current. Borderline diabetes 04/04/2015 Overview (02/28/2016): Borderline diabetes, recent blood sugar elevated and high triglyceride. A1c of 5.7. Counseled regarding need for decreasing simple carbohydrate intake. He states he drinks Gatorade and Sprite on a regular basis. Lumbar disc disease 04/04/2015 Obesity 04/04/2015 Hypertension 04/04/2015 Overview (02/28/2016): Modestly controlled. Family History Medical History Relation Name Comments Arrhythmia Mother Heart disease Mother Relation Name Status Comments Brother Alive Father Mother Sister Alive Social History Tobacco Use Types Packs/Day Years Used Date Smoking Tobacco: Some Days Cigarettes Smokeless Tobacco: Never Alcohol Use Standard Drinks/Week Comments Yes 60 (1 standard drink = 0.6 oz pu re alcohol) Abuse Screen Answer Date Recorded Unsafe at Home or Work/School Not on file Feels Threatened by Someone? Not on file 03/2023 Does Anyone Keep You from Co ntacting Others or Doint Things Outside the Home? Not on file 04/21/2023 Physical Sign of Abuse Present Not on file 1 Housing Stability Answer Date Recorded Current Living Arrangements Not on file 03/2023 Potentially Unsafe Housing Conditions Not on taya e 04/21/2023 Family and Community Support Answer Alexis e Recorded Help with Day-to-Day Activities Not on file 04/21/2023 Lonely or Isolated Not on file 04/21/2023 Employment Answer Date Recorded Do you want help finding or keeping work or a cecil b? Not on file 04/21/2023 Disabilities Answer Date Recorded Concentrating, Remembering, or Making Decisions Difficulty Not on file 04/21/2023 Doing Errands Independently Difficulty Not on fi le 04/21/2023 Education Answer Date Recorded Help with school or training? Not on file Preferred Language Not on file 04/21/2023 Sex and Gender Information Value Date Recorded Sex Assigned at Not on file Legal Sex Male 12:03 PM EDT Gender Identity Not on file Sexual Orientation Not on file Last Filed Vital Signs Vital Sign Reading Time Taken Comments Blood Pressure 112/68 11/10/2019 11:32 AM EDT Pulse 70 11/10/2019 11:32 AM EDT Temperature 37 C (98.6 F) 11/04/2019 8:27 AM EDT Respiratory Rate 18 11/04/2019 10:18 AM EDT Oxygen Saturation 100% 11/04/2019 11:15 AM EDT Inhaled Oxygen Concentration - - Weight 102 kg (225 lb) 11/10/2019 11:32 AM EDT Height 195.6 cm (6' 5 ) 11/10/2019 11:32 AM EDT Body Mass Index 26.68 11/10/2019 11:32 AM EDT Plan of Treatment Health Maintenance Due Date Last Done Comments TDAP/TD VACCINES (1 - Tdap) 1970 COLOGUARD 1996 COLON CANCER SCREENING 5 YEAR SIGMOIDOSCOPY 1996 COLONOSCOPY 1996 [address] CANCER SCREENING 1996 CT COLONOGRAPHY 1996 FECAL OCCULT BLOOD TEST 1996 FIT Testing (1 year) 1996 Pneumococcal Vaccine 50+ (1 of 1 - PCV) 2001 ZOSTER VACCINE (1 of 2) 2001 AAA SCREEN ONCE 2016 ANNUAL PHYSICAL 10/07/2017 HEPATITIS C SCREENING 10/07/2017 INFLUENZA VACCINE 02/11/2025 COVID-19 Vaccine ( season) 2025 Insurance MEDICARE ADVANTAGE PPO Care Teams Quality Manager Relationship Specialty Start Date End Date Mt Colorado MD [address] [facility] [address] ATTN: [place] [address] PCP - General Emergency Medicine 03/05/16
== END 2025-05-09 23:59 | disposition home or self-care (01) ==
LOC: RAD 12:53
PROVIDERS: PCP Nurse Practitioner Family; Visit Provider Nurse Practitioner Family
DX: Z12.2 Encounter for screening for malignant neoplasm of respiratory organs (principal); F17.210 Nicotine dependence, cigarettes, uncomplicated; J98.4 Other disorders of lung; I25.10 Atherosclerotic heart disease of native coronary artery without angina pectoris; N28.1 Cyst of kidney, acquired
CPT/HCPCS: 71271

== ENCOUNTER 2025-06-13 12:45 | Outpatient (CLI) | payer MEDICARE, SELFPAY ==
--- OUTSIDE RECORDS SUMMARY | 2025-06-13 12:49 | XMS_ITS | Data Portability ---
Author Organization [facility] Address [address] [place] [address] Assessment No assessment recorded. Plan of Treatment Reminders Order Date Submit Date Provider Last Modified By Organization Details Last Modified Time Details Appointments None recorded. Lab None recorded. Referral None recorded. Procedures None recorded. Surgeries None recorded. Imaging None recorded. Medication Orders Xarelto 20 mg tablet [address], [address], 3 15:36:53 Patient TargetsNo targets recorded. Patient InstructionsNo instructions recorded. Reason for Referral None Reported. Problems Name Problem SNOMED Code Status Onset Date Resolution Date Notes Provider Name and Address Organization Details Recorded Time Atrial fibrillation 92219705 Active [facility], [facility] 3 15:03:05 Hypertensive disorder 40352899 Active Lona De Souza [facility] 3 15:03:22 Hyperlipidemia 68953367 Active Lakeshia De Suoza [facility] 3 15:03:38 Problem Notes None recorded. Procedures Surgical History Date Name Laterality Status Provider Name and Address Organization Details Recorded Time insertion of stent into vein completed Lona De Souza [facility] 08/23/2022 15:11:04 Imaging Results None recorded. Procedure Notes None recorded. Medical Equipment None Reported. Allergies Allergen ID Allergen Name Allergen Category Reaction Reaction Severity Criticality Documentation Date Start Date Code Code System Note Provider Name and Address Organization Details Recorded Time 723665 Product containin g penicilli n (product) medicatio n rash Not available high 08/23/2022 42070 8001 SNOMED Lona De Souza null, [place] - [facility] 3 15:00:12 Medications Name Sig Start Date Stop Date Status Note LastModified by Organization Details LastModified Time triazolam 0.25 mg tablet TAKE ONE TABLET BY MOUTH ONCE DIRECTED 08/23 completed Not Available Not Available Not Available azithromyci n 250 mg tablet TAKE 2 TABLETS BY MOUTH ON DAY 1, THEN TAKE 1 TABLET DAILY ON DAYS 2-5 active Not Available Not Available No t Available alprazolam 1 mg tablet TAKE ONE TABLET BY MOUTH TWICE DAILY FOR nerves MAY CAUSE DROWSINES S active Not Available Not Available No t Available lisinopril 20 mg tablet Take 1 tablet every day by oral route for 90 days. active Not Available Not Available No t Available gabapentin 400 mg capsule TAKE ONE CAPSULE BY MOUTH THREE TIMES DAILY MAY CAUSE DROWSINES S active Not Available Not Available No t Available sotalol 120 mg tablet Take 1 tablet every 12 hours by oral route for 90 days. active Not Available Not Available No t Available simvastatin 40 mg tablet Take 1 tablet every day by oral route for 90 days. active Not Available Not Available No t Available hydrocodone 7.5 mg-acetamin ophen 325 mg tablet TAKE ONE TABLET BY MOUTH FOUR TIMES DAILY NEEDED FOR PAIN MAY CAUSE DROWSINES S active Not Available Not Available No t Available gabapentin 300 mg capsule TAKE ONE CAPSULE BY MOUTH THREE TIMES DAILY FOR PAIN MAY CAUSE DROWSINES S 08/23 completed Not Available Not Available Not Available metoprolol succinate ER 25 mg tablet,exte nded release 24 hr TAKE ONE TABLET BY MOUTH EVERY DAY NEEDED FOR BLOOD PRESSURE 08/23 completed Not Available Not Available Not Available levofloxaci n 500 mg tablet TAKE ONE TABLET BY MOUTH ONCE DAILY FOR 10 DAYS active Not Available Not Available No t Available Murine Ear 6.5 % drops instill 5 drops into THE affected ear(s) DAILY FOR FOUR DAYS DIRECTED active Not Available Not Available No t Available metoprolol tartrate 25 mg tablet TAKE ONE TABLET BY MOUTH FOR ONSET of A-fib AND THEN TAKE ONE TABLET EVERY 8 HOURS UP TO 24 hours OR UNTIL heart converts TO normal rhythm active Not Available Not Available No t Available sildenafil (pulmonary hypertensio n) 20 mg tablet TAKE ONE TABLET BY MOUTH EVERY DAY DIRECTED 08/23 completed Not Available Not Available Not Available pregabalin 75 mg capsule TAKE ONE CAPSULE BY MOUTH TWICE DAILY MAY CAUSE DROWSINES S 08/23 completed Not Available Not Available Not Available Xarelto 20 mg tablet Take 1 tablet every day by oral route. 2022 active Not Available Not Available Not Avai lable Vitals Date Recorded Body weight Body temperature Heart rate Oxygen saturation Respiratory rate Pain severity - 0-10 verbal numeric rating [Score] - Reported Body mass index (BMI) Body height Systolic And Diastolic Provider Name and Address Organization Details Last Updated DateTime 3 998450. 05 g 98.2 [degF] 50 /min 96 % 18 /min 0 30.3 kg/m2 190.5 cm 124/78 mm[Hg] Lona D eSouza [place] - [facility] 3 14:59:27 Social History Question Answer Notes LastModified by Organizat ion Details LastModified Time Tobacco Smoking Status Current Every Day Smoker Lona martinez, [place] - [facility] 08/23/2022 15:09:58 Do You Have An Advance Directive? No Information not available 08/23/2022 Are You Blind Or Do You Have Difficulty Seeing? No Information not available 08/23/2022 What Is Your Level Of Caffeine Consumption? Occasional Information not available 08/23/2022 In The 14 Days Before Symptom Onset, Have You Had Close Contact With A Laboratory-confir med COVID-19 While That Case Was Ill? No Information not available 08/23/2022 In The 14 Days Before Symptom Onset, Have You Had Close Contact With A Person Who Is Under Investigation For COVID-19 While That Person Was Ill? No Information not available 08/23/2022 Have You Been To An Area Known To Be High Risk For COVID-19? No Information not available 08/23/2022 Are You Deaf Or Do You Have Serious Difficulty Hearing? No Information not available 08/23/2022 What Type Of Diet Are You Following? REGULAR Information not available 08/23/2022 Which Illicit Or Recreational Drugs Have You Used? Marijuana Information not available 08/23/2022 Have You Processed Blood Or Body Fluids From An Ebola Virus Disease Patient Without Appropriate PPE? No Information not available 08/23/2022 Do You Reside In Or Have You Traveled To An Area Where Ebola Virus Transmission Is Active? No Information not available 08/23/2022 What Is The Highest Grade Or Level Of School You Have Completed Or The Highest Degree You Have Received? [id number] Information not available 08/23/2022 Have There Been Any Changes To Your Family Or Social Situation? No Information no t available 08/23/2022 What Is The Fluoride Status Of Your Home? Fluoridated Information not available 08/23/2022 Have You Recently Or Are You Planning To Travel To An Area With Zika Virus? No Information not available 08/23/2022 How Many Years Have You Used Illicit Or Recreational Drugs? 50 Information not available 08/23/2022 Do You Have A Medical Power Of Sample Coordinator? No Information not available 08/23/2022 What Is Your Relationship Status? Information not available 08/23/2022 Are You Sexually Active? Yes Information not available 08/23/2022 Do You Have Smoke And Carbon Monoxide Detectors In Your Home? Yes Information not available 08/23/2022 At What Age Did You Start Smoking Tobacco? 22 Information not available 08/23/2022 Are You Passively Exposed To Smoke? No Information no t available 08/23/2022 How Much Tobacco Do You Smoke? 1 PPD Information not available 08/23/2022 How Many Years Have You Smoked Tobacco? 50 Information not available 08/23/2022 Have You Used IV Drugs? No Information not available 08/23/2022 Do You Have Difficulty Walking Or Climbing Stairs? No Information not available 08/23/2022 Sex: Male Functional Status Question Answer Note LastModified by Organizat ion Details LastModified Time How many times per week do you consume alcohol? 3-4 times per week Information not available 08/23/2022 Do you use any illicit or recreational drugs? Yes marijuana Information not available 08/23/2022 What is your level of alcohol consumption? Moderate Information not available 08/23/2022 Are you currently employed? No Information not available 08/23/2022 Do you have transportation difficulties? No Information not available 08/23/2022 Are you able to walk independently without assistance or assistive devices? YESWOREST Information not available 08/23/2022 Do you have difficulty doing errands alone? No Information not available 08/23/2022 Are you able to care for yourself independently? Yes Information not available 08/23/2022 Do you have difficulty dressing, bathing, grooming, or toileting? No Information not available 08/23/2022 Mental Status Question Answer Note LastModified by Organizat ion Details LastModified Time Do you feel stressed (tense, restless, nervous, or anxious, or unable to sleep at night)? [id number] Information not available 08/23/2022 Do you have difficulty concentrating, remembering or making decisions? No Information no t available 08/23/2022 Family History Nothing Reported. Medical History Condition Response Atrial Fibrillation Y Pulmonary Embolism Y Past Encounters Encounter ID Performer Location Encounter Start Date Encounter Closed Date Diagnosis/Indication Diagnosis SNOMED-CT Code Diagnosis ICD10 Code Diagnosis IMO Codes Diagnosis Note [id number] Kalina Morris APRN [address] [address] 08/23/2022 14:30:08 08/23/2022 15:43:13 Atrial fibrillation 78834812 I48.91 continue meds per cardiology recommenda tionsobtai n current labs from prior pcp Long-term drug therapy 679900534 Z79.899 Health Concerns Section Related Observation LastModified by Organization Detai ls LastModified Time None Recorded Concern Status LastModified by Organization Details LastModified Time None Recorded Advance Directives Directive N: Payers Insurance Date Sequence Insurance Name Policy Number Policy Bell Covered Member ID Bell Member ID Guarantor Name 10/31/2022 1 [employer] (MEDICARE REPLACEMENT/A DVANTAGE - PPO) Haritha Felix Jr [id number] Cj Felix Notes Date Note Type Note Provider Name and Address Organization Details Recorded Time 08/23/2022 text/html 72 yr old male presents for afib- needing xalrelto ordered. pt states he was on coumidin but was switched to xalrelto and he can not afford it. pt has hx of 9 PE and was in hospital for 10 days. pt states he has no issues at this time. Kalina Morris, SPANISH INTERPRETER/TRANSLATOR [address], [place], [address], [place] - [facility] 08/23/2022 16:16:21
--- OUTSIDE RECORDS SUMMARY | 2025-06-13 12:49 | XMS_ITS | Clinical Summary ---
Author Organization [facility] Address [address] [place] [address] Care Team Providers Care Glacing Machine Tender Name Role Phone Mt [place] MD Primary Care Provider [phone] Allergies Active Allergy Reactions Criticality Noted Date [...] Overview (02/28/2016): a. June 2014, MPS at [facility] within normal limits. Coronary artery disease, [...] 2025 Insurance MEDICARE ADVANTAGE PPO Care Teams Glacing Machine Tender Relationship Specialty Start Date End Date Mt Colorado MD [address] [facility] [address] ATTN: [place] [id number] PCP - General Emergency Medicine 03/05/16
--- OUTSIDE RECORDS SUMMARY | 2025-06-13 12:49 | XMS_ITS | Clinical Summary ---
Author Organization [facility] Address [address] [place] [address] Care Team Providers Care Cloth Calender Name Role Phone Tone Cuenca Yessi SALAZAR Primary Care Provider [phone] Allergies Active Allergy Reactions Criticality Noted Date [...] (three) times a day. Active HYDROcodone-safia taminophen (Purchase) 7.5-325 MG tablet Active lisinopril 20 MG [...] Last Done Comments [facility]-Hepatitis C Screening 1950 [facility]-Medicare Annual Wellness (AWV) 1950 [facility]-Infant/Child/Adol SDOH Screenings 1950 [facility]- SDOH Screenings 1969 [facility]-Adult SDOH Screenings 1969 [facility]-DTaP,Tdap,and Td Vaccine s (1 - Tdap) 1970 CT Colonography 1996 Colonoscopy 1996 FIT-DNA 1996 FIT 1996 FOBT 1996 Sigmoidoscopy 1996 [facility]-Colorectal Cancer Screening 1996 [facility]-Zoster Vaccines (1 of 2) 2001 [facility]-Depression Screening 11/16/2024 11/17/2023 [id number] Vaccine (3 - season) 2025 07/02/2021, 10/14/2020 [...] patient's age to complete this topic Insurance [facility] MEDICARE Care Teams Cloth Calender Relationship Specialty Start Date End Date Tone Cuenca APRN [address] [facility] GEOVANNY Villalba [phone] PCP - General 11/17/23
[2025-06-13 14:55] LABS: C-Reactive Protein 5.6 mg/L (0-4)
[2025-06-16 06:16] LABS: I006-IgE Cockroach, German <0.10 kU/L (Class 0); T006-IgE Cedar, Mountain <0.10 kU/L (Class 0); T007-IgE Oak, White <0.10 kU/L (Class 0); T008-IgE Elm, American <0.10 kU/L (Class 0); T015-IgE Ash, White <0.10 kU/L (Class 0); T022-IgE Pecan, Hickory <0.10 kU/L (Class 0); W001-IgE Ragweed, Short <0.10 kU/L (Class 0); W011-IgE Thistle, Russian <0.10 kU/L (Class 0); W014-IgE Pigweed, Common <0.10 kU/L (Class 0)
[2025-06-17 15:11] LABS: Histoplasma Antibody Quant Negative (Neg:<1:1)
== END 2025-06-13 23:59 | disposition home or self-care (01) ==
LOC: LAB 12:46
PROVIDERS: PCP Nurse Practitioner Family; Visit Provider Internal Medicine Pulmonary Disease
DX: T78.40XA Allergy, unspecified, initial encounter (principal); R91.1 Solitary pulmonary nodule; J84.9 Interstitial pulmonary disease, unspecified
CPT/HCPCS: 82785; 85651; 86003; 86140; 86606; 86682; 86698; 87385

== ENCOUNTER 2025-06-16 13:29 | Outpatient (CLI) | payer MEDICARE, SELFPAY | END 2025-06-16 23:59 | disposition home or self-care (01) | LOC: LAB 13:29 | PROVIDERS: PCP Nurse Practitioner Family; Visit Provider Internal Medicine Pulmonary Disease | DX: J18.9 Pneumonia, unspecified organism (principal); I48.91 Unspecified atrial fibrillation; Z86.711 Personal history of pulmonary embolism | CPT/HCPCS: 87070; 87077; 87101; 87116; 87186; 87205; 87220 ==

== ENCOUNTER 2025-06-25 13:29 | Emergency (ER) | payer MEDICARE, SELFPAY ==
[2025-06-25 13:29] VITALS: BP 131/100; PULSE 98; RESP 17; TEMP 36.6; O2SAT 98; BMI 27.5
--- NOTE | 2025-06-25 13:33 | XR_ITS ---
PROCEDURE INFORMATION: Exam: XR Chest Exam date and time: 06/25/2025 1:58 PM Age: 75 years old Clinical indication: Pain; Other: Cp; Additional info: Chest pain TECHNIQUE: Imaging protocol: Radiologic exam of the chest. Views: 1 view. COMPARISON: CT LUNG SCREENING 05/09/2025 1:02 PM FINDINGS: Lungs: Mild patchy opacities in the right lower lobe and left upper lobe likely represent atelectasis or infection. Pleural spaces: Unremarkable. No pleural effusion. No pneumothorax. Heart/Mediastinum: Unremarkable. No cardiomegaly. Bones/joints: Unremarkable. IMPRESSION: Mild patchy opacities in the right lower lobe and left upper lobe likely represent atelectasis or infection.
--- OUTSIDE RECORDS SUMMARY | 2025-06-25 13:46 | XMS_ITS ---
Laboratory report Created on: June 14, 2025 GUERLINETIMI FERNANDEZ : 1950 Sex: Male Author Organization Unknown PROBLEMS Problems List Code Description RESULTS Laboratory Orders Date Order Code Test 2024-12-14 [id number] PSA TOTAL+% FREE (SERIAL) Laboratory Results Date LOINC Test Value Unit Reference Range Interpre tation 2024-12-14 [id number] PROSTATE SPECIFIC AG 7.4 NG/ML 0.0-4.0 H 2024-12-14 [id number] PSA, FREE 1.41 NG/ML N/A 2024-12-14 [id number] % FREE PSA 19.1 % 2024-12-14 [id number] PDF IMAGE
--- OUTSIDE RECORDS SUMMARY | 2025-06-25 13:46 | XMS_ITS | Data Portability ---
Author Organization [facility] Address [address] [place] [address] Assessment No assessment recorded. Plan of Treatment Reminders Order Date Submit Date Provider Last Modified By Organization Details Last Modified Time Details Appointments None recorded. Lab None recorded. Referral None recorded. Procedures None recorded. Surgeries None recorded. Imaging None recorded. Medication Orders Xarelto 20 mg tablet [address], [address], 3 15:36:53 Patient TargetsNo targets recorded. Patient InstructionsNo instructions recorded. Reason for Referral None Reported. Problems Name Problem SNOMED Code Status Onset Date Resolution Date Notes Provider Name and Address Organization Details Recorded Time Atrial fibrillation 27616255 Active Lona De Souza [facility], [facility] 3 15:03:05 Hypertensive disorder 88952856 Active Lona De Souza [facility] 3 15:03:22 Hyperlipidemia 94981418 Active Lakeshia De Souza [facility] 3 15:03:38 Problem Notes None recorded. Procedures Surgical History Date Name Laterality Status Provider Name and Address Organization Details Recorded Time insertion of stent into vein completed Lona De Souza [facility] 08/23/2022 15:11:04 Imaging Results None recorded. Procedure Notes None recorded. Medical Equipment None Reported. Allergies Allergen ID Allergen Name Allergen Category Reaction Reaction Severity Criticality Documentation Date Start Date Code Code System Note Provider Name and Address Organization Details Recorded Time 737175 Product containin g penicilli n (product) medicatio n rash Not available high 08/23/2022 15429 8001 SNOMED Lona De Souza [place], [place] [...] Address Organization Details Last Updated DateTime 3 442863. 05 g 98.2 [degF] 50 /min 96 % 18 /min 0 30.3 kg/m2 190.5 cm 124/78 mm[Hg] Lona De Souza [place] - [facility] 3 14:59:27 Social History [...] Or The Highest Degree You Have Received? WS31678-0 Information not available 08/23/2022 Have There Been [...] Do You Have A Medical Power Of Vending Machine Coin Collector? No Information not available 08/23/2022 What Is [...] anxious, or unable to sleep at night)? [id number] Information not available 08/23/2022 Do you have difficulty concentrating, remembering or making decisions? No Information no t available 08/23/2022 Family History Nothing Reported. Medical History Condition Response Atrial Fibrillation Y Pulmonary Embolism Y Past Encounters Encounter ID Performer Location Encounter Start Date Encounter Closed Date Diagnosis/Indication Diagnosis SNOMED-CT Code Diagnosis ICD10 Code Diagnosis IMO Codes Diagnosis Note [id number] Kalina Morris APRN [address] [address] 08/23/2022 14:30:08 08/23/2022 15:43:13 Atrial fibrillation 05907485 I48.91 continue meds per cardiology recommenda tionsobtai n current labs from prior pcp Long-term drug therapy 255698760 Z79.899 Health Concerns Section Related Observation LastModified by Organization Detai ls LastModified Time None Recorded Concern Status LastModified by Organization Details LastModified Time None Recorded Advance Directives Directive N: Payers Insurance Date Sequence Insurance Name Policy Number Policy Bell Covered Member ID Bell Member ID Guarantor Name 10/31/2022 1 [employer] (MEDICARE REPLACEMENT/A DVANTAGE - PPO) Haritha Felix Jr [id number] Cj Felix Notes Date Note Type Note [...] no issues at this time. Kalina Morris, [employer] REPA[employer]ER [address], [place], [address], [place] - [facility] 08/23/2022 16:16:21
--- OUTSIDE RECORDS SUMMARY | 2025-06-25 13:46 | XMS_ITS ---
Laboratory report Created on: June 14, 2025 TIMI CUNHA : 1950 Sex: Male Author Organization Unknown PROBLEMS Problems List Code Description RESULTS Laboratory Orders Date Order Code Test 2024-02-05 442437 TESTOSTERONE, FR EE+TOTAL LC/MS Laboratory Results Date LOINC Test Value Unit Reference Range Interpre tation 2024-02-05 2986-8 TESTOSTERONE, TO LUCA, LC/MS 542.2 NG/DL 264.0-916.0 2024-02-05 2991-8 FREE TESTOSTERONE(DIRECT) 5.1 PG/ML 6.6-18.1 L
--- OUTSIDE RECORDS SUMMARY | 2025-06-25 13:46 | XMS_ITS ---
Laboratory report Created on: June 18, 2025 GUERLINETIMI FERNANDEZ : 1950 Sex: Male Author Name NESSA BROWER Organization Unknown PROBLEMS Problems List Code Description RESULTS Laboratory Orders Date Order Code Test 2025-06-13 075164 HISTOPLASMA GAL' FARIDA AG UR Laboratory Results Date LOINC Test Value Unit Reference Range Interpre tation 2025-06-13 11927-1 HISTOPLASMA GAL' FARIDA AG UR N <0.2 NG/ML
--- OUTSIDE RECORDS SUMMARY | 2025-06-25 13:46 | XMS_ITS | Clinical Summary ---
Author Organization Healthcare Address [address] [place] [address] Care Team Providers Care Engineer Fishing Vessel Name Role Phone Tone Cuenca Yessi SALAZAR Primary Care Provider Allergies Active Allergy Reactions Criticality Noted Date [...] (three) times a day. Active HYDROcodone-safia taminophen ([place]ada) 7.5-325 MG tablet Active lisinopril 20 MG [...] Last Done Comments [facility]-Hepatitis C Screening 1950 [facility]-Medicare Annual Wellness (AWV) 1950 [facility]-/Child/Adol SDOH Screenings 1950 [facility]- SDOH Screenings 1969 [facility]-Adult SDOH Screenings 1969 [facility]-DTaP,Tdap,and Td Vaccine s (1 - Tdap) 1970 CT Colonography 1996 Colonoscopy 1996 FIT-DNA 1996 FIT 1996 FOBT 1996 Sigmoidoscopy 1996 [facility]-Colorectal Cancer Screening 1996 [facility]-Zoster Vaccines (1 of 2) 2001 [facility]-Depression Screening 11/16/2024 11/17/2023 LRP-[id number]-16 Vaccine (3 - season) 2025 07/02/2021, 10/14/2020 [...] patient's age to complete this topic Insurance [facility] MEDICARE Care Teams Engineer Fishing Vessel Relationship Specialty Start Date End Date Tone Cuenca APRN [address] [facility] GEOVANNY Villalba [id number] PCP - General 11/17/23
--- OUTSIDE RECORDS SUMMARY | 2025-06-25 13:46 | XMS_ITS ---
Laboratory report Created on: June 18, 2025 GUERLINE TIMI : 1950 Sex: Male Author Name NESSA BROWER Organization Unknown PROBLEMS Problems List Code Description RESULTS Laboratory Orders Date Order Code Test 2025-06-13 [id number] ASPERGILLUS FUMI GATUS IGG Laboratory Results Date LOINC Test Value Unit Reference Range Interpre tation 2025-06-13 48311-2 ASPERGILLUS FUMI GATUS IGG 11.5 MG/L 0.0-50.6
--- OUTSIDE RECORDS SUMMARY | 2025-06-25 13:46 | XMS_ITS | Clinical Summary ---
Author Organization [facility] Address [address] [place] [address] Care Team Providers Care B Operator Name Role Phone [place] MD Primary Care Provider [phone] Allergies Active Allergy Reactions Criticality Noted Date [...] Overview (02/28/2016): a. June 2014, MPS at [facility] within normal limits. Coronary artery disease, [...] 2025 Insurance MEDICARE ADVANTAGE PPO Care Teams B Operator Relationship Specialty Start Date End Date [place] MD [address] [facility] [address] ATTN: [place] [address] PCP - General Emergency Medicine 03/05/16
--- OUTSIDE RECORDS SUMMARY | 2025-06-25 13:46 | XMS_ITS ---
Laboratory report Created on: June 21, 2025 TIMI CUNHA : 1950 Sex: Male Author Name NESSA BROWER Organization Unknown PROBLEMS Problems List Code Description RESULTS Laboratory Orders Date Order Code Test 2025-06-13 [id number] ALLERGENS W/TOTA L IGE AREA 5 2025-06-13 217614 STRONGYLOIDES IG G ANTIBODY 2025-06-13 106324 HISTOPLASMA ABS, QN, DID Laboratory Results Date LOINC Test Value Unit Reference Range Interpre tation 2025-06-13 58463-6 IMMUNOGLOBULIN E, TOTAL 84 IU/ML 6-495 2025-06-13 6096-2 K322-EYU D PTERONYSSINUS .17 KU/L A 2025-06-13 6095-4 Z630-YFO D FARINAE .12 KU/L A 2025-06-13 6833-8 V110-HDU CAT DANDER <0.10 KU/L 2025-06-13 6098-8 S545-DUA DOG DANDER <0.10 KU/L 2025-06-13 6181-2 Q425-AYV MOUSE URINE <0.10 KU/L 2025-06-13 6041-8 S725-KLJ BERMUDA GRASS <0.10 KU/L 2025-06-13 6265-3 H416-PRF ARI GRASS <0.10 KU/L 2025-06-13 6078-0 F658-MTS COCKROA CH, WELSH <0.10 KU/L 2025-06-13 6212-5 R228-CTD PENICIL LIUM CHRYSOGEN .12 KU/L A 2025-06-13 6075-6 T042-OLL CLADOSP ORIUM HERBARUM <0.10 KU/L 2025-06-13 6025-1 D409-WOX ASPERGI LLUS FUMIGATUS <0.10 KU/L 2025-06-13 6020-2 B001-RVG ALTERNA MERRY ALTERNATA <0.10 KU/L 2025-06-13 7155-5 Y998-PPQ MAPLE/B OX ELDER <0.10 KU/L 2025-06-13 64431-0 O756-IQC COMMON SILVER BIRCH <0.10 KU/L 2025-06-13 6178-8 S809-LLP CEDAR, MOUNTAIN <0.10 KU/L 2025-06-13 6189-5 Y246-MPD OAK, WHITE <0.10 KU/L 2025-06-13 6109-3 L924-YWL ELM, ETHIOPIAN <0.10 KU/L 2025-06-13 45994-7 E417-ZVV WALNUT <0.10 KU/L 2025-06-13 97326-7 P781-TXY MAPLE L EAF SYCAMORE <0.10 KU/L 2025-06-13 6090-5 G630-QEQ C[place] <0.10 KU/L 2025-06-13 6278-6 D420-TQT CHELY, WHITE <0.10 KU/L 2025-06-13 6209-1 E464-RFS PECAN, HICKORY <0.10 KU/L 2025-06-13 6281-0 Z116-GPC WHITE MULBERRY <0.10 KU/L 2025-06-13 6085-5 G911-VHZ RAGWEED, SHORT <0.10 KU/L 2025-06-13 6234-9 Y907-QRB THISTLE , ENGLISH <0.10 KU/L 2025-06-13 7604-2 J935-ZRP PIGWEED , COMMON <0.10 KU/L 2025-06-13 6244-8 I602-CYQ SHEEP SORREL <0.10 KU/L 2025-06-13 72817-4 STRONGYLOIDES IG G ANTIBODY N NEGATIVE 2025-06-13 56269-0 HISTOPLASMA ABS, QN, DID N NEG:<1:1
[2025-06-25 13:59] LABS: Hematocrit 49.9 % (42.0-52.0); Hemoglobin 16.8 g/dL (14.1-18.0); Immature Granulocytes % 0.2 %; Mean Corpuscular HGB Conc 33.7 g/dL (31.8-35.4); Mean Corpuscular Hemoglobin 34.2 pg (27.0-31.2); Mean Corpuscular Volume 101.6 fl (80-94); Nucleated Red Blood Cells % 0 %; Platelet Count 189 K/mm3 (142-424); Red Blood Count 4.91 M/mm3 (4.60-6.20); Red Cell Distribution Width-SD 47.8 fL; White Blood Count 9.0 K/mm3 (4.8-10.8)
[2025-06-25 14:01] LABS: Chloride 105 mmol/L (98-107)
[2025-06-25 14:02] LABS: Albumin Level 4.1 g/dl (3.5-5.0); Potassium 4.4 mmoL/L (3.5-5.1); Sodium 144 mmol/L (136-145)
[2025-06-25 14:04] LABS: Alanine Aminotransferase 18 U/L (12-78); Alkaline Phosphatase 46 U/L (38-126); Anion Gap 13.4 mEq/L (5-15); Aspartate Amino Transferase 28 U/L (17-59); Bilirubin,Total 0.7 mg/dl (0.2-1.3); Blood Urea Nitrogen 8 mg/dl (9-20); Carbon Dioxide 30 mmol/L (22.0-30.0); Creatinine Clearance Estimated 96 mL/min (50-200); Creatinine,Serum 1.00 mg/dl (0.66-1.25); Estimated Glomerular Filt Rate 73 ml/min (>60); GFR (African American) 88 ML/MIN (>60)
[2025-06-25 14:05] LABS: Albumin/Globulin Ratio 1.3 (1.1-1.8); Calcium 10.0 mg/dl (8.4-10.2); Globulin 3.1 g/dL (1.3-3.2); Glucose 98 mg/dl (74-100); Total Protein,Serum 7.2 g/dl (6.3-8.2)
--- NOTE | 2025-06-25 14:10 | ED_ITS ---
<Statement entered by Francisca Dias MD - 06/25/25 15:41> I was consulted by the GENA, and we discussed the complexity of the problems being addressed. I approved the treatment and management plan for this patient's care in the emergency department, thus performing a substantive portion of the medical decision making. Francisca Dias MD, SOMMER, FACEP Discharge Plan Disposition Patient Disposition: Home, Self-Care Condition: Good Prescriptions Prescriptions: No Action sotalol 160 mg tablet 160 mg PO BID Qty: 180 3RF lisinopril 20 mg tablet 20 mg PO DAILY cholecalciferol (vitamin D3) 2,000 unit capsule 2,000 unit PO DAILY sennosides-docusate sodium 8.6-50 mg capsule 1 tab-cap PO BID PRN (Reason: constipation) 90 Days Qty: 120 3RF ascorbic acid (vitamin C) 500 mg capsule, extended release 500 mg PO DAILY Xarelto 20 mg tablet See Rx Instructions .ROUTE .COMPLEX Qty: 90 3RF Dose Instruction: TAKE 1 TABLET EVERY DAY FOR AFIB; MUST ADMINISTER WITH EVENING MEAL Rx Instructions: TAKE 1 TABLET EVERY DAY FOR AFIB; MUST ADMINISTER WITH EVENING MEAL simvastatin 40 mg tablet See Rx Instructions .ROUTE .COMPLEX Qty: 90 3RF Dose Instruction: TAKE 1 TABLET EVERY DAY FOR CHOLESTEROL Rx Instructions: TAKE 1 TABLET EVERY DAY FOR CHOLESTEROL tamsulosin 0.4 mg capsule See Rx Instructions .ROUTE .COMPLEX Qty: 90 2RF Dose Instruction: TAKE ONE CAPSULE BY MOUTH EVERY DAY Rx Instructions: TAKE ONE CAPSULE BY MOUTH EVERY DAY metoprolol tartrate 25 mg tablet 25 mg PO .prn Qty: 30 2RF Rx Instructions: pt is to take only on onset of atrial Fib and q8hs for 24 hours alprazolam 1 mg tablet 1 mg PO BID PRN (Reason: anxiety) Qty: 45 2RF Rx Instructions: Monthly hydrocodone-acetaminophen 7.5-325 mg tablet 1 tab PO Q6H PRN (Reason: pain) 30 Days Qty: 120 0RF gabapentin 400 mg capsule 400 mg PO TID Qty: 90 2RF aspirin [Children's Aspirin] 81 mg Tablet,Chewable 81 mg PO DAILY Qty: 30 3RF Referrals Follow up/Referrals: Tone Cuenca APRN [Primary Care Provider, Family Practice] - See instructions Activity Restrictions/Add. Instructions Additional Instructions/Restrictions: Follow-up with cardiology this week Follow-up with PCP If symptoms worsen or do not improve return Monitor heart rate Metoprolol twice daily until seen by cardiology on Friday- Clinical Impressions Clinical Impression: A-fib Qualifiers: Atrial fibrillation type: unspecified Qualified Code(s): I48.91 - Unspecified atrial fibrillation Instructions Patient Instructions: Atrial Fibrillation, DI for Atrial Fibrillation Print Language Print Language: Finnish Discharge ED Provider: Francisca Dias HPI General Chief Complaint: Chest Pain Stated Complaint: chest pain Time Seen by Provider: 06/25/25 13:45 Mode of Arrival: Ambulatory Source of Information: Patient Description of Symptoms (Recalled from ER Triage Doc. by RN): Patient states he has been having pain in the center of his chest since about 0930 yesterday morning, states he thinks he is in atrial fibrillation and has metoprolol he can take 3 doses of to help. Took his last dose at 0530 this morning. History of Present Illness HPI narrative: 75-year-old male presents for A-fib and intermediate chest pain that started last night. Patient states he has a history of A-fib and has as needed metoprolol to take if he goes into A-fib. Patient states that started last night and he took a meta Toprol waited 8 hours took another dose and then this morning took another dose at 5 AM and was told after the third dose to go to the emergency room. Patient states he noticed his blood pressure being high but is having no other symptoms. Patient states he came in to be evaluated because his blood pressure was high and he was afraid he would have a stroke. Patient states he is taking all of his medicine and has not missed any doses of his blood thinner. Related Data Home Medications ?Medication ?Instructions ?Recorded ?Confirmed cholecalciferol (vitamin D3) 50 2,000 unit PO DAILY Lerma pplement 12/22/17 06/13/25 mcg (2,000 unit) capsule ascorbic acid (vitamin C) 500 mg 500 mg PO DAILY 11/1606/13/25 capsule,extended release lisinopril 20 mg tablet 20 mg PO DAILY 06/13/25 Previous Rx's ?Medication ?Instructions ?Recorded aspirin 81 mg chewable tablet 81 mg PO DAILY #30 tabs 03/06/23 (Children's Aspirin) sennosides 8.6 mg-docusate sodium 1 tab-cap PO BID PRN constipation 09/15/23 50 mg capsule 90 days #120 caps rivaroxaban 20 mg tablet (Xarelto) See Rx Instructions .Route 08/09/24 .COMPLEX #90 tabs sotalol 160 mg tablet 160 mg PO BID #180 tabs 08/15 simvastatin 40 mg tablet See Rx Instructions .Route 0 02/10/25 .COMPLEX #90 tabs tamsulosin 0.4 mg capsule See Rx Instructions .Route 0 03/31/25 .COMPLEX #90 caps metoprolol tartrate 25 mg tablet 25 mg PO .prn atrial fib #30 tabs 04/04/25 alprazolam 1 mg tablet 1 mg PO BID PRN anxiety #45 tabs 06/07/25 gabapentin 400 mg capsule 400 mg PO TID for pain #90 c aps 06/14/25 hydrocodone 7.5 mg-acetaminophen 1 tab PO Q6H PRN pain 30 days #120 06/14/25 325 mg tablet tabs Allergies Allergy/AdvReac Type Severity Reaction Status Date / Time amoxicillin Allergy Intermediate rash Verified 06/13/25 11:46 Penicillins Allergy Intermediate Hives Verified 06/13/25 11:46 prasugrel (From Effient) AdvReac Intermediate Dizziness Verified 06/13/25 11:46 and burning in chest clopidogrel (From Plavix) AdvReac burning in Verified 06/13/25 11:46 chest PFSH PFSH Disclaimer: The information contained in this section may have been updated after the patient was seen, as this information can be updated by other users. Medical History Lung nodule Burning with urination Abnormal cardiovascular stress test Fall Renal cyst Paroxysmal atrial fibrillation Bradycardia Chest pain History of peripheral vascular disease History of pulmonary embolus (PE) A-fib HLD (hyperlipidemia) HTN (hypertension) Smoking greater than 30 pack years Mediastinal lymphadenopathy Multiple lung nodules on CT Nodule of right lung Atypical pneumonia Back pain with history of spinal surgery Surgical History History of lung biopsy S/P peripheral artery angioplasty with stent placement History of cardiac cath History of back surgery History of colonoscopy Family History Other Asthma COPD (chronic obstructive pulmonary disease) Family history of atrial fibrillation Hypertension Social History Smoking Status: Current every day smoker tobacco type: cigarettes packs per day: 1 quit status: not considering quitting alcohol intake: current alcohol intake frequency: a few times a week substance use type: denies use, marijuana and prescription drug current occupational status: retired Travel in the last 8 weeks?: None household members: spouse housing: house marital status: service: Yes senior care: No pets and animals: Yes Hx Recent Travel: No caffeine: No Have you lived/traveled outside US in past 30 days?: No Contact w/someone who lives/traveled outside US past 30 days?: No Exposure to someone with infectious disease in past 14 days?: No Do you have a fever (greater than 100.4 F or 38 C)?: No Have you tested positive for COVID-19?: No Exposed to someone with COVID-19 in past 14 days?: No Do you have a sore throat?: No Do you have a cough?: No Do you have any weakness?: No Do you have any diarrhea?: No Are you experiencing any unusual bleeding?: No Do you have any muscle aches/pain?: No Do you have any abdominal pain?: No Are you experiencing loss of taste or smell?: No Other Medical History Have you received the Flu Vaccine for this season: No Have you received the Pneumonia Vaccine: No ROS Obtained: Yes Systems reviewed as appropriate & no additional complaints except as documented Cardiovascular Cardiovascular: Reports system reviewed and no additional complaints, except as documented, Reports as per HPI, Reports chest pain and Reports irregular heart rhythm Physical Exam General General appearance: alert and in no apparent distress ENT ENT exam: Present normal exam Respiratory Respiratory exam: Present normal lung sounds bilaterally Cardiovascular Cardiovascular exam: Present irregular rhythm Neurological Exam Neurological exam: Present alert and oriented X3 Skin Skin exam: Present warm and intact HEART Score HEART Score HEART Score assessment performed?: Yes History (anamnesis): Moderately suspicious ECG: Non-specific disturbance Age: >65 years Risk factors: Atherosclerosis history Troponin: </= normal limit HEART Score: 6 Critical Care Critical Care Time Critical Care Time: No Medical Decision Making Medical Records Medical records reviewed: Yes I reviewed the patient's medical records. Jaya Inquiry Pt receiving controlled substance: No Vital Signs Vital Signs: 06/25/25 13:29 Temperature 97.8 F Temperature Source Oral Pulse Rate [Right Brachial] 98 H Respiratory Rate 17 Blood Pressure [Right Arm] 131/100 H Blood Pressure Mean [Right Arm] 110 Blood Pressure Source [Right Arm] Automatic Cuff Blood Pressure Position [Right Arm] Sitting 02 Sat by Pulse Oximetry 98 Oxygen Delivery Method Room Air Lab Data Lab results reviewed: Yes I reviewed the patient's lab results. Labs: Lab Results 06/25/25 13:30: WBC 9.0, RBC 4.91, Hgb 16.8, Hct 49.9, MCV 101.6 H, MCH 34.2 H, MCHC 33.7, RDW 12.7, Plt Count 189, MPV 11.8 H, Neut % (Auto) 36.5 L, Lymph % (Auto) 37.8, Fountain % (Auto) 7.2, Eos % (Auto) 17.7 H, Baso % (Auto) 0.6, Neut # (Auto) 3.3, Lymph # (Auto) 3.4, Fountain # (Auto) 0.7, Eos # (Auto) 1.6 H, Baso # (Auto) 0.1, D-Dimer 0.41, Sodium 144, Potassium 4.4, Chloride 105, Carbon Dioxide 30, Anion Gap 13.4, BUN 8 L, Creatinine 1.00, Estimated Creat Clear 96, Estimated GFR 73, Est GFR ( Amer) 88, Glucose 98, Calcium 10.0, Total Bilirubin 0.7, AST 28, ALT 18, Alkaline Phosphatase 46, Troponin I < 0.01, Total Protein 7.2, Albumin 4.1, Globulin 3.1, Albumin/Globulin Ratio 1.3 06/25/25 13:30 06/25/25 13:30 Response Orders (Tests/Meds): ORDERS Category Date Time Status XR chest portable Stat Exams 06/25/25 13:33 Completed Complete Blood Count Auto Diff Stat Lab 06/25/25 13:30 Completed Comprehensive Metabolic Panel Stat Lab 06/25/25 13:30 Completed D-Dimer Stat Lab 06/25/25 13:30 Completed Troponin I Q3H Lab 06/25/25 16:45 Ordered Troponin I Q3H Lab 06/25/25 19:45 Ordered Troponin I Stat Lab 06/25/25 13:30 Completed MDM Narrative Medical Decision Narrative: In summary patient is a 75-year-old male who presents to the emergency department for evaluation of A-fib since last night with intermediate chest pain. Patient is hemodynamically stable upon arrival, afebrile. A-fib with a rate of 82. Differential diagnosis includes A-fib, [place],. Initial workup will be conducted with labs, EKG,. Initial inventions include labs, EKG. Initial workup reviewed by de labs unremarkable, D-dimer negative, troponin negative,. Upon repeat evaluation discussed with patient regarding cardioversion or p.o. medication with his heart rate being controlled in the 80s and vital signs stable, At this time patient wants to try medication and follow-up with cardiology. Spoke with Dr. Gardner he recommends patient to take med metoprolol twice daily with his sotalol and follow-up with him on Friday. Patient states he is okay to be discharged and follow-up with cardiology on Friday given this will discharge patient to follow-up with Kendra on Friday
[2025-06-25 14:19] LABS: Troponin I < 0.01 ng/ml (0.00-0.034)
[2025-06-25 14:26] LABS: D-Dimer 0.41 ug/mL (0.0-0.5)
[2025-06-25 14:31] VITALS: BP 116/94; PULSE 73; RESP 16; O2SAT 97
[2025-06-25 15:00] VITALS: BP 119/72; PULSE 55; RESP 16
[2025-06-25 15:31] VITALS: BP 104/87; PULSE 63; RESP 18; O2SAT 96
[2025-06-25 16:08] VITALS: BP 90/46; PULSE 100; RESP 18; TEMP 36.9; O2SAT 98
== END 2025-06-25 16:14 | disposition home or self-care (01) ==
PROVIDERS: Nurse Practitioner Family; Emergency Provider Student in an Organized Health Care Education/Training Program; PCP Nurse Practitioner Family
DX: I48.91 Unspecified atrial fibrillation (principal); R07.9 Chest pain, unspecified; F17.210 Nicotine dependence, cigarettes, uncomplicated; I10 Essential (primary) hypertension; E78.5 Hyperlipidemia, unspecified; Z95.5 Presence of coronary angioplasty implant and graft; Z79.01 Long term (current) use of anticoagulants
CPT/HCPCS: 71045; 80053; 84484; 85025; 85378; 93005; 99284; 99285